=== PATIENT | female | born 1985 | race Caucasian/White ===

== ENCOUNTER 2020-09-14 13:41 | Outpatient (REF) | payer MEDICAID, SELFPAY ==
--- NOTE | ~2020-09-14 | MM_ITS ---
EXAMINATION: MM DIAGNOSTIC DIGITAL BREAST TOMOSYNTHESIS, BILATERAL US DIAGNOSTIC ULTRASOUND BREAST, BILATERAL CLINICAL INFORMATION: 35-year-old with chronic bilateral clear and milky nipple discharge with squeezing. Family history breast cancer in mother, age 50s. No prior breast imaging. The lifetime risk of breast cancer based on the Tyrer-Cuzick Model is 17%. COMPARISON: None (current study represents initial baseline exam). TECHNIQUE: Digital breast tomosynthesis is performed in both the craniocaudal and mediolateral oblique views along with computer-aided detection (CAD). Synthesized 2D images are generated from the tomosynthesis. Additional rolled right CC view obtained. Ultrasound of each breast is targeted to the retroareolar and periareolar regions using grayscale imaging and color Doppler without and with harmonics. FINDINGS: There are scattered areas of fibroglandular density (ACR BI-RADS breast composition Category b). There are no significant masses, abnormal calcifications, or other abnormalities. There is no architectural abnormality. No duct ectasia. The axilla and skin contours are unremarkable. The left breast has circumscribed 0.6 cm intramammary node mid 5:30 o'clock position with central fatty hilus on tomography. Targeted ultrasound left breast shows no cystic or solid mass, architectural abnormality, or focal duct ectasia. No skin thickening or edema tracking in soft tissue planes. Targeted ultrasound right breast demonstrates circumscribed nodule retroareolar 9:00 position 1 cm from nipple measuring 0.5 cm. This most likely represents fibroadenoma and may be reassessed again with ultrasound in 6 months. There is no architectural abnormality or duct ectasia. No edema tracking in soft tissue planes or skin thickening. Results are discussed with the patient at time of visit. MM/MM tomosynthesis diagnostic BI IMPRESSION: 1. No mammographic evidence of malignancy. 2. Unremarkable targeted left breast ultrasound. 3. Periareolar circumscribed nodule 9:00 right breast under 1 cm, likely fibroadenoma. ASSESSMENT: BI-RADS 3: Probably Benign RECOMMENDATION: 1. Patient's chronic bilateral nipple discharge should be managed based on the clinical impression. This may be correlated with laboratories for possible systemic endocrine etiology. 2. Targeted right breast ultrasound in 6 months for probable subcentimeter fibroadenoma. 3. Annual bilateral mammography, beginning age 40 or earlier as clinical risk factors warrant. This patient's information was entered into a reminder system with a target due date for their next mammogram.
== END 2020-09-14 13:42 | disposition home or self-care (01) ==
LOC: HO.MAMMO 13:41
PROVIDERS: PCP Internal Medicine; Visit Provider Internal Medicine
DX: N64.4 Mastodynia (principal); N64.52 Nipple discharge; Z80.3 Family history of malignant neoplasm of breast
CPT/HCPCS: 76642; 77062; 77066

== ENCOUNTER 2021-03-29 13:29 | Outpatient (REF) | payer MEDICAID, SELFPAY ==
--- NOTE | ~2021-03-29 | US_ITS ---
EXAMINATION: US DIAGNOSTIC ULTRASOUND BREAST, RIGHT CLINICAL INFORMATION: Short interval six-month follow-up probable fibroadenoma anterior 9:00 right breast under 1 cm. Age 36. COMPARISON: Mammography and targeted breast ultrasound 09/14/2020. TECHNIQUE: Ultrasound right breast is targeted to the outer quadrant. Grayscale imaging and color Doppler are performed without and with harmonics. FINDINGS: The suspected fibroadenoma anterior 9:00 position under 1 cm is similar in size, contour, and echogenicity. There is no interval solid mass or architectural abnormality. No focal duct ectasia. Results are discussed with the patient at time of visit. US/US breast RT limited IMPRESSION: Stable probable subcentimeter fibroadenoma anterior 9:00 position. ASSESSMENT: BI-RADS 3: Probably Benign RECOMMENDATION: Targeted ultrasound right breast in 6 months. This patient's information was entered into a reminder system with a target due date for their next mammogram.
== END 2021-03-29 13:30 | disposition home or self-care (01) ==
LOC: HO.MAMMO 13:29
PROVIDERS: PCP Internal Medicine; Visit Provider Internal Medicine
DX: R92.2 Inconclusive mammogram (principal)
CPT/HCPCS: 76642

== ENCOUNTER 2021-05-25 15:35 | Outpatient (REF) | payer MEDICAID, SELFPAY ==
--- NOTE | ~2021-05-25 | XR_ITS ---
EXAMINATION: XR SHOULDER, LEFT CLINICAL INFORMATION: Left shoulder pain. COMPARISON: None TECHNIQUE: Four views of the left shoulder. FINDINGS: The bones and soft tissues are normal. No fracture. Glenohumeral and acromioclavicular alignment is anatomic with normal joint space. No abnormal soft tissue calcifications. XR/XR shoulder LT min 2V IMPRESSION: Normal left shoulder.
== END 2021-05-25 15:36 | disposition home or self-care (01) ==
LOC: HO.XRAY 15:35
PROVIDERS: Absent Provider Internal Medicine; PCP Internal Medicine; Visit Provider Family Medicine
DX: M25.512 Pain in left shoulder (principal)
CPT/HCPCS: 73030

== ENCOUNTER 2021-09-13 15:54 | Outpatient (REF) | payer MEDICAID, SELFPAY ==
--- NOTE | ~2021-09-13 | XR_ITS ---
EXAMINATION: XR HAND, LEFT CLINICAL INFORMATION: Fall, trauma, pain COMPARISON: None TECHNIQUE: Left hand is imaged in 3 views. FINDINGS: There is no acute or healing fracture, dislocation, or destructive process. The ulnar variance is within neutral. The pronator quadratus fat pad appears normal. No arthropathy. XR/XR hand wrist LT IMPRESSION: No fracture or dislocation.
--- NOTE | ~2021-09-13 | XR_ITS ---
EXAMINATION: XR LUMBOSACRAL SPINE CLINICAL INFORMATION: Fall, trauma, pain COMPARISON: AP pelvis 10/15/2016, radiographs lumbar spine 11/18/2009 TECHNIQUE: Three views of the lumbosacral spine. FINDINGS: There is normal lumbar vertebral segmentation with 5 nonrib-bearing lumbar vertebrae of normal height and normal lumbar lordosis. There is no interval lumbar vertebral fracture or compression, spondylolisthesis, destructive process. Again, there are multilevel small vertebral endplate Schmorl's nodes. There is mild disc narrowing L2-L3 and L4-L5 and degenerative disc changes also at T12-L1. The SI joints are unremarkable. Again, there is no erosive involving the sacrum and ilium left SI joint. No joint narrowing or erosive change. IUD overlying central pelvis. Bowel gas unremarkable. XR/XR lumbar spine 2-3V IMPRESSION: 1. No acute bony abnormality. No vertebral compression or fracture. 2. Degenerative disc changes T12-L1, L2-L3, L4-L5. 3. Old multilevel vertebral endplate Schmorl's nodes. Old sclerosis left SI joint. No joint narrowing or erosive change.
--- NOTE | ~2021-09-13 | XR_ITS ---
EXAMINATION: XR HIP, RIGHT CLINICAL INFORMATION: Fall, trauma, right hip pain COMPARISON: Lumbar radiographs 09/13/2021, pelvis 10/15/2016 TECHNIQUE: Two views of the right hip. FINDINGS: There is no fracture or dislocation. Bony mineralization is normal. Fine linear lucency overlying the right greater trochanter extends beyond the bone and is related to superimposed soft tissue planes. There is no hip joint narrowing or erosive change. Pubic shows no diastases. There is an IUD overlying central pelvis. XR/XR hip RT min 2V IMPRESSION: No fracture or dislocation.
== END 2021-09-13 15:55 | disposition home or self-care (01) ==
LOC: HO.XRAY 15:54
PROVIDERS: Absent Provider Internal Medicine; PCP Internal Medicine; Visit Provider Family Medicine
DX: M25.532 Pain in left wrist (principal); M25.551 Pain in right hip
CPT/HCPCS: 72100; 73110; 73130; 73502

== ENCOUNTER 2021-10-18 14:17 | Outpatient (REF) | payer MEDICAID, SELFPAY ==
--- NOTE | ~2021-10-18 | US_ITS ---
EXAMINATION: US DIAGNOSTIC ULTRASOUND BREAST, RIGHT CLINICAL INFORMATION: Follow-up probable fibroadenoma anterior 9:00 right breast measuring under 1 cm. Age 36.. COMPARISON: Targeted ultrasound right breast 03/29/2021, 09/14/2020 (diagnostic baseline, BI-RADS 3). TECHNIQUE: Ultrasound of the right breast is performed with real-time infante scale imaging and color Doppler. Ultrasound is targeted to the lateral periareolar breast. FINDINGS: The solid nodule with macrolobulated margins under 1 cm 9:00 position periareolar appears stable from prior ultrasound exams. There is no increasing nodule or regular margins. No interval cystic or solid mass or focal duct ectasia. Lesion will be reassessed again in one year to conclude long-term surveillance. Results are discussed with the patient at time of visit. US/US breast RT limited IMPRESSION: Stable small solid nodule periareolar 9:00 position measuring under 1 cm, likely fibroadenoma. ASSESSMENT: BI-RADS 3: Probably Benign RECOMMENDATION: Targeted right breast ultrasound in 12 months. This patient's information was entered into a reminder system with a target due date for their next breast imaging.
== END 2021-10-18 14:18 | disposition home or self-care (01) ==
LOC: HO.MAMMO 14:17
PROVIDERS: PCP Internal Medicine; Visit Provider Internal Medicine
DX: D24.1 Benign neoplasm of right breast (principal)
CPT/HCPCS: 76642

== ENCOUNTER 2022-09-22 15:46 | Outpatient (REF) | payer MEDICAID, SELFPAY ==
--- NOTE | ~2022-09-22 | US_ITS ---
EXAMINATION: US PELVIC AND TRANSVAGINAL CLINICAL INFORMATION: Abnormal uterine bleeding. COMPARISON: CT pelvis 02/14/2017. TECHNIQUE: Ultrasound of the pelvis is performed using both transabdominal and transvaginal transducers along with Doppler. Transvaginal imaging is performed due to inadequate visualization transabdominally. FINDINGS: UTERUS: The uterus is anteverted and retroflexed measuring 10.5 x 5.3 x 6.3 cm. The double wall endometrial thickness is 10 mm. An IUD is present in the uterus in excellent position. The uterus is smooth in contour and has normal myometrial echogenicity. No visible fibroid. ADNEXA: Both ovaries are visualized. There is normal color flow to the adnexa. There is no ovarian torsion. There is no pelvic ascites or fluid collection. Right ovary measures 4.5 x 2.4 x 2.1 cm for a volume of 11.9 mL. Left ovary measures 3.0 x 1.9 x 2.5 cm for a volume of 7.5 mL. US/US pelvic and transvaginal IMPRESSION: An IUD is present in the uterus. The exam is otherwise unremarkable.
== END 2022-09-22 15:47 | disposition home or self-care (01) ==
LOC: HO.US 15:46
PROVIDERS: PCP Family Medicine; Visit Provider Family Medicine
DX: N93.9 Abnormal uterine and vaginal bleeding, unspecified (principal)
CPT/HCPCS: 76830; 76856

== ENCOUNTER 2022-10-18 14:14 | Outpatient (REF) | payer MEDICAID, SELFPAY ==
--- NOTE | ~2022-10-18 | US_ITS ---
EXAMINATION: US DIAGNOSTIC ULTRASOUND BREAST, RIGHT CLINICAL INFORMATION: Follow-up small circumscribed nodule anterior 9:00 right breast, suspected fibroadenoma. COMPARISON: Right breast ultrasound 10/18/2021, 03/29/2021, 09/14/2020 (diagnostic, BI-RADS 3). TECHNIQUE: Ultrasound of the breast is performed with real-time infante scale imaging and color Doppler. FINDINGS: The circumscribed solid nodule retroareolar 9:00 right breast is stable in size and contour, measuring approximately 0.5 cm. There is no interval growth and it is now considered to be benign. At time of imaging, patient notes recent inferior right breast tenderness. Additional ultrasound imaging of the inferior right breast shows no cystic or solid mass, architectural abnormality, or focal duct ectasia. There is no skin thickening or edema tracking in soft tissue planes. No hyperemia on color Doppler. Results are discussed with the patient at time of visit. US/US breast RT limited IMPRESSION: -Small circumscribed nodule 9:00 retroareolar right breast is stable and now considered to be benign. -Unremarkable additional targeted ultrasound inferior right breast. ASSESSMENT: BI-RADS 2: Benign RECOMMENDATION: 1. Patient's recent right mastodynia may be managed based on clinical impression as needed. 2. Routine annual bilateral mammography, beginning age 40, or earlier as clinical risk factors warrant. This patient's information was entered into a reminder system with a target due date for their next mammogram.
== END 2022-10-18 14:15 | disposition home or self-care (01) ==
LOC: HO.MAMMO 14:14
PROVIDERS: PCP Family Medicine; Visit Provider Internal Medicine
DX: N63.15 Unspecified lump in the right breast, overlapping quadrants (principal)
CPT/HCPCS: 76642

== ENCOUNTER 2023-01-04 15:53 | Outpatient (REF) | payer OTHER, SELFPAY ==
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
== END 2023-01-04 15:54 | disposition home or self-care (01) ==
LOC: HO.XRAY 15:53
PROVIDERS: Visit Provider Internal Medicine
DX: M54.2 Cervicalgia (principal)
CPT/HCPCS: 72050

== ENCOUNTER 2023-01-11 09:04 | Inpatient (IN) | payer MEDICAID, SELFPAY ==
[2023-01-11] VITALS (8 sets, daily range): BP systolic 115–156; BP diastolic 65–92; PULSE 70–87; RESP 16–18; TEMP 36.2–37.1; O2SAT 97–100; BMI 38.4
--- NOTE | ~2023-01-11 | FL_ITS ---
EXAMINATION: XR FLUOROSCOPY WITH IMAGES CLINICAL INFORMATION: Left kidney stone. COMPARISON: None available. TECHNIQUE: Fluoroscopy Supervised By: Dr. Randall Gonzalez. Fluoroscopy Time: 24 seconds. Cumulative Dose: 10.80 mGy. Images: 1. FINDINGS: A single image obtained in the OR by Dr. Gonzalez reveals a internal ureteral stent in kidney pelvis. The distal end is not in the [id number]. No radiopaque calculi seen. FL/FL guidance in OR IMPRESSION: Fluoroscopy guidance was provided for referring physician.
--- NOTE | ~2023-01-11 | CT_ITS ---
EXAMINATION: CT ABDOMEN AND PELVIS WITHOUT CONTRAST CLINICAL INFORMATION: Left flank pain. COMPARISON: 11/13/2013 TECHNIQUE: Multidetector volumetric imaging was performed from the superior aspect of the liver through the pubic symphysis. Sagittal and coronal reformatted images were obtained on the technologist's workstation. This CT examination was performed using dose optimization techniques as appropriate, variously including the following: *Automated exposure control *Adjustment of mA and/or kV according to patient size (this includes techniques or standardized protocols for targeted exams where dose is matched to indication/reason for exam; i.e. extremities or head) *Use of iterative reconstruction technique DLP: 916 mGy-cm FINDINGS: LUNG BASES: 3 mm nodule right lower lobe on image 3 of series 7. LIVER, GALLBLADDER, AND BILIARY TREE: The noncontrast liver is normal in size and contour. No biliary ductal dilatation is present. The gallbladder is surgically absent. PANCREAS: No ductal dilatation. SPLEEN: Not enlarged. ADRENAL GLANDS: No adrenal masses. KIDNEYS AND URETERS: 6 mm calculus impacted in the distal left ureter with moderate left hydroureteronephrosis. Left perinephric and periureteric stranding. There is edema of the left kidney. There are bilateral nonobstructing renal calculi. No right hydroureter nephrosis or hydroureter. No right perinephric stranding. Hyperdense medullary pyramids. BLADDER: Decompressed. No bladder calculus is seen. GASTROINTESTINAL TRACT: Small and large bowel loops are of normal caliber. No small bowel obstruction. ABDOMINAL WALL: No significant hernia is appreciated. LYMPH NODES: No bulky abdominal or pelvic lymphadenopathy. VASCULAR: Normal caliber abdominal aorta. PELVIC VISCERA: Intrauterine device is in place. Trace pelvic free fluid. OSSEOUS STRUCTURES: No destructive bone lesions. CT/CT abdomen pelvis wo IV con IMPRESSION: 6 mm calculus impacted in the distal left ureter with moderate left hydroureteronephrosis. Bilateral nephrolithiasis. 3 mm right lower lobe pulmonary nodule. This has been stable since 2013.
--- NOTE | 2023-01-11 09:32 | ED.GENADULT ---
HPI - General Adult General Chief complaint: Abdominal Pain Stated complaint: lower left pain back & abd Time Seen by Provider: 01/11/23 09:13 Source: patient and RN notes reviewed Mode of arrival: ambulatory Limitations: no limitations History of Present Illness HPI narrative: This is a 37-year-old female, with a past medical history of kidney stones, presenting to the emergency department with complaints of lower flank pain and abdominal pain x 3 days. Patient reports that the pain is waxing and waning, but is consistently present. She describes her pain as a stabbing and pressure-like sensation. She endorses nausea. Patient denies any fevers, chills, vomiting or diarrhea. Denies urinary urgency, frequency, dysuria, or hematuria. Patient reports that she has a history of kidney stones past. She has been taking ibuprofen for her symptoms which has provided her without any relief. No other complaints or concerns at this time. MD complaint: Left flank pain Onset (ago): day(s) Radiation: flank Severity: moderate Quality: stabbing and aching Pain Consistency: intermittent Relieving factors: medication Exacerbating factors: none Associated symptoms: nausea/vomiting Treatments prior to arrival: none Related Data Allergies Allergy/AdvReac Type Severity Reaction Status Date / Time vancomycin [VANCOMYCIN] Allergy Intermediate ITCHING/REDNESS Unverified 04/02/20 16:05 (RED KIRSTIN SYNDROME), itching Review of Systems Review of Systems: Constitutional: No Weight loss, No Fever, No Chills, No Night Sweats, No Fatigue, No Malaise ENT/Mouth: No Hearing loss, No Ear Pain, No Nasal Congestion, No Sinus Pain, No Hoarseness, No sore throat, No Rhinorrhea, No Swallowing Difficulty Eyes: No Eye Pain, No Swelling, No Redness, No Foreign Body, No Discharge, No Vision Changes Cardiovascular: No Chest Pain, No SOB, No Dyspnea on Exertion, No Orthopnea, No Edema, No Palpitations Respiratory: No Cough, No Sputum, No Wheezing, No Smoke Exposure, No Dyspnea Gastrointestinal: + Nausea, + Vomiting, No Diarrhea, No Constipation, + Abdominal pain, No Hematochezia, No Melena Genitourinary: No irregular bleeding, No Dysuria, No Urinary Frequency, No Hematuria, No Urinary Incontinence/retention, No Urgency, No Flank Pain, No Urinary Flow Changes, No Hesitancy Musculoskeletal: No joint pain, No Myalgias, No Joint Swelling Skin: No Skin Lesions, No rash Neuro: No Weakness, No Numbness, No Paresthesias, No Loss of Consciousness, No Dizziness, No Headache Psych: No Anxiety/Panic, No Depression, No SI/HI/AH/VH, No Social Issues, Heme/Lymph: No Bruising, No Bleeding,No Lymphadenopathy Endocrine: No Polyuria, No Polydipsia, No Temperature Intolerance Yes all other systems are reviewed and are negative Constitutional: Constitutional: Reports as per [facility] Social History Social History Advance Directives: No Advance Directives Information Provided: No Physical Exam ED Vital Signs: Vital Signs - 24 hr 01/11/23 09:15 01/11/23 09:41 01/11/23 12:44 Temperature 97.5 F 97.5 F Pulse Rate 73 73 70 Respiratory Rate 17 18 16 Blood Pressure 156/92 H 148/79 H 120/65 Pulse Oximetry 99 98 100 Oxygen Delivery Method Room Air Room Air Room Air BMI result Body Mass Index 38.4 Const General: cooperative, comfortable and no acute distress Orientation/consciousness: patient oriented x3 Limitations: no limitations HENMT Head: Yes normal to inspection, Yes normocephalic and Yes atraumatic Ears: hearing grossly normal bilaterally General nose exam: Normal external nose present Face and sinus: Yes normal facial exam Mouth: Normal oral and palatal mucosa present, oropharynx normal and moist mucous membranes Throat: Yes posterior oropharynx normal Eyes General: appearance normal, both eyes and all related structures Eyelids: Yes eyelids normal Conjunctivae: conjunctivae normal Sclerae: sclerae normal Pupils: Equal, round and reactive pupils present EOM: EOMs intact bilaterally Neck Neck: Yes normal visual inspection, Yes full ROM and Yes no lymphadenopathy Lymphatic: no lymphadenopathy noted Chest Chest palpation & inspection: normal inspection of the chest Resp Effort & Inspection: normal respiratory effort and able to speak in complete sentences Auscultation: clear to auscultation bilaterally, no crackles, no rales, no rhonchi and no wheezes Cardio Rate: regular rate Rhythm: regular rhythm Heart sounds: S1 normal heart sound present and S2 normal heart sound present GI Other: Abdomen is soft, tenderness to palpation in the left lower abdomen. No rebound or guarding. Inspection: Yes normal to inspection Other: CVA tenderness on the left Skin General skin exam: no rashes or lesions noted Trauma: no lacerations or abrasions Wounds: no wounds Neuro General: patient oriented x3 and moves all extremities Cranial nerves: Yes Equal, round and reactive pupils present Extrem General: Yes normal to inspection Right upper extremity: normal to inspection Left upper extremity: normal to inspection Right lower extremity: normal to inspection Left lower extremity: normal to inspection Course Reevaluation(s) Reevaluation #1: Patient re-evaluated, reporting she is feeling much better after receiving IV fluids, Toradol, and Zofran. Patient admits to still having pressure-like sensation in her left flank. CT abdomen returns revealing a 6 mm calculus impacted in the distal left ureter with moderate left hydro ureter nephrosis and bilateral nephrolithiasis. Case discussed with urologist, Dr. Jennings Time: 12:46 Reevaluation #2: Discussed case with Dr. Jennings who agrees to admit patient overnight. Discussed with patient who agrees to hospital admission. Transfer of care initiated. Time: 13:35 Medications Administered Discontinued Medications Generic Name Dose Route Start Last Admin Trade Name Freq PRN Reason Stop Dose Admin Sodium Chloride 1,000 mls @ 999 mls/hr 01/11/23 10:23 01/11/23 11:05 Ns IV 01/11/23 11:23 999 mls/hr .Q1H1M ONE Administration Ketorolac Tromethamine 30 mg 01/11/23 10:23 01/11/23 11:05 Ketorolac Tromethamine 30 Mg/Ml Vial IVPUSH 01/11/23 10:24 30 mg ONCE ONE Administration Ondansetron HCl 4 mg 01/11/23 10:23 01/11/23 11:05 Ondansetron Hcl 4 Mg/2 Ml Vial IVPUSH 01/11/23 10:24 4 mg ONCE ONE Administration Medical Decision Making Medical Decision Making MDM Narrative: 37-year-old female presenting to the emergency department for evaluation of left flank pain x3 days. Patient endorsing nausea, no fevers, vomiting, diarrhea, or urinary symptoms.. History of kidney stones which has required lithotripsy in the past many years ago. States that her symptoms feel similar to kidney stone she has had in the past. Patient's vital signs within normal limits, patient is afebrile. Plan: Labs, UA, CT abdomen pelvis. Differential Diagnosis Differential Diagnoses: The differential diagnosis associated with the presentation includes Nephrolithiasis, pyelonephritis, hydronephrosis, urinary tract infection, diverticulitis, diverticulosis, gastritis, gastroenteritis Admission/Observation Consideration of admission/observation: Escalation of care including admission/observation considered Escalation of care including an admission and observation considered given previous history of kidney stones and similar presentation. Consult Healthcare Provider Management of the patient was discussed with: [employer] Dr. Jennings, urologist Lab Data MDM Lab Attestation statement: I reviewed the patient's lab results. No leukocytosis, H and H within normal limits, urine with moderate blood, trace leuk esterases, RBCs 11 through 20. BUN and creatinine within normal limits. 01/11/23 10:40 01/11/23 10:40 Labs: Lab Results 01/11/23 01/11/23 01/11/23 Range/Units 10:40 10:40 11:03 WBC 7.3 (4.8-10.8) X10*3/uL RBC 4.56 (4.20-5.50) X10*6/uL Hgb 12.4 (12.0-16.0) g/dl Hct 38.2 (37.0-47.0) % MCV 83.8 (80.0-98.0) fL MCH 27.2 (27.0-33.0) pg MCHC 32.5 (31.0-35.0) g/dl RDW 13.9 (11.0-16.0) % Plt Count 376 (160-400) X10*3/uL MPV 8.5 L (9.4-12.3) fL Immature Gran % (Auto) 0.4 (0.0-0.4) % Neut % (Auto) 73.3 H (45-73) % Lymph % (Auto) 17.4 L (20-40) % [place] % (Auto) 6.6 (2-11) % Eos % (Auto) 1.9 (0-4) % Baso % (Auto) 0.4 (0-2) % Lymph # (Auto) 1.3 (1.2-4.9) X10*3/uL [place] # (Auto) 0.5 (0.1-1.2) X10*3/uL Eos # (Auto) 0.1 (0.0-0.4) X10*3/uL Baso # (Auto) 0.0 (0.0-0.2) X10*3/uL Abs Immat Gran (auto) 0.03 (0.00-0.03) X10*3/uL Absolute Neuts (auto) 5.3 (2.0-8.3) x10*3/uL Absolute Nucleated RBC 0.000 (0.0-0.012) X10*3/uL Nucleated RBC % (auto) 0.0 (0.0-0.2) /100WBC Sodium 135 (135-145) mmol/L Potassium 5.0 (3.3-5.1) mmol/L Chloride 103 (96-108) mmol/L Carbon Dioxide 26 (22-29) mmol/L Anion Gap 11 L (12-20) BUN 14 (9-16) mg/dL Creatinine 1.19 (0.5-1.4) mg/dL Estim Creat Clear Calc 70.3 Estimated GFR 51 Random Glucose 107 (60-115) mg/dL Calcium 9.5 (8.4-10.2) mg/dL Total Bilirubin 0.3 (0.0-1.0) mg/dL Direct Bilirubin 0.1 (0.0-0.5) mg/dL AST 12 (5-31) U/L ALT 13 (0-31) U/L Alkaline Phosphatase 48 (39-117) U/L Total Protein 7.8 (6.5-8.0) g/dL Albumin 4.2 (3.5-5.0) g/dL Lipase 30 (8-78) U/L Urine Color Yellow Urine Appearance Clear Urine pH 5.5 (5.0-9.0) Ur Specific [place] 1.010 (1.005-1.025) Urine Protein Negative (Neg-Trace) mg/dL Urine Glucose (UA) Negative (Negative) mg/dL Urine Ketones Negative (Negative) mg/dL Urine Blood Moderate (2+) H (Negative) Urine Nitrite Negative (Negative) Ur Leukocyte Esterase Trace H (Negative) Urine RBC 11-20 H (0-2) /HPF Urine WBC 0-5 (0-5) /HPF Ur Squamous Epith Cells 3-5 (0-2) /HPF Urine Bacteria None Seen (None Seen) Hyaline Casts 3-5 (0-2) /LPF Urine Test (NEGATIVE) 01/11/23 Range/Units 11:03 WBC (4.8-10.8) X10*3/uL RBC (4.20-5.50) X10*6/uL Hgb (12.0-16.0) g/dl Hct (37.0-47.0) % MCV (80.0-98.0) fL MCH (27.0-33.0) pg MCHC (31.0-35.0) g/dl RDW (11.0-16.0) % Plt Count (160-400) X10*3/uL MPV (9.4-12.3) fL Immature Gran % (Auto) (0.0-0.4) % Neut % (Auto) (45-73) % Lymph % (Auto) (20-40) % [place] % (Auto) (2-11) % Eos % (Auto) (0-4) % Baso % (Auto) (0-2) % Lymph # (Auto) (1.2-4.9) X10*3/uL [place] # (Auto) (0.1-1.2) X10*3/uL Eos # (Auto) (0.0-0.4) X10*3/uL Baso # (Auto) (0.0-0.2) X10*3/uL Abs Immat Gran (auto) (0.00-0.03) X10*3/uL Absolute Neuts (auto) (2.0-8.3) x10*3/uL Absolute Nucleated RBC (0.0-0.012) X10*3/uL Nucleated RBC % (auto) (0.0-0.2) /100WBC Sodium (135-145) mmol/L Potassium (3.3-5.1) mmol/L Chloride (96-108) mmol/L Carbon Dioxide (22-29) mmol/L Anion Gap (12-20) BUN (9-16) mg/dL Creatinine (0.5-1.4) mg/dL Estim Creat Clear Calc Estimated GFR Random Glucose (60-115) mg/dL Calcium (8.4-10.2) mg/dL Total Bilirubin (0.0-1.0) mg/dL Direct Bilirubin (0.0-0.5) mg/dL AST (5-31) U/L ALT (0-31) U/L Alkaline Phosphatase (39-117) U/L Total Protein (6.5-8.0) g/dL Albumin (3.5-5.0) g/dL Lipase (8-78) U/L Urine Color Urine Appearance Urine pH (5.0-9.0) Ur Specific [place] (1.005-1.025) Urine Protein (Neg-Trace) mg/dL Urine Glucose (UA) (Negative) mg/dL Urine Ketones (Negative) mg/dL Urine Blood (Negative) Urine Nitrite (Negative) Ur Leukocyte Esterase (Negative) Urine RBC (0-2) /HPF Urine WBC (0-5) /HPF Ur Squamous Epith Cells (0-2) /HPF Urine Bacteria (None Seen) Hyaline Casts (0-2) /LPF Urine Test NEGATIVE (NEGATIVE) Independent Interpretation I performed an independent interpretation of an: CT Scan Interpretation: I reviewed the CT scan and agree with the radiology report. Radiology Impression Discussion of test interpretation with radiology: I have reviewed the radiologist's reading. Radiologist Impression: CLINICAL INFORMATION: Left flank pain.? COMPARISON: 11/13/2013 TECHNIQUE: Multidetector volumetric imaging was performed from the superior aspect of the liver through the pubic symphysis. Sagittal and coronal reformatted images were obtained on the technologist's workstation.? This CT examination was performed using dose optimization techniques as appropriate, variously including the following: *Automated exposure control *Adjustment of mA and/or kV according to patient size (this includes techniques or standardized protocols for targeted exams where dose is matched to indication/reason for exam; i.e. extremities or head) *Use of iterative reconstruction technique DLP: 916 mGy-cm FINDINGS: LUNG BASES: 3 mm nodule right lower lobe on image 3 of series 7.? LIVER, GALLBLADDER, AND BILIARY TREE: The noncontrast liver is normal in size and contour. No biliary ductal dilatation is present. The gallbladder is surgically absent.? PANCREAS: No ductal dilatation. SPLEEN: Not enlarged. ADRENAL GLANDS: No adrenal masses. KIDNEYS AND URETERS: 6 mm calculus impacted in the distal left ureter with moderate left hydroureteronephrosis. Left perinephric and periureteric stranding. There is edema of the left kidney. There are bilateral nonobstructing renal calculi. No right hydroureter nephrosis or hydroureter. No right perinephric stranding. Hyperdense medullary pyramids. BLADDER: Decompressed. No bladder calculus is seen. GASTROINTESTINAL TRACT: Small and large bowel loops are of normal caliber. No small bowel obstruction. ABDOMINAL WALL: No significant hernia is appreciated.? LYMPH NODES: No bulky abdominal or pelvic lymphadenopathy. VASCULAR: Normal caliber abdominal aorta. PELVIC VISCERA: Intrauterine device is in place. Trace pelvic free fluid. OSSEOUS STRUCTURES: No destructive bone lesions. CT/CT abdomen pelvis wo IV con IMPRESSION: 6 mm calculus impacted in the distal left ureter with moderate left hydroureteronephrosis. ? Bilateral nephrolithiasis. ? 3 mm right lower lobe pulmonary nodule. This has been stable since 2014. Dictated By: Samir Watson MD Prescription Management I considered prescription management with: Pain Medication Discharge Plan Discharge Clinical Impression: Nephrolithiasis, Hydroureteronephrosis Patient Disposition: Admitted As Inpatient
[2023-01-11 10:45] LABS: MANUAL DIFF FLAG NO
[2023-01-11 10:48] LABS: Basophils Percent Auto 0.4 % (0-2); Eosinophils Absolute Auto 0.1 X10*3/uL (0.0-0.4); Eosinophils Percent Auto 1.9 % (0-4); Hematocrit 38.2 % (37.0-47.0); Hemoglobin 12.4 g/dl (12.0-16.0); Imm Gran Abs Auto 0.03 X10*3/uL (0.00-0.03); Imm Gran Pct Auto 0.4 % (0.0-0.4); Lymphocytes Absolute Auto 1.3 X10*3/uL (1.2-4.9); Lymphocytes Percent Auto 17.4 % (20-40); Mean Corpuscular HGB Conc 32.5 g/dl (31.0-35.0); Mean Corpuscular Hemoglobin 27.2 pg (27.0-33.0); Mean Corpuscular Volume 83.8 fL (80.0-98.0); Mean Platelet Volume 8.5 fL (9.4-12.3); Monocytes Absolute Auto 0.5 X10*3/uL (0.1-1.2); Monocytes Percent Auto 6.6 % (2-11); Neutrophils Absolute Auto 5.3 x10*3/uL (2.0-8.3); Neutrophils Percent Auto 73.3 % (45-73); Platelet Count 376 X10*3/uL (160-400); Red Blood Count 4.56 X10*6/uL (4.20-5.50); Red Cell Distribution Width 13.9 % (11.0-16.0); White Blood Count 7.3 X10*3/uL (4.8-10.8)
[2023-01-11] MEDS: 0.9 % Sodium Chloride 1,000 ML 999 ML IV (11:05)
[2023-01-11] MEDS: Ketorolac Tromethamine 30 MG/ML VIAL IVPUSH (11:05)
[2023-01-11] MEDS: ondansetron HCL 4 MG/2 ML VIAL IVPUSH (11:05)
[2023-01-11 11:10] LABS: Alanine Aminotransferase 13 U/L (0-31); Albumin Level 4.2 g/dL (3.5-5.0); Alkaline Phosphatase 48 U/L (39-117); Anion Gap 11 (12-20); Aspartate Amino Transferase 12 U/L (5-31); Bilirubin Direct 0.1 mg/dL (0.0-0.5); Bilirubin Total 0.3 mg/dL (0.0-1.0); Blood Urea Nitrogen 14 mg/dL (9-16); Calcium 9.5 mg/dL (8.4-10.2); Carbon Dioxide 26 mmol/L (22-29); Chloride 103 mmol/L (96-108); Creatinine Clr Calc Pharmacy 70.3; Estimated Glomerular Filt Rate 51; Glucose Random 107 mg/dL (60-115); Lipase 30 U/L (8-78); Sodium 135 mmol/L (135-145); Total Protein 7.8 g/dL (6.5-8.0)
[2023-01-11 11:15] LABS: Appearance Urine Clear; Color Urine Yellow; Glucose Urine UA Negative (Negative); Leukocyte Esterase Urine Trace (Negative); Nitrite Urine Negative (Negative); PH 5.5 (5.0-9.0); UMIC TRIGGER UACC YES; Urine Blood Moderate (2+) (Negative); Urine Ketones Negative (Negative); Urine Protein Negative (Neg-Trace)
[2023-01-11 11:16] LABS: UPreg QC Valid YES; Urine Pregnancy NEGATIVE (NEGATIVE)
[2023-01-11 11:22] LABS: Bacteria Urine None Seen (None Seen); WBC Urine 0-5 /HPF (0-5)
--- NOTE | 2023-01-11 13:55 | PHA.MEDREC ---
Pharmacy Consult ? Medication Reconciliation Pharmacy has completed the medication reconciliation.
--- NOTE | 2023-01-11 16:58 | P.HPGS_ITS ---
History of Present Illness History of Present Illness Date of Service: 01/11/23 Chief complaint: Nephrolithiasis Narrative: Nedra Martinez is a 37 year old female Presents to hospital 5 day history of left flank pain radiating to left lower quadrant Prior history nephrolithiasis Mother also has history of nephrolithiasis Has passed multiple stones in the past and had ESWL Dr. Dueñas however has not been seen by Urology for a number of years Imaging shows 7 mm distal left ureteric stone with hydroureteronephrosis WBC 7.3, creatinine 1.2 Minimal past medical history Regular medications Admit for trial of stone passage May require ureteroscopy with stone removal if fails stone Trial This was discussed with patient Review of Systems Constitutional: Constitutional: Reports as per HPI and Reports no additional constitutional complaints Cardiovascular: Cardiovascular: Reports as per HPI and Reports no additional cardiovascular complaints Respiratory: Respiratory: Reports as per HPI and Reports no additional respiratory complaints Gastrointestinal: Gastrointestinal: Reports as per HPI and Reports no additional gastrointestinal complaints Genitourinary: Genitourinary: Reports as per HPI Musculoskeletal: Musculoskeletal: Reports no additional musculoskeletal complaints and Reports as per HPI Neurologic: Reports system reviewed and no additional complaints, except as documented and Reports as per HPI PMFSH Social History Social History Advance Directives: No Advance Directives Information Provided: No Meds Allergies Allergy/AdvReac Type Severity Reaction Status Date / Time vancomycin [VANCOMYCIN] Allergy Intermediate ITCHING/REDNESS Unverified 04/02/20 16:05 (RED KIRSTIN SYNDROME), itching Active Medications: Current Medications Acetaminophen (Acetaminophen Supp 650 Mg Supp.Rect) 650 mg CO Q6H PRN PRN Reason: Pain, Mild (Pain Scale 1-3) Sodium Chloride (Ns) 1,000 mls @ 100 mls/hr IVCONT .Q10H AIDEN Ketorolac Tromethamine (Ketorolac Tromethamine 15 Mg/Ml Vial) 15 mg IVPUSH Q6H PRN PRN Reason: Pain, Moderate(Pain Scale 4-6) Ondansetron HCl (Ondansetron Hcl 4 Mg/2 Ml Vial) 4 mg IVPUSH Q8H PRN PRN Reason: Nausea Oxycodone HCl (Oxycodone Hcl Immed Release 5 Mg Tablet) 5 mg PO Q6H PRN PRN Reason: Pain, Severe (Pain Scale 7-10) Pharmacy Consult (Consult Rx Perform Med Rec) 1 each MISCELLANE ONCE PRN PRN Reason: Consult order Sodium Chloride (0.9 % Sodium Chloride Flush 3 Ml Syringe) 3 ml IVFLUSH QSHIFT [facility] Home Medications Medication Instructions Recorded Confirmed Last Taken Type methocarbamol 500 mg tablet 500 mg PO Q6H PRN Muscle Spasm 01/11/23 01/11/23 Unknown History naproxen 500 mg tablet 500 mg PO BID PRN Pain 01/11/23 01/11/23 Unknown History Physical Exam Vital Signs: Vital Signs: Last Vital Signs Temp 97.5 F 01/11/23 09:41 Pulse 73 01/11/23 16:57 Resp 17 01/11/23 16:57 BP 125/66 01/11/23 16:57 Pulse Ox 99 01/11/23 16:57 O2 Del Method Room Air 01/11/23 16:57 BMI result Body Mass Index 38.4 Const: General: cooperative, healthy appearing, comfortable and no acute distress Orientation/consciousness: patient oriented x3 HEENT: Face and sinus: Yes normal facial exam Mouth: moist mucous membranes Neck: Neck: Yes normal visual inspection, Yes full ROM and Yes trachea midline Chest: Chest palpation & inspection: normal inspection of the chest Resp: Effort & Inspection: normal respiratory effort, able to speak in complete sentences and no respiratory distress GI: Inspection: Yes normal to inspection Back/Spine/Pelvis: Cervical Spine: normal cervical lordosis Thoracic/Lumbar Spine: thoracic and lumbar spine normal to inspection Skin: General skin exam: no rashes or lesions noted Neuro: General: patient oriented x3, tone normal and moves all extremities Extrem: General: Yes normal to inspection and Yes capillary refill normal Results Results Labs: Short CBC 01/11/23 Range/Units 10:40 WBC 7.3 (4.8-10.8) X10*3/uL Hgb 12.4 (12.0-16.0) g/dl Hct 38.2 (37.0-47.0) % Plt Count 376 (160-400) X10*3/uL BMP 01/11/23 10:40 Sodium 135 Potassium 5.0 Chloride 103 Carbon Dioxide 26 BUN 14 Creatinine 1.19 Calcium 9.5 Liver Function 01/11/23 Range/Units 10:40 Total Bilirubin 0.3 (0.0-1.0) mg/dL Direct Bilirubin 0.1 (0.0-0.5) mg/dL AST 12 (5-31) U/L ALT 13 (0-31) U/L Alkaline Phosphatase 48 (39-117) U/L Albumin 4.2 (3.5-5.0) g/dL Urine 01/11/23 01/11/23 Range/Units 11:03 11:03 Urine Color Yellow Urine Appearance Clear Urine pH 5.5 (5.0-9.0) Ur Specific [place] 1.010 (1.005-1.025) Urine Protein Negative (Neg-Trace) mg/dL Urine Glucose (UA) Negative (Negative) mg/dL Urine Test NEGATIVE (NEGATIVE) Assessment and Plan (1) Nephrolithiasis: Status: Acute Plan Admission with observation Time Spent With Patient Time: Total time managing care of this patient today ____ minutes. Quality Stroke Does the patient have a stroke diagnosis?: No VTE Prior VTE?: No VTE Risk Level:: Medical - low VTE Device Contraindication: Treatment Not Indicated VTE Drug Contraindication: Treatment Not Indicated Procedures Date of Service Date of Service: 01/11/23
[2023-01-11] MEDS: 0.9 % Sodium Chloride 1,000 ML 100 ML IVCONT (17:33)
[2023-01-12] VITALS (9 sets, daily range): BP systolic 120–146; BP diastolic 62–90; PULSE 72–94; RESP 14–20; TEMP 36.2–37.2; O2SAT 95–99
[2023-01-12] MEDS: 0.9 % Sodium Chloride 1,000 ML 100 ML IVCONT (04:03)
[2023-01-12] MEDS: Ketorolac Tromethamine 15 MG/ML VIAL IVPUSH (14:26)
--- NOTE | 2023-01-12 16:46 | PM.UROPN ---
Subjective Subjective Date of Service: 01/12/23 Interval history: Failure of stone to pass Recommend intervention Cystoscopy, left retrograde, left ureteroscopy with laser lithotripsy stent placement Physical Exam Vital Signs: Vital Signs: Last Vital Signs Temp 97.1 F 01/12/23 16:05 Pulse 73 01/12/23 16:05 Resp 16 01/12/23 16:05 BP 129/82 01/12/23 16:05 Pulse Ox 99 01/12/23 16:05 O2 Del Method Room Air 01/12/23 16:05 BMI result Body Mass Index 38.4 Const: General: cooperative, healthy appearing, comfortable and no acute distress Orientation/consciousness: patient oriented x3 HEENT: Face and sinus: Yes normal facial exam Mouth: moist mucous membranes Neck: Neck: Yes normal visual inspection, Yes full ROM and Yes trachea midline Chest: Chest palpation & inspection: normal inspection of the chest Resp: Effort & Inspection: normal respiratory effort, able to speak in complete sentences and no respiratory distress GI: Inspection: Yes normal to inspection Back/Spine/Pelvis: Cervical Spine: normal cervical lordosis Thoracic/Lumbar Spine: thoracic and lumbar spine normal to inspection Skin: General skin exam: no rashes or lesions noted Neuro: General: patient oriented x3, tone normal and moves all extremities Extrem: General: Yes normal to inspection and Yes capillary refill normal Urology Results Labs 01/11/23 10:40 01/11/23 10:40 Progress Note: A&P Assessment and plan (1) Nephrolithiasis: Status: Acute (2) Hydroureteronephrosis: Status: Acute Plan Ureteroscopy We discussed the nature of the decision and reasonable alternatives for performing ureteroscopy. Options such as medical therapy were discussed. Interventions include chemical dissolution, ESWL, ureteroscopy with laser lithotripsy and stent placement, PCNL. The relative uncertainties and benefits related to each alternate procedure were adequately discussed. General surgical risks including, but not limited to - pain, bleeding, infection, myocardial infarction, pulmonary embolus, deep vein thrombosis and cerebrovascular accident which may result in further hospitalization were discussed. Full disclosure of the procedure as well as all major risks, benefits and complications were discussed including but not limited to damage to the urethra, bladder and kidney infection, damage to the ureter, stent migration or malposition, scarring to the renal pelvis, remnant stone fragments, subsequent stone passage with need for secondary procedures. The overall secondary procedure rate is approximately 10-15%. The overall clearance rate is approximately 90-95%. Success of the procedure in the short-term does not necessarily guarantee that long-term success will be maintained. Suitable follow up will need to be maintained. The patient showed understanding of discussion and wishes to proceed with - cystoscopy, retrograde, ureteroscopy, possible lithotripsy/stone basketing and stent on the left side Time Spent With Patient Time: Total time managing care of this patient today ____ minutes. Progress Note: Quality Stroke Does the patient have a stroke diagnosis?: No
--- NOTE | 2023-01-12 16:49 | HO.ANESPROP2 ---
HPI - Anesthesia Eval Consult details Narrative: 37 F for cysto GERD functional status greater than 4 mets . denies any CP or SOB jaw Surgery in the past for underbite PMFSH Active Problems Active Problems: All Active Problems (Updated 01/11/23 @ 13:37 by WANDA Almazan) Nephrolithiasis (Acute) Hydroureteronephrosis (Acute) Past Medical History Functional capacity: independent ambulation Family History Family history of problems with anesthesia: No Surgical History History of Problems with Anesthesia: No Social History Social History Household Members: Family Housing: House Do you presently have visiting nurse or other home services: No Alcohol intake: current Alcohol intake frequency: holidays/special occasions only Patient Tobacco Use Status: Never used Tobacco Meds Allergies Allergy/AdvReac Type Severity Reaction Status Date / Time vancomycin [VANCOMYCIN] Allergy Intermediate ITCHING/REDNESS Unverified 04/02/20 16:05 (RED KIRSTIN SYNDROME), itching Active Medications: Current Medications Acetaminophen (Acetaminophen Supp 650 Mg Supp.Rect) 650 mg UT Q6H PRN PRN Reason: Pain, Mild (Pain Scale 1-3) Sodium Chloride (Ns) 1,000 mls @ 100 mls/hr IVCONT .Q10H [facility] Last Infusion: 01/12/23 14:09 Dose: Infused Ketorolac Tromethamine (Ketorolac Tromethamine 15 Mg/Ml Vial) 15 mg IVPUSH Q6H PRN PRN Reason: Pain, Moderate(Pain Scale 4-6) Last Admin: 01/12/23 14:26 Dose: 15 mg Ondansetron HCl (Ondansetron Hcl 4 Mg/2 Ml Vial) 4 mg IVPUSH Q8H PRN PRN Reason: Nausea Oxycodone HCl (Oxycodone Hcl Immed Release 5 Mg Tablet) 5 mg PO Q6H PRN PRN Reason: Pain, Severe (Pain Scale 7-10) Pharmacy Consult (Consult Rx Perform Med Rec) 1 each MISCELLANE ONCE PRN PRN Reason: Consult order Sodium Chloride (0.9 % Sodium Chloride Flush 3 Ml Syringe) 3 ml IVFLUSH QSHIFT [facility] Last Admin: 01/12/23 14:09 Dose: Not Given Home Medications Medication Instructions Recorded Confirmed Last Taken Type methocarbamol 500 mg tablet 500 mg PO Q6H PRN Muscle Spasm 01/11/23 01/11/23 Unknown History naproxen 500 mg tablet 500 mg PO BID PRN Pain 01/11/23 01/11/23 Unknown History Exam Exam Date and Time: January 12, 2023 1649 Height,Weight and Vital Signs: Height 5 ft 2 in Weight 95.254 kg Last Vital Signs Temp 97.1 F 01/12/23 16:05 Pulse 73 01/12/23 16:05 Resp 16 01/12/23 16:05 BP 129/82 01/12/23 16:05 Pulse Ox 99 01/12/23 16:05 O2 Del Method Room Air 01/12/23 16:05 Pertinent Lab Results Pertinent Lab Results: Laboratory Tests 01/11/23 01/11/23 01/11/23 10:40 10:40 11:03 WBC 7.3 RBC 4.56 Hgb 12.4 Hct 38.2 MCV 83.8 MCH 27.2 MCHC 32.5 RDW 13.9 Plt Count 376 MPV 8.5 L Immature Gran % (Auto) 0.4 Neut % (Auto) 73.3 H Lymph % (Auto) 17.4 L [place] % (Auto) 6.6 Eos % (Auto) 1.9 Baso % (Auto) 0.4 Lymph # (Auto) 1.3 [place] # (Auto) 0.5 Eos # (Auto) 0.1 Baso # (Auto) 0.0 Abs Immat Gran (auto) 0.03 Absolute Neuts (auto) 5.3 Absolute Nucleated RBC 0.000 Nucleated RBC % (auto) 0.0 Sodium 135 Potassium 5.0 Chloride 103 Carbon Dioxide 26 Anion Gap 11 L BUN 14 Creatinine 1.19 Estim Creat Clear Calc 70.3 Estimated GFR 51 Random Glucose 107 Calcium 9.5 Total Bilirubin 0.3 Direct Bilirubin 0.1 AST 12 ALT 13 Alkaline Phosphatase 48 Total Protein 7.8 Albumin 4.2 Lipase 30 Urine Color Yellow Urine Appearance Clear Urine pH 5.5 Ur Specific [place] 1.010 Urine Protein Negative Urine Glucose (UA) Negative Urine Ketones Negative Urine Blood Moderate (2+) H Urine Nitrite Negative Ur Leukocyte Esterase Trace H Urine RBC 11-20 H Urine WBC 0-5 Ur Squamous Epith Cells 3-5 Urine Bacteria None Seen Hyaline Casts 3-5 Urine Test 01/11/23 11:03 WBC RBC Hgb Hct MCV MCH MCHC RDW Plt Count MPV Immature Gran % (Auto) Neut % (Auto) Lymph % (Auto) [place] % (Auto) Eos % (Auto) Baso % (Auto) Lymph # (Auto) [place] # (Auto) Eos # (Auto) Baso # (Auto) Abs Immat Gran (auto) Absolute Neuts (auto) Absolute Nucleated RBC Nucleated RBC % (auto) Sodium Potassium Chloride Carbon Dioxide Anion Gap BUN Creatinine Estim Creat Clear Calc Estimated GFR Random Glucose Calcium Total Bilirubin Direct Bilirubin AST ALT Alkaline Phosphatase Total Protein Albumin Lipase Urine Color Urine Appearance Urine pH Ur Specific [place] Urine Protein Urine Glucose (UA) Urine Ketones Urine Blood Urine Nitrite Ur Leukocyte Esterase Urine RBC Urine WBC Ur Squamous Epith Cells Urine Bacteria Hyaline Casts Urine Test NEGATIVE Airway Mallampati Class: IV Neck ROM: Full Adult Head Mouth w/Numbe Teeth: 1. Chipped Loose/Missing/Broken Teeth: Yes (upper left tooth chipped ) Assessment and Plan Assessment Anesthesia Assessment: Anesthesia Plan Discussed and Chart Reviewed Final Anesthetic Review Family History of Problems with Anesthesia: No History of Problems with Anesthesia: No NPO: Yes ASA Class: II and Emergency Final Preanesthetic Review: Meds/Allgs Chart Reviewed, Consent Obtained/Reviewed and Anes Risks/Benef Reviewed Patient Risk: Intermediate Procedure Risk: Intermediate Anesthetic Plan Anesthetic Plan: GA and Agree w/ Assess. and Plan Disposition: Standard PACU and Inp. Admit - Standard Bed
--- NOTE | 2023-01-12 17:16 | MHC.SHP ---
Pre-Procedural Eval Section A Date of Service: 01/12/23 The patient is an INPATIENT: No Changes since office visit: No Cold of Flu in the past 2 weeks, No New Medical Problems, No Changes in Medication and No Patient answered all questions The History & Physical has been completed within 30 days and I have reviewed it.: Yes Section B Chief Complaint: Nephrolithiasis Allergies: Allergies Allergy/AdvReac Type Severity Reaction Status Date / Time vancomycin [VANCOMYCIN] Allergy Intermediate ITCHING/REDNESS Unverified 04/02/20 16:05 (RED KIRSTIN SYNDROME), itching Plan Diagnosis/Plan: Unchanged (cystoscopy, left retrograde, ureteroscopy, laser and stent) I have reviewed the history and physical and performed a pertinent physical examination on my patient. No changes have occurred unless specified. Time Spent With Patient Time: Total time managing care of this patient today ____ minutes.
--- NOTE | 2023-01-12 17:56 | P.OP_ITS ---
Operative Note Operative Note Date of Service: 01/12/23 Narrative: PreOperative Diagnosis: left distal ureteric stone Post Operative Diagnosis: left distal ureteric stone Procedure: - cystoscopy, left retrograde - left dilatation of ureteric orifice under fluoroscopy - left ureteroscopy, laser lithotripsy, stone basketing - left stent placement Surgeon: Dr Carlos Pereira Anesthesia: General Indications for procedure: left distal ureteric stone with hydroureteronephrosis inability to pass Procedure: After informed consent was verified the patient was brought to the operating room and placed in a supine position. Anesthesia was administered per protocol. The patient was placed in a modified dorsal lithotomy position and prepped and draped in a sterile fashion. Safety pause time-out and side of surgery were confirmed. Images were available for review. Antibiotic administration confirmed. A 22 Macedonian cystoscope was inserted per urethra. The urethra was without abnormality. The bladder was normal in its entirety. Both ureteric orifices were seen in normal position slight irritation around left ureter. The left ureteric orifice was cannulated and a retrograde examination was performed. filling defect at distal left ureteric orifice . A Sensor guidewire was placed up to the level of the renal pelvis under fluoroscopy. The rigid cystoscope was removed. A [place] dilator was placed over the Sensor guidewire and used to dilate the ureteric orifice under fluoroscopy. The dilator was removed. The semi rigid ureteral scope was placed alongside the Sensor guidewire. stone encountered. Using a 365 micro holmium laser fiber the stone was broken into small pieces using a combination of hammer and dusting techiques. Stone fragments were removed from the ureter using a sure catch basket. Once the fragments were removed a decision was made to place a ureteric stent. Based on the height of the patient a 6 Fr x 24 stent was used. The string was removed from the stent prior to placement A 6 Macedonian by 24 cm double-J stent was placed into the renal pelvis and bladder under a combination of fluoroscopy and direct visualization. The symphisis pubis was used as a radiographic marker to release the stent and good coil was seen within the bladder confirming position The bladder was emptied. The patient tolerated the procedure well and was extubated in the operating room. They were transferred in stable condition to the recovery area. Pathology: stones Drains: Double J stent as described above
[2023-01-12] MEDS: Phenazopyridine HCL 100 MG TABLET PO (18:22)
[2023-01-12] MEDS: Acetaminophen 1,000 MG/100 ML PIGGYBACK 400 MG IV (18:23)
[2023-01-20 22:19] LABS: Stone Source KIDNEY STONE
--- NOTE | 2023-04-20 15:56 | PM.DS ---
DS: Providers Provider Date of Service: 01/12/23 Date of admission: 01/11/23 16:50 Primary care physician: Chavez Estrella MD DS: Diagnosis Discharge Diagnosis (1) Nephrolithiasis: Status: Acute (2) Hydroureteronephrosis: Status: Resolved DS: Summary Hospital Course Hospital Course: Failed trial of stone passage in hospital Underwent left-sided ureteroscopy with laser lithotripsy and stent placement Time spent discussing smoking cessation with patient: 3 to 10 minutes Status at Discharge Functional status at discharge: independent ambulation Overall status at discharge: patient is back to baseline Time Spent with Patient Time attestation: Total time managing care of this patient today ____ minutes. Discharge coordination time: Less than 30 minutes Quality: Safe Use of Opioids Does Pt have an Active Cancer Diagnosis on the Problem List?: No Quality: Stroke Does the patient have a stroke diagnosis?: No Physical Exam Vital Signs: Vital Signs: Last Vital Signs Temp 98.1 F 01/12/23 18:36 Pulse 72 01/12/23 18:36 Resp 16 01/12/23 18:36 BP 132/84 01/12/23 18:36 Pulse Ox 99 01/12/23 18:36 O2 Del Method Room Air 01/12/23 18:36 O2 Flow Rate 3 01/12/23 18:11 BMI result Body Mass Index 38.4 DS: Data Data Completed and Pending Completed studies during hospitalization [Text1]: Pending at discharge 01/12/23 17:53 Surgical [PTH] Routine Procedures Dilation of Left Ureter with Intraluminal Device, Via Natural or Artificial Opening Endoscopic (01/11/23) Extirpation of Matter from Left Ureter, Via Natural or Artificial Opening Endoscopic (01/11/23) Fluoroscopy of Left Kidney, Ureter and Bladder using Low Osmolar Contrast (01/11/23) Imaging CT scan - pelvis: Radiologist's impression: ITS Impressions Abdomen/Pelvis CT 01/11/23 11:36 IMPRESSION: 6 mm calculus impacted in the distal left ureter with moderate left hydroureteronephrosis. Bilateral nephrolithiasis. 3 mm right lower lobe pulmonary nodule. This has been stable since 2013. Discharge Plan Discharge Anticipated Discharge Date/Time: 01/12/23 18:59 Patient Disposition: Home, Self-Care Discharge Diagnosis: distal ureteric stone Referrals: Carlos Pereira MD [Physician] - 1 Week Chavze Tinajero MD [Primary Care Provider] - None Discharge Medications: New tamsulosin 0.4 mg capsule 0.4 mg PO BEDTIME 14 Days Qty: 14 0RF phenazopyridine [Pyridium] 100 mg tablet 100 mg PO TID PRN (Reason: Spasm) 4 Days Qty: 12 0RF Continued methocarbamol 500 mg tablet 500 mg PO Q6H PRN (Reason: Muscle Spasm) Discharge Orders: Discharge Order (Routine); Ordered 01/12/23 Ordered By: Carlos Pereira Diet: Advance to usual diet Activity on Discharge: As tolerated Stand Alone Forms: Patient Portal Discharge page Print Language: Nepali Care Plan Goals: [facility] Concerns: jose francisco Plan of Treatment: stones Assessment: stones Patient Instructions: Ureteroscopy (DC) Discharge Date/Time: 01/12/23 19:52
== END 2023-01-12 19:52 | disposition home or self-care (01) | DRG 446 ==
LOC: HO.ED 13:37 → HO.EDOVER 16:59 → HO.S3 17:22
PROVIDERS: Physician Assistant Medical; Admitting Provider Urology; Emergency Provider Emergency Medicine; PCP Internal Medicine; Visit Provider Urology
PROC: 0TC78ZZ Extirpation of Matter from Left Ureter, Via Natural or Artificial Opening Endoscopic (ICD-10-PCS; principal; 2023-01-12 16:30)
DX: N13.2 Hydronephrosis with renal and ureteral calculous obstruction (principal); Z87.442 Personal history of urinary calculi; Z79.899 Other long term (current) drug therapy
CPT/HCPCS: 36415; 74176; 80048; 80076; 81001; 81025; 82365; 83690; 85025; 88300; 99285; C1758; C1769; C2617; J0131; J1885; J1956; J2405; J3010; Q9967

== ENCOUNTER 2023-01-27 09:52 | Outpatient (AMB) | payer OTHER, MEDICAID, SELFPAY ==
--- NOTE | 2023-01-27 10:00 | A.OFFVIS_ITS ---
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 She is a patient of Dr. Estrella. She seen for urologic conditions - nephrolithiasis Here for stent removal Low vitamin-D - supplementation recommended Nephrolithiasis Recurrent stone former Presentation 01/06 via emergency department Distal left ureteric stone Underwent ureteroscopy Stone intervention - 01/06 left [facility] Imaging - 01/06 CT distal left ureteric stone bilateral punctate stones Stone composition - 01/06 calcium oxalate monohydrate 80% Investigations - 01/06 calcium 9.5, prior low vitamin-D Therapeutic plan - [facility] Social History Household Members: Family Housing: House Do you presently have visiting nurse or other home services: No Alcohol intake: current Alcohol intake frequency: holidays/special occasions only Patient Tobacco Use Status: Never used Tobacco Office Procedures Cystoscopy Consent Discussed risk and benefit or proposed procedure with the patient. Information consent for procedure given to the patient. Discussed technical aspects, risks, benefits and alternatives in full. Addressed all of the patient's questions and concerns regarding the procedure. The patient demonstrated knowledge and understanding. They wish to proceed with this procedure. Preparation The patient was prepped in the usual manner. A conservation planner was present and in the room. Genitalia was prepped with betadine solution in a sterile manner. Lidocaine Jelly 2% was placed into the urethra and 16Fr flexible Olympus cystoscope was inserted into the meatus after adequate lubrication. Procedure A well lubricated 16 Slovak cystoscope was placed No abnormality noted of urethra during placement Indwelling stent seen within bladder emerging from left ureteric orifices The stent was grasped with a 3 prong grasper and removed without difficulty The patient tolerated the procedure well [id number] with stent removal Procedure code (CPT) selection complete Office Meds lidocaine HCl Performing Provider: Carlos Pereira MD Administered by: Rachana Agudelo RN on 01/27/23 10:22 Dose Route Admin Location Lot Number Expiration Date NDC Outsole Scheduler 10 mL intra-urethral nitrofurantoin monohyd/m-cryst 100 mg Performing Provider: Carlos Pereira MD Administered by: Rachana Agudelo RN on 01/27/23 10:22 Dose Route Admin Location Lot Number Expiration Date ND Outsole Scheduler 100 mg PO naproxen Performing Provider: Carlos Pereira MD Administered by: Rachana Agudelo RN on 01/27/23 10:22 Dose Route Admin Location Lot Number Expiration Date NDC Outsole Scheduler 500 mg PO Results AMB Urinalysis, Automated UA Leukoctes 125 Tim/uL Last Edit by Shraddha Amaya [facility] on 01/27/23 10:19 UA Nitrite Negative Last Edit by Shraddha Amaya [facility] on 01/27/23 10:19 UA Urobilinogen 0.2 mg/dL Last Edit by Shraddha Amaya A on 01/27/23 10:1 9 UA Protein 15 mg/dL Last Edit by Shraddha Amaya A on 01/27/23 10:19 UA pH 6.0 Last Edit by Shraddha Amaya [facility] on 01/27/23 10:19 UA Blood 200 [place]/uL Last Edit by Shraddha Amaya [facility] on 01/27/23 10:19 UA Specific [place] 1.015 Last Edit by hSraddha Amaya A on 01/27/23 10: 19 UA Ketone Negative Last Edit by Shraddha Amaya [facility] on 01/27/23 10:19 UA Bilirubin 0 mg/dL Last Edit by Shraddha Amaya [facility] on 01/27/23 10:19 UA Glucose 0 mg/dL Last Edit by Shraddha Amaya A on 01/27/23 10:19 Results Reviewed Results Reviewed: Laboratory Last Values Urine pH (Auto) 6.0 01/27/23 10:03 Specific [place] (Auto) 1.015 01/27/23 10:03 Urine Protein (Auto) 15 mg/dL 01/27/23 10:03 Glucose (UA)(Auto) 0 mg/dL 01/27/23 10:03 Urine Ketones (Auto) Negative 01/27/23 10:03 Urine Blood (Auto) 200 [place]/uL 01/27/23 10:03 Urine Nitrite (Auto) Negative 01/27/23 10:03 Urine Bilirubin (Auto) 0 mg/dL 01/27/23 10:03 Urine Urobilinogen (Auto) 0.2 mg/dL 01/27/23 10:03 Leukocyte Esterase (Auto) 125 Tim/uL 01/27/23 10:03 Assessment & Plan Assessment & Plan (1) Nephrolithiasis: Code(s): N20.0 - Calculus of kidney Plan Lab work [facility] Ultrasound Orders: Orders Calcium Today N20.0 - Calculus of kidney Magnesium Today N20.0 - Calculus of kidney Phosphorus Today N20.0 - Calculus of kidney PTHI Today N20.0 - Calculus of kidney Uric Acid Today N20.0 - Calculus of kidney Vitamin D 25-OH Total Today N20.0 - Calculus of kidney US renal BI 2 Months N20.0 - Calculus of kidney AMB Cystoscopy Today N20.0 - Calculus of kidney AMB Urinalysis Automated Today Z13.9 - Encounter for screening, unspecified Patient Instructions: Imaging studies, laboratory and physical exam results were discussed and reviewed in detail. No major barriers to patient understanding were identified. An opportunity to ask questions regarding the treatment plan was provided. All questions were answered. The patient expressed understanding and agreement with the above treatment plan. The patient is aware they should contact our office by phone for worsening of their current condition or the appearance of new urologic symptoms. Compliance is encouraged with any medications and followup testing that is ordered. It is a privilege to participate in the urologic care of your patient. If you have any questions or concerns regarding treatment for the above conditions, or other urologic issues, please do not hesitate to contact me. The office telephone contact is [phone]. This note is constructed using voice recognition software. While every effort has been made to ensure accuracy speeder tender errors may have been included. Yours sincerely, Dr Carlos Pereira MD, LILL[facility] - Urology Providers of Expert, Compassionate Care for the Genitourinary System Coding Level of Care Code Est Pt Level 3 (75242) Diagnoses Nephrolithiasis N20.0 CPT Codes Cystoscopy - CPT: 85632-[id number] with stent removal ([id number])
== END 2023-01-27 10:52 | disposition home or self-care (01) ==
PROVIDERS: PCP Internal Medicine; Visit Provider Urology
DX: N20.0 Calculus of kidney (principal)
CPT/HCPCS: 52310

== ENCOUNTER → 2023-01-27 09:52 | Outpatient (BNVA) | payer OTHER, MEDICAID, SELFPAY | PROVIDERS: PCP Internal Medicine; Visit Provider Urology | DX: N20.0 Calculus of kidney (principal) | CPT/HCPCS: 52310; 81003 ==

== ENCOUNTER 2023-03-22 15:17 | Outpatient (REF) | payer OTHER, SELFPAY ==
--- NOTE | ~2023-03-22 | US_ITS ---
EXAMINATION: US RETROPERITONEAL LIMITED (RENAL ONLY) CLINICAL INFORMATION: Calculus of kidney. COMPARISON: CT abdomen and pelvis 01/11/2023. Renal ultrasound 07/14/2014 and 12/24/2013. X-ray KUB 12/18/2013. TECHNIQUE: Real-time imaging of the kidneys. FINDINGS: RIGHT KIDNEY: 11.0 x 5.5 x 5.0 cm (SAG x AP x TRV). The kidney is normal in size, contour, and echogenicity. Renal cortical thickness is normal. No calculi or focal parenchymal lesions. No hydronephrosis. There are hyperechoic calyces. LEFT KIDNEY: 10.6 x 5.9 x 5.1 cm (SAG x AP x TRV). The kidney is normal in size, contour, and echogenicity. Renal cortical thickness is normal. No calculi or focal parenchymal lesions. No hydronephrosis. There are hyperechoic calyces. US/US renal BI IMPRESSION: Bilateral hyperechoic calyces, likely early changes of medullary sponge kidney. On recent CT, the patient had bilateral nephrolithiasis.
[2023-03-22 18:59] LABS: Calcium 9.9 mg/dL (8.4-10.2); Magnesium 1.8 mg/dL (1.6-2.6); Phosphorus 2.6 mg/dL (2.7-4.5); Uric Acid 6.7 mg/dL (2.4-5.7)
[2023-03-22 19:07] LABS: Vitamin D 25-OH Total 44.5 ng/mL (>30)
[2023-03-24 15:55] LABS: Calcium (PTHI) 9.3 mg/dL (8.6-10.2); PTHI 61 pg/mL (16-77)
== END 2023-03-22 15:18 | disposition home or self-care (01) ==
LOC: HO.US 15:17
PROVIDERS: PCP Internal Medicine; Visit Provider Urology
DX: N20.0 Calculus of kidney (principal)
CPT/HCPCS: 36415; 76775; 82306; 82310; 83735; 83970; 84100; 84550

== ENCOUNTER 2023-05-18 14:49 | Outpatient (REF) | payer OTHER, MEDICAID, SELFPAY ==
--- NOTE | 2023-05-18 | EMG_ITS ---
Chief complaint: Chronic bilateral hand numbness Reason for referral: Evaluate for Carpal Tunnel Syndrome Referred by: Dr. Chavez Estrella Procedure done: Bilateral upper extremities NCS/EMG Precautions and/or limitations: None The limb temperature was monitored continuously and remained between 32-36 degrees C during the performance of the NCS. Nerve Conduction Studies Anti Sensory Summary Table ?Stim Site NR Onset (ms) Norm Onset (ms) Peak (ms) Norm Peak (ms) O-P Amp (?V) Norm O-P Amp Site1 Site2 Delta-0 (ms) Dist (cm) Dwight (m/s) Norm Dwight (m/s) Left Median Anti Sensory (2nd Digit) Wrist ? 3.3 3.9 <3.6 44.9 >10 Wrist 2nd Digit 3.3 14.0 42 Right Median Anti Sensory (2nd Digit) Wrist ? 2.9 3.8 <3.6 40.8 >10 Wrist 2nd Digit 2.9 14.0 48 Right Radial Anti Sensory (Thumb) Forearm ? 1.5 1.8 <3.1 29.0 Forearm Thumb 1.5 0.0 Left Ulnar Anti Sensory (5th Digit) Wrist ? 2.3 2.9 <3.7 58.2 >15.0 Wrist 5th Digit 2.3 14.0 61 Right Ulnar Anti Sensory (5th Digit) Wrist ? 2.0 2.8 <3.7 46.3 >15.0 Wrist 5th Digit 2.0 14.0 70 Motor Summary Table ?Stim Site NR Onset (ms) Norm Onset (ms) O-P Amp (mV) Norm O-P Amp iAmp (mV) Amp (1st) (%) Site1 Site2 Delta-0 (ms) Dist (cm) Dwight (m/s) Norm Dwight (m/s) Left Median Motor (Abd Poll Brev) Wrist ? 4.6 <3.9 8.8 >4.5 10.1 100.0 Elbow Wrist 3.8 19.0 50 >45 Elbow ? 8.4 8.1 9.3 92.0 Right Median Motor (Abd Poll Brev) Wrist ? 4.5 <3.9 4.5 >4.5 5.4 100.0 Elbow Wrist 3.2 20.5 64 >45 Elbow ? 7.7 4.1 5.1 91.1 Left Ulnar Motor (Abd Dig Minimi) Wrist ? 2.5 <3.0 8.5 >5 10.4 100.0 B Elbow Wrist 2.8 17.0 61 >45 B Elbow ? 5.3 9.4 11.5 110.6 A Elbow B Elbow 1.3 10.0 77 >45 A Elbow ? 6.6 8.7 10.7 102.4 Right Ulnar Motor (Abd Dig Minimi) Wrist ? 2.4 <3.0 8.6 >5 13.0 100.0 B Elbow Wrist 2.9 17.0 59 >45 B Elbow ? 5.3 11.3 16.7 131.4 A Elbow B Elbow 1.2 10.0 83 >45 A Elbow ? 6.5 9.8 14.4 114.0 EMG ?Side Muscle Nerve Root Ins Act Fibs Psw Amp Dur Poly Recrt Int Pat Comment Right 1stDorInt Ulnar C8-T1 Nml Nml Nml Nml Nml 0 Nml Complete Right FlexCarRad Median C6-7 Nml Nml Nml Nml Nml 0 Nml Complete Right Biceps Musculocut C5-6 Nml Nml Nml Nml Nml 0 Nml Complete Right Triceps Radial C6-7-8 Nml Nml Nml Nml Nml 0 Nml Complete Right Deltoid Axillary C5-6 Nml Nml Nml Nml Nml 0 Nml Complete Left 1stDorInt Ulnar C8-T1 Nml Nml Nml Nml Nml 0 Nml Complete Left FlexCarRad Median C6-7 Nml Nml Nml Nml Nml 0 Nml Complete Left Biceps Musculocut C5-6 Nml Nml Nml Nml Nml 0 Nml Complete Left Triceps Radial C6-7-8 Nml Nml Nml Nml Nml 0 Nml Complete Left Deltoid Axillary C5-6 Nml Nml Nml Nml Nml 0 Nml Complete FINDINGS: Bilateral median motor nerves showed prolonged distal latency, normal amplitude and normal conduction velocity. Bilateral median sensory nerves showed prolonged peak latency. All other nerves tested were within normal. Concentric needle EMG was performed in selected muscles of the bilateral upper extremities. Study did not reveal signs of electric abnormalities as shown in the table below. IMPRESSION: 1. This is an abnormal study. 2. There is electrodiagnostic evidence for bilateral moderate-severe median neuropathy at the wrist, consistent with carpal tunnel syndrome. 3. There is no electrodiagnostic evidence for ulnar neuropathy, brachial plexopathy, or cervical radiculopathy. Thank you for your kind referral. Elida Inman MD, LILLIAN Board Certified, [place] Board of [employer] Medicine and Rehabilitation (ABPMR) Board Certified, [place] Board of Electrodiagnostic Medicine (ABEM) CODIN 27828 x 2 MTDD
== END 2023-05-18 14:50 | disposition home or self-care (01) ==
LOC: HO.NEURO 14:49
PROVIDERS: PCP Internal Medicine; Visit Provider Internal Medicine
DX: G56.03 Carpal tunnel syndrome, bilateral upper limbs (principal)
CPT/HCPCS: 95886; 95911

== ENCOUNTER → 2023-05-18 15:01 | Outpatient (BNV) | payer OTHER, MEDICAID, SELFPAY | PROVIDERS: PCP Internal Medicine; Visit Provider Physical Medicine & Rehabilitation | DX: G56.13 Other lesions of median nerve, bilateral upper limbs (principal); G56.03 Carpal tunnel syndrome, bilateral upper limbs | CPT/HCPCS: 95886; 95911 ==

== ENCOUNTER 2023-11-21 14:00 | Outpatient (AMB) | payer OTHER, MEDICAID, SELFPAY ==
--- NOTE | 2023-11-21 14:02 | MHC.OFFVIS ---
Vital Signs 11/21/23 14:05 Height 5 ft 2 in Weight 206 lb BMI 37.7 Intake Visit Reasons: N/P B/L hand CTS EMG done Intake Note: Nedra 38 yr old female presents today for a new patient visit for bilateral hand CTS. States her right is worse and started about 7 years ago. Symptoms are on and off through out the day. No injury, denies use of braces. EMG done. Patient states she is not interested in surgery at the moment but would like to discuss her options. Allergies vancomycin [VANCOMYCIN] Allergy (Intermediate, Verified 01/27/23 10:03) ITCHING/REDNESS (RED KIRSTIN SYNDROME), itching HPI HPI N/P B/L hand CTS EMG done : Details: Nedra is a 38 year old right hand dominant woman who presents for a NCS review of her bilateral hand numbness, R>L. She complains of numbness in the median nerve distribution bilaterally, R>L. She denies any small finger numbness. She says this has been present for ~7 years now, and worsened recently. Symptoms intermittent, but daily. She says even gripping a pencil with her right hand causes her numbness. She says she works for the [employer], and is primarily on a computer or hand writing all day. She says she is not interested in surgery, but would like to discuss her options. 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 Review of Systems Const All systems reviewed & are unremarkable except as noted in HPI and below Physical Exam Vital Signs: BMI result Body Mass Index 37.7 Const General: cooperative, healthy appearing and no acute distress Orientation/consciousness: patient oriented x3 HEENT Head: Yes normocephalic and Yes atraumatic Eyes EOM: EOMs intact bilaterally Resp Effort & Inspection: normal respiratory effort and able to speak in complete sentences Cardio Jugular venous distension: no JVD Skin General skin exam: turgor normal Rashes: no rashes Neuro General: patient oriented x3 Extrem Other: Evaluation of Bilateral Upper Extremity: The patient is alert, oriented, and in no acute distress Neuro: Dense numbness in the median nerve distribution on the right. Normal sensation in the median nerve distribution on the left. Normal sensation in the ulnar nerve distribution bilaterally. No thenar or intrinsic wasting Good APB muscle belly firing and good finger cross Vascular: Cap refill brisk ROM: She can make a fist and extend all her digits No locking or catching Skin: No lacerations or abrasions. General: No Ecchymosis. No Erythema or evidence of infection. Radiographs: IMPRESSION: 1. This is an abnormal study. 2. There is electrodiagnostic evidence for bilateral moderate-severe median neuropathy at the wrist, consistent with carpal tunnel syndrome. 3. There is no electrodiagnostic evidence for ulnar neuropathy, brachial plexopathy, or cervical radiculopathy. Elida Inman MD, LILLIAN 05/18/23 Psych Appearance: grossly normal Affect: normal affect Attitude: cooperative Assessment & Plan Assessment & Plan (1) Carpal tunnel syndrome of right wrist: Code(s): G56.01 - Carpal tunnel syndrome, right upper limb Category: Medical (2) Carpal tunnel syndrome of left wrist: Code(s): G56.02 - Carpal tunnel syndrome, left upper limb Category: Medical Plan Assessment & Plan: 1. Right carpal tunnel syndrome, moderate-severe With dense numbness today in clinic, worse with activity This is her primary complaint today 2. Left carpal tunnel syndrome, moderate-severe Symptoms intermittent, but daily, worse with activity I educated her about this condition I discussed operative and non-operative treatment options The patient would like to proceed with surgery, beginning with the right side The risks and benefits of operative treatment were discussed with the patient and the patient wishes to proceed with surgery. These risks include, but are not limited to risk of damage to blood vessels, nerves, tendons, infection, recurrence, incomplete relief of preoperative symptoms, persistent pain, possible need for further surgery and the risks associated with regional blocks and anesthesia. The plan is to take the patient to the operating room sometime in the next few months for the following procedures: 1. Right carpal tunnel release, under local All of the preoperative paperwork including the consent was reviewed today. All the patient's questions were answered. The patient understands that they will be contacted by our wheel buffer soon to schedule this procedure. She says she is travelling for vacation this summer and will be out of town for most of December & January. She denies Diabetes, blood thinners, asthma, heart, lung, kidney issues Scribed for Kaila Subramanian MD by Giuliano Davis, medical records coder, on 11/21/23 at 2:15 PM, EST. Coding Level of Care Code New Pt Level 4 (05779) Diagnoses Carpal tunnel syndrome of right wrist G56.01 Carpal tunnel syndrome of left wrist G56.02
[2023-11-21 14:05] VITALS: BMI 37.7
== END 2023-11-21 14:29 | disposition home or self-care (01) ==
PROVIDERS: PCP Internal Medicine; Visit Provider Orthopaedic Surgery
DX: G56.03 Carpal tunnel syndrome, bilateral upper limbs (principal)
CPT/HCPCS: 99204

== ENCOUNTER → 2023-11-21 14:00 | Outpatient (BNVA) | payer OTHER, MEDICAID, SELFPAY | PROVIDERS: PCP Internal Medicine; Visit Provider Orthopaedic Surgery ==

== ENCOUNTER 2024-03-14 09:28 | Day surgery (SDC) | payer OTHER, SELFPAY ==
[2024-03-14 10:03] VITALS: BMI 36.6
[2024-03-14 10:08] VITALS: BP 138/64; PULSE 111; RESP 16; TEMP 36.5; O2SAT 99
--- NOTE | 2024-03-14 10:33 | MHC.SHP ---
Pre-Procedural Eval Section A - 24 Hr Update-Section A only Date of Service: 03/14/24 The patient is an INPATIENT: No Changes since office visit: No Cold of Flu in the past 2 weeks, No New Medical Problems, No Changes in Medication and No Patient answered all questions The patient has been examined within 24 hours of the surgical procedure. The History & Physical has been completed within 30 days and I have reviewed it.: Yes Section B - Complete if H&P > 30 days Chief Complaint: Carpal tunnel syndrome, right upper limb Allergies: Allergies Allergy/AdvReac Type Severity Reaction Status Date / Time vancomycin [VANCOMYCIN] Allergy Intermediate ITCHING/REDNESS Verified 01/27/23 10:03 (RED KIRSTIN SYNDROME), itching Exam Exam Comment: Right carpal tunnel syndrome Plan Diagnosis/Plan: Unchanged I have reviewed the history and physical and performed a pertinent physical examination on my patient. No changes have occurred unless specified. Time Spent With Patient Time: Total time managing care of this patient today ____ minutes.
--- NOTE | 2024-03-14 10:35 | W.PM.OPN ---
Operative Note Operative Note Date of Service: 03/14/24 Narrative: Preop diagnosis: 1. Right Carpal tunnel syndrome Postop diagnosis: same Procedure: 1. Right Carpal tunnel release Surgeon: Kaila Subramanian MD Evaporator Helper: Chris MUÑOZ Anesthesia: local block using 1% lidocaine with epinephrine Findings: Thickened transverse carpal ligament. EBL: Less than 5 mL Specimens: None Complications: None Disposition: Brought to recovery room in stable condition Plan: Follow-up for 10-14 days for wound check and suture removal Indications: The patient is 39 years old, with right carpal tunnel syndrome that has been unresponsive to nonoperative management. The risks and benefits of operative treatment including but not limited to risk of damage to blood vessels, nerves, tendons, infection, persistent pain, persistent symptoms, or possible need for additional surgery were discussed with the patient and the patient wishes to proceed with surgery. Procedure: Once consent was obtained a local block was performed using a combination of 1% lidocaine with epinephrine. The patient was then brought back to the operating suite and placed on the operative table in supine position. The right upper extremity was prepped and draped in a standard surgical fashion. Once assured that we had a good block, a 2.0 cm longitudinal incision was made centered over the carpal tunnel. The incision was made through the skin to the subcutaneous tissues using a #15 blade. Dissection was made down to the level of the transverse carpal ligament with care being taken to protect the palmar cutaneous nerve. Once the transverse carpal ligament was clearly visualized, a longitudinal incision was made in the transverse carpal ligament 1st using a #15 blade, then using tenotomy scissors under direct visualization. Care was taken to look for and protect the motor branch of the median nerve when seen in this area. Once satisfied with our carpal tunnel release the wound was copiously irrigated with normal saline and hemostasis was obtained with a brief period of local pressure. The skin edges were reapproximated with some 5.0 nylon suture material and a sterile dressing was applied. The patient appears to have tolerated the procedure well and with no complications. All digits were well vascularized at the conclusion of the case.
[2024-03-14 14:01] VITALS: BP 141/92; PULSE 81; RESP 18; O2SAT 100
== END 2024-03-14 14:02 | disposition home or self-care (01) ==
PROVIDERS: PCP Internal Medicine; Visit Provider Orthopaedic Surgery
PROC: (CPT 64721; principal; 2024-03-14 11:50)
DX: G56.01 Carpal tunnel syndrome, right upper limb (principal); R20.0 Anesthesia of skin; Z88.1 Allergy status to other antibiotic agents
CPT/HCPCS: 64721; J0171

== ENCOUNTER → 2024-03-14 09:28 | Outpatient (BNV) | payer OTHER, SELFPAY | PROVIDERS: PCP Internal Medicine; Visit Provider Orthopaedic Surgery | DX: G56.01 Carpal tunnel syndrome, right upper limb (principal) | CPT/HCPCS: 64721 ==

== ENCOUNTER 2024-03-27 12:13 | Outpatient (AMB) | payer OTHER, SELFPAY ==
[2024-03-27 12:55] VITALS: BMI 36.6
--- NOTE | 2024-03-27 12:55 | MHC.OFFVIS ---
Vital Signs 03/27/24 12:55 Height 5 ft 2 in Weight 200 lb BMI 36.6 Intake Visit Reasons: PO RT CTR 03/14/24 AR Intake Note: Nedra is a 39 year old right hand dominant female who presents today post operatively s/p right carpal tunnel release done 03/14/[address] Subramanian. Patient reports pain she is doing well, she has redness at incision area and numbness in her palm. Sutures removed in office today and steri strips applied. Allergies vancomycin [VANCOMYCIN] Allergy (Intermediate, Verified 03/27/24 12:56) ITCHING/REDNESS (RED KIRSTIN SYNDROME), itching HPI HPI PO RT CTR 03/14/24 AR: Details: The patient is a 39-year-old woman who is status post a right carpal tunnel release with sc on 03/14/2024. She says that she is doing well and has had good resolution of her symptoms. She says she no longer has numbness and tingling and no longer has nighttime symptoms. She would like to wait for a while before considering a left carpal tunnel release [facility], [facility] Medical History (Updated 03/14/24 @ 10:04 by Eloisa Benjamin RN) Arrhythmia Kidney stones Surgical History (Updated 03/14/24 @ 10:03 by Eloisa Benjamin RN) History of tonsillectomy H/O lithotripsy History of surgery Hx of cholecystectomy Social History (Updated 11/21/23 @ 14:07 by SHELLEY Ramirez) Household Members: Family Housing: House Do you presently have visiting nurse or other home services: No Alcohol intake: current Alcohol intake frequency: holidays/special occasions only Patient Tobacco Use Status: Never used Tobacco Current occupational status: employed 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 Her surgical incision is healing well with no erythema drainage or evidence of infection. She has normal sensation to all digits today in clinic. She can make a fist and extend all of her digits. Good APB muscle belly firing Assessment & Plan Assessment & Plan (1) Carpal tunnel syndrome of right wrist: Code(s): G56.01 - Carpal tunnel syndrome, right upper limb Category: Medical (2) Carpal tunnel syndrome of left wrist: Code(s): G56.02 - Carpal tunnel syndrome, left upper limb Category: Medical Plan Assessment & Plan: 1. Right carpal tunnel syndrome status post carpal tunnel release Date of surgery 02/23/2024 Pre clinic With dense numbness Now with normal sensation and good resolution of symptoms I educated the patient about the postoperative course She appears to be doing very well postoperatively. Sutures were removed and Steri-Strips applied. We talked about her left carpal tunnel syndrome, she would like to wait a few months before considering further surgery. She will follow up p.r.n. 2. Left carpal tunnel syndrome, moderate-severe Symptoms intermittent, but daily, worse with activity Coding Level of Care Code Global (49983) Diagnoses Carpal tunnel syndrome of right wrist G56.01 Carpal tunnel syndrome of left wrist G56.02
== END 2024-03-27 13:03 | disposition home or self-care (01) ==
PROVIDERS: PCP Internal Medicine; Visit Provider Orthopaedic Surgery
DX: G56.03 Carpal tunnel syndrome, bilateral upper limbs (principal)
CPT/HCPCS: 99024

== ENCOUNTER → 2024-03-27 12:13 | Outpatient (BNVA) | payer OTHER, MEDICAID, SELFPAY | PROVIDERS: PCP Internal Medicine; Visit Provider Orthopaedic Surgery ==

== ENCOUNTER 2024-06-12 14:09 | Outpatient (REF) | payer OTHER, SELFPAY ==
--- NOTE | ~2024-06-12 | US_ITS ---
EXAMINATION: US RETROPERITONEAL LIMITED (RENAL ONLY) CLINICAL INFORMATION: Renal calculus. COMPARISON: Renal ultrasound on 03/22/2023 TECHNIQUE: Real-time imaging of the kidneys. FINDINGS: RIGHT KIDNEY: 11.6 x 5.2 x 4.5 cm (SAG x AP x TRV). The kidney is normal in size, contour, and echogenicity. Renal cortical thickness is normal. No hydronephrosis. There is increased echogenicity of the renal medulla. There are 2 nonobstructing 0.3 cm calculi. LEFT KIDNEY: 11.1 x 5.5 x 4.4 cm (SAG x AP x TRV). The kidney is normal in size, contour, and echogenicity. Renal cortical thickness is normal. No hydronephrosis. There is increased echogenicity of the renal medulla. There are multiple nonobstructing calculi measuring 0.2-0.4 cm. US/US renal BI IMPRESSION: 1. Bilateral medullary nephrocalcinosis. 2. Bilateral nonobstructing renal calculi. Electronically signed by: Mily Jimenez MD 06/13/2024 10:52 AM MAI
== END 2024-06-12 14:10 | disposition home or self-care (01) ==
LOC: HO.US 14:09
PROVIDERS: PCP Internal Medicine; Visit Provider Nurse Practitioner Family
DX: N20.0 Calculus of kidney (principal)
CPT/HCPCS: 76775

== ENCOUNTER 2024-08-08 14:41 | Outpatient (REF) | payer OTHER, SELFPAY | END 2024-08-08 14:42 | disposition home or self-care (01) | LOC: HO.CHCLNP 14:41 | PROVIDERS: Visit Provider Internal Medicine | DX: M54.50 Low back pain, unspecified (principal) | CPT/HCPCS: 87086 ==

== ENCOUNTER 2024-08-10 09:38 | Outpatient (REF) | payer OTHER, SELFPAY ==
--- NOTE | ~2024-08-10 | XR_ITS ---
EXAMINATION: XR LUMBAR SPINE 2-3 VIEWS HISTORY: Low back pain COMPARISON: Comparison is made with the prior examination dated 09/13/2021. FINDINGS: AP, lateral, and coned down views of the lumbar spine are submitted. Osseous mineralization is normal. Five nonrib-bearing lumbar vertebral bodies are identified, maintaining normal height and alignment without evidence of fracture or spondylolisthesis. There is mild degenerative change at T12-L1 with disc space narrowing and anterior osteophyte formation. The lumbar intervertebral disc spaces are preserved. Again seen are tiny Schmorl's nodes at multiple levels. The posterior elements are intact. There is sclerosis of the left SI joint. There is an IUD in the midline of the pelvis. XR/XR lumbar spine 2-3V IMPRESSION: No interval degenerative changes. Electronically signed by: Faustino Price MD 08/12/2024 08:58 AM EST
--- OUTSIDE RECORDS SUMMARY | 2024-08-10 09:40 | XMS_ITS | Encounter Summary ---
Author Organization [employer] Address [address] [place] [address] Care Team Providers Care Physician Underwriter Name Role Phone Chavez Tinajero MD Primary Care Prov ider Reason for Visit * Reason Onset Date Comments Nurse Triage 08/06/2024 Encounter Details Date Type Department Care Team ([facility] st Contact Info) Description 08/06/2024 Telephone [facility] MEDICINE [address] [place] [phone] Chavez Tinajero MD [address] [place] [address] Nurse Triage Social History Tobacco Use Types Packs/Day Years Used Date Smoking Tobacco: Never Passive Smoke Exposure: Never Smokeless Tobacco: Never Alcohol Use Standard Drinks/Week Comments Never 0 (1 standard drink = 0.6 oz pur e alcohol) Depression Answer Date Recorded Patient Health Questionnaire-9 Score 0 10/03/2022 Housing Stability Answer Date Recorded What is your housing situation today? I have katheryn fisher 05/02/[address] you li ve. Do you have problems with any of the following? None of the above 05/02/2023 Food Insecurity Answer Date Recorded Within the past 12 months, y ou worried that your food would run out before you got money to buy more: Never True 05/02/2023 Within the past 12 months,th e food you bought just didn't last and you didn't have enough money to get more: Never True Transportation Answer Date Recorded In the past 12 months, has l ack of transportation kept you from medical appts, meetings, work or from getting things needed for daily living? No 05/02/2023 Utilities Answer Date Recorded In the past 12 months, has t he electric, gas, oil or water company threatened to shut off services in your home? No 05/02/2023 Depression Answer Date Recorded Patient Health Questionnaire-2 Score 0 10/03/2022 Comments Unknown Sex and Gender Information Value Date Recorded Sex Assigned at Female 05/16/2022 10:19 AM EDT Legal Sex Female 10:19 AM EDT Gender Identity Female 05/16/2022 10:19 AM EDT Sexual Orientation Straight 05/16/2022 10 :19 AM EDT documented as of this encounter Miscellaneous Notes * Telephone Encounter - Dilma Wade RN - 08/06/2024 4:04 PM EST called pt to triage, spoke to pt. pt states 1-2 months duration of left low back and hip pain. pt denies known injury, inability to stand or walk, fevers, or other associated symptoms. given appt with [facility] provider at 11:15 for exam. advised home care: rest, ice, heat, elevate, OTC pain reliever as needed, and call back if worsening or new concerns. pt understands and agrees with plan. insurance verified. Protocol Used: Back Pain (Adult) Protocol-Based Disposition: See in Office or Video Visit within 3 Days Video visit offer not recorded Positive Triage Questions: * Moderate back pain (e.g., interferes with normal activities) and present > 3 days * Pain radiates into the thigh or further down the leg * Patient wants to be seen * All higher-acuity triage questions were negative Care Advice Discussed: * Reassurance and Education - Back Pain * Cold or Heat * Sleep * Continue Activity * Pain Medicines * Reasons To Call Back - Fever occurs - Numbness or weakness occurs - Loss of control of your bladder or bowel - Severe pain not better after taking pain medicines - Pain begins to shoot into the leg - Pain lasts over 2 weeks - Pain becomes worse - You become worse * Telephone Encounter - Glenny Lewis - 08/06/2024 1:25 PM EST Symptoms: Back Pain - Not From Injury, Hip Pain - Not From Injury, Abdominal Pain - Female - Not Outcome: Schedule an urgent appointment (within 1 hour) or talk to a nurse or provider soon Reason: Weakness of the leg The caller accepted this outcome. documented in this encounter Plan of Treatment Not on file documented as of this encounter Visit Diagnoses Not on filedocumented in this encounter Additional Health Concerns Assessment Noted Time PHQ-9 Depression Total Score: 0 10/04/19 23 3:51 PM EDT documented as of this encounter Care Teams Physician Underwriter Relationship Specialty Start Date End Date Chavez Tinajero MD [address] [place] [id number] PCP - General Internal Medicine 12/15/19 documented as of this encounter
--- OUTSIDE RECORDS SUMMARY | 2024-08-10 09:40 | XMS_ITS | Encounter Summary ---
Author Organization [employer] Address [address] [facility] [address], [place] [address] Care Team Providers Care Patient Care Coordinator Name Role Phone Chavez Tinajero MD Primary Care Prov ider Encounter Details Date Type Department Care Team ([facility] st Contact Info) Description 09/09/2022 Telephone [facility] MED & PEDS [address] [place], [place] [phone] Dilma Wade, CRISTOFER [address] [place] [address] Social History Tobacco Use Types Packs/Day Years Used Date Smoking Tobacco: Never Passive Smoke Exposure: Never Smokeless Tobacco: Never Alcohol Use Standard Drinks/Week Comments Never 0 (1 standard drink = 0.6 oz pur e alcohol) Comments Unknown Sex and Gender Information Value Date Recorded Sex Assigned at Female 05/16/2022 10:19 AM EDT Legal Sex Female 10:19 AM EDT Gender Identity Female 05/16/2022 10:19 AM EDT Sexual Orientation Straight 05/16/2022 10 :19 AM EDT COVID-19 Exposure Response Date Recorded In the last 10 days, have yo u been in contact with someone who was confirmed or suspected to have Coronavirus/COVID-19? No / Unsure 09/07/2022 3:44 PM EST documented as of this encounter Plan of Treatment Not on file documented as of this encounter Visit Diagnoses Not on filedocumented in this encounter Care Teams Patient Care Coordinator Relationship Specialty Start Date End Date Chavez Tinajero MD [address] [place], [place] [phone] PCP - General Internal Medicine 12/15/19 documented as of this encounter
--- OUTSIDE RECORDS SUMMARY | 2024-08-10 09:40 | XMS_ITS | Encounter Summary ---
Author Organization [employer] Address [address] [place] [address] [address] [address] Care Team Providers Care Manager Rental Name Role Phone Chavez Tinajero MD Primary Care Prov ider Reason for Referral * Consultation (Routine) - Closed Specialty Diagnoses / Procedures Referred By Contac t Referred To Contact Physical Therapy Diagnoses Acute left-sided low back pain without sciatica Graciela German MD [address] [place] [address] Phone: tel: fax: Physical Therapy, [facility] [address] [place] [address] Phone: tel: fax: Referral ID Status Reason Start Date Expiration Date V isits Requested Visits Authorized [id number] Closed Specialty Services Required 08/08/2024 08/08/2025 1 1 Reason for Visit * Reason Comments Back Pain Encounter Details Date Type Department Care Team ([facility] st Contact Info) Description 08/08/2024 11:15 AM EST Office Visit [facility] [address] [place] [address] Graciela German MD [address] [place] [address] Acute left-sided low back pain without sciatica (Primary Dx); Foul smelling urine Social History Tobacco Use Types Packs/Day Years Used Date Smoking Tobacco: Never Passive Smoke Exposure: Never Smokeless Tobacco: Never Alcohol Use Standard Drinks/Week Comments Never 0 (1 standard drink = 0.6 oz pur e alcohol) Depression Answer Date Recorded Patient Health Questionnaire-9 Score 3 08/08/2024 Patient Health Questionnaire-9 Score 3 08/08/2024 Last PHQ-9: Questionnaire Data Not on file 0 08/08/2024 Housing Stability Answer Date Recorded What is [...] Answer Date Recorded Patient Health Questionnaire-2 Score 2 08/08/2024 Comments Unknown Sex and Gender Information Value Date Recorded Sex Assigned at Female 05/16/2022 10:19 AM EDT Legal Sex Female 10:19 AM EDT Gender Identity Female 05/16/2022 10:19 AM EDT Sexual Orientation Straight 05/16/2022 10 :19 AM EDT documented as of this encounter Last Filed Vital Signs Vital Sign Reading Time Taken Comments Blood Pressure 115/70 08/08/2024 11:18 AM EST Pulse 82 08/08/2024 11:18 AM EST Temperature 36.3 ??C (97.4 ??F) 08/08/2024 11:[address] Respiratory Rate 20 08/08/2024 11:18 AM EST Oxygen Saturation 98% 08/08/2024 11:18 AM EST Inhaled Oxygen Concentration - - Weight 95.4 kg (210 lb 6.4 oz) 08/08/2024 11:18 AM EST Height 160 cm (5' 3 ) 08/08/2024 11:18 AM EST Body Mass Index 37.27 08/08/2024 11:18 AM EST documented in this encounter Progress Notes * Graciela German MD - 08/08/2024 11:15 AM EST Subjective Patient ID: Nedra Flores is a 39 y.o. female who presents for Back Pain. Back Pain Here for the complaint of back pain. It started about 3 weeks ago constant exacerbated by standing or walking and changing position in general. No fever/saddle anesthesia/urinary retention. Also complaining of foul-smelling urine that started 3 weeks ago at about the same time as the low back pain. Patient Active Problem List Diagnosis Abnormal uterine bleeding (AUB) History of kidney stones Bilateral carpal tunnel syndrome Sore throat and laryngitis COVID-19 Neck pain Current Outpatient Medications on File Prior to Visit Medication Sig Dispense Refill acetaminophen (Tylenol) 500 MG tablet Take 2 tablets by mouth in the morning and 2 tablets at noon and 2 tablets in the evening and 2 tablets before bedtime. copper (Paragard) IUD cyclobenzaprine (Flexeril) 10 MG tablet Take 1 tablet (10 mg) by mouth 3 times daily for 10 days. 30 tablet 2 omeprazole (PriLOSEC) [address] capsule take 1 capsule (20MG) by oral route every day before a meal No current facility-administered medications on file prior to visit. No Known Allergies Review of Systems Constitutional: Negative for appetite change, chills and diaphoresis. Eyes: Negative for pain, redness and itching. Respiratory: Negative for cough, choking and shortness of breath. Genitourinary: Foul-smelling urine Musculoskeletal: Positive for back pain. Objective Physical Exam Constitutional: General: She is not in acute distress. Appearance: Normal appearance. She is obese. She is not ill-appearing, toxic- appearing or diaphoretic. Cardiovascular: Rate and Rhythm: Normal rate. Pulmonary: Effort: Pulmonary effort is normal. Abdominal: Palpations: Abdomen is soft. Musculoskeletal: Lumbar back: Tenderness present. Negative right straight leg raise test and negative left straight leg raise test. Neurological: Mental Status: She is alert. Assessment/Plan Diagnoses and all orders for this visit: Acute left-sided low back pain without sciatica Comments: Patient declines an injection of Toradol Most likely had nonspecific low back pain Continue with the stretching exercises and heat therapy pending the physical therapy sessions. Orders: - ketorolac (Toradol) injection 30 mg - XR Lumbar Spine 2-3 Views; Future - Referral to Physical Therapy; Future - celecoxib (CeleBREX) 200 MG capsule; Take 1 capsule (200 mg) by mouth 2 times daily. - Culture, Urine, Routine; Future Foul smelling urine - POCT Urinalysis Urine culture ordered Has high specific gravity on urinalysis Advised to increase fluid intake for now She will be called with the results of the urine culture. documented in this encounter Plan of Treatment Scheduled Orders Name Type Priority Associated Diagnoses Orde r Schedule XR Lumbar Spine 2-3 Views Imaging Routine Acute left-sided low back pain without sciatica Expected: 08/08/2024, Expires: 08/08/2025 Scheduled Referrals Name Type Priority Associated Diagnoses Orde r Schedule Referral to Physical Therapy Outpatient Referral Routine Acute left-sided low back pain without sciatica Expected: 08/08/2024 (Approximate), Expires: 08/08/2025 documented as of this encounter Procedures Procedure Name Priority Date/Time Associated Diagnosis Comments POCT URINALYSIS DIPSTICK Routine 08/08/2024 11:48 AM EST Foul smelling urine CULTURE, URINE, ROUTINE Routine 08/08/2024 12:00 AM EST Acute left-sided low back pain without sciatica documented in this encounter Results * (ABNORMAL) POCT Urinalysis (08/08/2024 11:48 AM EST) Color, UA Yellow Clarity, UA Clear Glucose, UA Negative Bilirubin, UA Negative Ketones, UA Positive Comment:trace Spec Grav, UA 1.030 Blood, UA Positive(A) Negative, None Detected Comment:trace-intact pH, UA 5.5 Protein, UA Negative Urobilinogen, UA 0.2 Leukocytes, UA Negative Negative, Rare, Trace Nitrite, UA Negative Negative, None Detected Appearance, UA clear QC Media Lot # [id number] Lot# Expiration Date [id number] Urine 08/08/2024 11:4 8 AM EST Graciela German MD POINT OF CARE TEST ENTER/ED IT ORDERABLES Final Result * Culture, Urine, Routine (08/08/2024 12:00 AM EST) Urine Urine specimen obtained by clean catch procedure / Unknown 08/08/2024 08/08/2024 Comment:[facility]ACC Narrative [facility] - 08/10/2024 8:58 AM EST Urine Culture No growth. Specimen Source: Urine clean catch Graciela German MD LAB MICROBIOLOGY - GENERAL ORDERABLES Final Result Performing Organization Address City/State/[facility] Co de Phone Number [facility] [address] [place] [address] [phone] documented in this encounter Visit Diagnoses Diagnosis Acute left-sided low back pain without sciatica- Primary Foul smelling urine documented in this encounter Additional Health Concerns Assessment Noted Time PHQ-9 Depression Total Score: 3 08/08/19 25 12:51 PM EST documented as of this encounter Care Teams Manager Rental Relationship Specialty Start Date End Date Chavez Tinajero MD [address] [place] [phone] PCP - General Internal Medicine 12/15/19 documented as of this encounter
--- OUTSIDE RECORDS SUMMARY | 2024-08-10 09:40 | XMS_ITS | Clinical Summary ---
Author Organization [facility] Address [address] [place] [address] Care Team Providers Care Citrus Peeler Name Role Phone Unavailable Primary Care Provider Unavailabl e Allergies No known active allergies Medications No known medications Active Problems No known active problems Social History Tobacco Use Types Packs/Day Years Used Date Smoking Tobacco: Never Smokeless Tobacco: Never Sex and Gender Information Value Date Recorded Sex Assigned at Not on file Gender Identity Not on file Sexual Orientation Not on file Job Start Date Occupation Industry Not on file Not on file Not on file Plan of Treatment Health Maintenance Due Date Last Done Comments Hepatitis B Vaccines (1 of 3 - 3-dose series) 1986 Hepatitis C Screening 1986 COVID-19 Vaccine (#1) 1986 Depression Screening 1998 Preventative Health Evaluation 01/17/2004 DTap / Tdap / Td (1 - Tdap) 2005 Cervical Cancer Screening (P ap Smear) 2007 Influenza Vaccine (#1) 2024 Pneumococcal Vaccine Aged Out No long er eligible based on patient's age to complete this topic RSV Ped < 20 months Aged Out No longe r eligible based on patient's age to complete this topic
--- OUTSIDE RECORDS SUMMARY | 2024-08-10 09:40 | XMS_ITS | Clinical Summary ---
Author Organization [employer] Address [address] [place] [address] 7 [place] [address] Care Team Providers Care Winding Operator Name Role Phone Chavez Tinajero MD Primary Care Prov ider Allergies No known active allergies Medications omeprazole (PriLOSEC) [address] capsule take 1 capsule (20MG) by oral route every day before a meal 08/17/2018 Active copper (Paragard) IUD Activ e acetaminophen (Tylenol) 500 MG tablet Take 2 tablets by mouth in the morning and 2 tablets at noon and 2 tablets in the evening and 2 tablets before bedtime. 10/03/2019 Active cyclobenzaprine (Flexeril) 10 MG tablet Take 1 tablet (10 mg) by mouth 3 times daily for 10 days. 30 tablet 2 11/24/2023 Active celecoxib (CeleBREX) 200 MG capsuleIndicati ons:Acute left-sided low back pain without sciatica Take 1 capsule (200 mg) by mouth 2 times daily. 60 capsule 08/08/2024 Active Hospital, Clinic, or Other Facility Administered Medication Ordered Dose Route Frequency Start Date End Date Status ketorolac (Toradol) injection 30 mgIndications:Acute left-sided low back pain without sciatica 30 mg IM Once 08/08/2024 08/08/2024 Dis continued Active Problems Problem Noted Date Diagnosed Date Neck pain 10/18/2023 Assessment & Plan (11/24/2023 12:57 PM EDT): Continue NSAID and muscle relaxant as needed, avoid heavy lifting, may apply ice/heat as needed, call back if worsening Assessment & Plan (10/18/2023 5:02 PM EDT): Chronic, no neuropathy reported, will renew muscle relaxant she tried PT with moderate improvement, will refer to chiropractor, continue stretching exercises Sore throat and laryngitis 06/12/2023 Assessment & Plan (06/12/2023 10:56 AM EST): Advised to keep taking OTC medications and drink lots of fluids. COVID-19 06/12/2023 Assessment & Plan (06/12/2023 11:17 AM EST): Passed time from where Paxlovid is indicated. Discussed COVID self care and reasons to RTC. Bilateral carpal tunnel syndrome 04/17/2023 Assessment & Plan (10/18/2023 5:00 PM EDT): Moderate-severe, will place hand surgery consult Assessment & Plan (04/17/2023 4:31 PM EDT): Will order EMG to evaluate severity History of kidney stones 01/10/2023 Assessment & Plan (04/17/2023 4:32 PM EDT): Followd by urology, no hematuria, no dysuria Assessment & Plan (01/10/2023 3:50 PM EDT): Patient refers having back pressure, denied fever/chills, symptoms are similar to previous passage of kidney stones, will order a u/a and kub, told to keep well hydrated, and will place urology referral, reviewed red flags to visit ER Abnormal uterine bleeding (AUB) 09/07/2022 Assessment & Plan (09/07/2022 4:57 PM EST): Hemodynamically stable. Tender abdomen, ? Cervical motion tenderness but no erythema, will prescribe doxycyline. Will send labs, consider IUD removal if symptoms persist. At this moment she started her period. Hold of progesterone for now. Given age she may need an endometrial biopsy. Encounters Date Type Department Care Team Description 08/08/2024 11:15 AM EST Office Visit [facility] CHC MED & PEDS [address] [place] [address] Graciela German MD Acute left-sided low back pain without sciatica (Primary Dx); Foul smelling urine 08/08/2024 Travel 08/06/2024 Telephone [facility] MEDICINE [address] [place], [place] [phone] Chavez Tinajero MD Nurse Triage 06/12/2024 Orders Only [facility] External Provider, [facility] from Last 3 Months Immunizations Name Administration Dates Next Due Hep B, adult 05/08/2018,03/25/2016,02/18/2016 Influenza injectable quadriv alent IIV4 with preservative 05/08/2018 Influenza, IIV3, injectable 05/08/2014 Tdap 06/20/2014 Social History Tobacco Use Types Packs/Day Years Used Date Smoking Tobacco: Never Passive Smoke Exposure: Never Smokeless Tobacco: Never Tobacco Cessation:Counseling Given: Not Answered Alcohol Use Standard Drinks/Week Comments Never 0 (1 standard drink = 0.6 oz pur e alcohol) Depression Answer Date Recorded Patient Health Questionnaire-9 Score 3 08/08/2024 Patient Health Questionnaire-9 Score 3 08/08/2024 Last PHQ-9: Questionnaire Data Not on file 0 08/08/2024 Housing Stability Answer Date Recorded What is your housing situation today? I have katheryncallie fisher 05/02/[address] you [...] the past 12 months, has t he [employer], gas, oil or water [employer] threatened to shut off services in your home? No 05/02/2023 Depression Answer Date Recorded Patient Health Questionnaire-2 Score 2 08/08/2024 Comments Unknown Sex and Gender Information Value Date Recorded Sex Assigned at Female 05/16/2022 10:19 AM EDT Legal Sex Female 10:19 AM EDT Gender Identity Female 05/16/2022 10:19 AM EDT Sexual Orientation Straight 05/16/2022 10 :19 AM EDT Last Filed Vital Signs Vital Sign Reading [...] Mass Index 37.27 08/08/2024 11:18 AM EST Plan of Treatment Health Maintenance Due Date Last Done Comments Alcohol/Substance Use Screening 1998 Family Planning (PISQ) 2001 SDOH Screening 10/04/2023 10/03/2022 Mammogram 10/19/2023 10/18/2022, 10/18/2022, 09/14/2020 COVID-19 Vaccine (1 - 2023-2 5 season) 2024 Influenza Vaccine (#1) 2024 8, 05/08/2014 DTaP/Tdap/Td Vaccines (2 - T d or Tdap) 06/20/2024 06/20/2014 Pap Smear 11/09/2024 11/09/2021 Tobacco Screening 11/23/2024 11/24/2023 Depression Screening 08/08/2025 08/08/2024, 08/08/2024 Cervical Cancer Screening 11/09/2026 HPV/Cotest 11/09/2026 11/09/2021 Zoster Vaccines (1 of 2) 01/17/2036 RSV Patients and Patients Aged 60 years or older (1 - 1-dose 75+ series) 2061 Hepatitis B Vaccines Completed 05/08/2018, 03/25/2016, 02/18/2016 HIV Screening Completed 08/09/2019 Hepatitis C Screening Completed 08/09/2019 HIB Vaccines Aged Out No longer eligi ble based on patient's age to complete this topic HPV Vaccines Aged Out No longer eligi ble based on patient's age to complete this topic Hepatitis A Vaccines Aged Out No long er eligible based on patient's age to complete this topic IPV Vaccines Aged Out No longer eligi ble based on patient's age to complete this topic Meningococcal Vaccine Aged Out No daisy lasha eligible based on patient's age to complete this topic Pneumococcal Vaccine: Pediatrics (0 to 5 Years) and At-Risk Patients (6 to 64 Years) Aged Out No longer eligible b ased on patient's age to complete this topic RSV under 20 months Aged Out No longe r eligible based on patient's age to complete this topic Rotavirus Vaccines Aged Out No longer eligible based on patient's age to complete this topic Procedures Procedure Name Priority Date/Time Associated Diagnosis Comments POCT URINALYSIS DIPSTICK Routine 08/08/2024 11:48 AM EST Foul smelling urine CULTURE, URINE, ROUTINE Routine 08/08/2024 12:00 AM EST Acute left-sided low back pain without sciatica US RENAL BI Routine 06/12/2024 2:30 PM EST MAMMOGRAPHY Routine 10/18/2022 10:46 AM EDT THINPREP IMAGING PAP AND HPV MRNA E6/E7 WITH REFLEX TO HPV 16,18/45 Routine 11/09/2021 12:48 PM EDT ZZZ HISTORICAL HEPATITIS C ANTIBODY RFLX Routine 08/09/2019 11:23 AM EST [facility] HISTORICAL HIV AB/AG Routine 08/09/2019 11:23 AM EST from Last 3 Months or Most Recently Relevant to Health Maintenance Results * (ABNORMAL) POCT Urinalysis (08/08/2024 11:48 [...] Media Lot # [id number] Lot# Expiration Date [id number] Urine 08/08/2024 11:4 8 AM EST us Graciela German MD POINT OF CARE TEST ENTER/ED IT ORDERABLES Final Result * Culture, Urine, Routine (08/08/2024 12:00 AM EST) Urine Urine specimen obtained by clean catch procedure / Unknown 08/08/2024 08/08/2024 Comment:UACC Narrative [facility] - 08/10/2024 8:58 AM EST Urine Culture No growth. Specimen Source: Urine clean catch us Graciela German MD LAB MICROBIOLOGY - GENERAL ORDERABLES Final Result Performing Organization Address [facility]/State/ZIP Co de Phone Number [facility] [address] [place] [address] [phone] * US RENAL BI (06/12/2024 2:30 PM EST) Anatomical Region Laterality Modality Abdomen Ultrasound 06/12/2024 2:30 PM EST Narrative 06/13/2024 10:55 AM EST ? [facility] ?[address] ?[place] [address] ? Ultrasound Report ? Signed ? Patient: Rodriguez Juan,Nedra ?MR# ?? : [id number] ? : 1985 ?Acct:[id number] ? Age/Sex: 39 / F ?ADM Date: 11/27/24 ? Loc: HO.US ? Attending Dr: Juanita ALVARENGA ? Ordering Physician: Juanita Flores ?? Date of Service: 06/12/24 ?? Procedure(s): US renal BI ?? Accession Number(s): [id number] ? cc: Chavez Tinajero MD; Juanita Flores ? EXAMINATION: ?? US RETROPERITONEAL LIMITED (RENAL ONLY) ? CLINICAL INFORMATION: ?? Renal calculus. ? COMPARISON: ?? Renal ultrasound on 03/22/2023 ? TECHNIQUE: ?? Real-time imaging of the kidneys. ? FINDINGS: ? RIGHT KIDNEY: 11.6 x 5.2 x 4.5 cm (SAG x AP x TRV). The kidney is ?? normal in size, contour, and echogenicity. Renal cortical thickness is ?? normal. No hydronephrosis. There is increased echogenicity of the renal ?? medulla. There are 2 nonobstructing 0.3 cm calculi. ? LEFT KIDNEY: 11.1 x 5.5 x 4.4 cm (SAG x AP x TRV). The kidney is normal ?? in size, contour, and echogenicity. Renal cortical thickness is normal. ?? No hydronephrosis. There is increased echogenicity of the renal ?? medulla. There are multiple nonobstructing calculi measuring 0.2-0.4 cm. ? US/US renal BI ?? IMPRESSION: ?? 1. ??Bilateral medullary nephrocalcinosis. ?? 2. ??Bilateral nonobstructing renal calculi. ? Electronically signed by: ??Mily Jimenez MD ??06/13/2024 10:52 AM EST ?? RP ? Dictated By: ?Mily Jimenez MD ? Signed By: ?<Electronically signed by Mily Jimenez MD in OV> ? 06/13/24 1052 ? DD/ 1430 ? TD/TT: 06/12/24 1447 ? Arborer: PN ? Procedure Note Khushboo Taylor - 06/13/[address] [address] Ultrasound Report Signed Patient: Bernie Hill# : [id number] : 1985Acct:[id number] Age/Sex: 39 / FADM Date: 06/12/24 Loc: HO.US Attending Dr: Juanita ALVARENGA Ordering Physician: Juanita Flores Date of Service: 06/12/24 Procedure(s): US renal BI Accession Number(s): [id number] cc: Chavez Tinajero MD; Juanita Flores EXAMINATION: US RETROPERITONEAL LIMITED (RENAL ONLY) CLINICAL INFORMATION: Renal calculus. COMPARISON: Renal ultrasound on 03/22/2023 TECHNIQUE: Real-time imaging of the kidneys. FINDINGS: RIGHT KIDNEY: 11.6 x 5.2 x 4.5 cm (SAG x AP x TRV). The kidney is normal in size, contour, and echogenicity. Renal cortical thickness is normal. No hydronephrosis. There is increased echogenicity of the renal medulla. There are 2 nonobstructing 0.3 cm calculi. LEFT KIDNEY: 11.1 x 5.5 x 4.4 cm (SAG x AP x TRV). The kidney is normal in size, contour, and echogenicity. Renal cortical thickness is normal. No hydronephrosis. There is increased echogenicity of the renal medulla. There are multiple nonobstructing calculi measuring 0.2-0.4 cm. US/US renal BI IMPRESSION: 1. Bilateral medullary nephrocalcinosis. 2. Bilateral nonobstructing renal calculi. Electronically signed by: Mily Jimenez MD 06/13/2024 10:52 AM [facility] Dictated By: Mily Jimenez MD Signed By: <Electronically signed by Mily Jimenez MD in OV> 06/13/24 1052 DD/ 1430 TD/TT: 06/12/24 1447 Arborer: SUNNI [facility] External Provider IMG US PROCEDURES Final Result * Mammography (10/18/2022 10:46 AM EDT) Mammogram Bi-rads 2 Anatomical Region Laterality Modality Other Narrative 10/18/2022 10:46 AM EDT Routine annual bilateral mammography, beginning age 40, or earlier as clinical risk factors warrant. us Historical Provider HEALTH MAINTENANCE Final Result * THINPREP TIS PAP AND HPV mRNA E6/E7 WITH REFLEX TO HPV 16,18/45 (11/09/2021 12:48 PM EDT) Clinical Information: None given [facility] COMMENT SEE COMMENT [facility] Comment: EXPLANATORY NOTE: ? The Pap is a screening test for cervical cancer. It is ?? not a diagnostic test and is subject to false negative ?? and false positive results. It is most reliable when a ?? satisfactory sample, regularly obtained, is submitted ?? with relevant clinical findings and history, and when ?? the Pap result is evaluated along with historic and ?? current clinical information. ?? COMMENT: This Pap test has been evaluated with computer assisted technology. [facility] Websphere Developer: SEE COMMENT [facility] Comment: YP, CT(ASCP) CT screening location: [address] ??[address] HPV nRNA E6/E7 Not Detected Not Detected [facility] Comment: Methodology: Investment Officer-Mediated Amplification This assay detects E6/E7 viral messenger RNA (mRNA) from 14 high-risk HPV types (16,18,31,33,35,39,45,51,52,56,58,59,66,68). ? The analytical performance characteristics of this assay have been determined by [employer]. The modifications have not been cleared or approved by the FDA. This assay has been validated pursuant to the CLIA regulations and is used for clinical purposes. ?? For additional information, please refer to http://education.[employer]/faq/SNR330a5 (This link if provided for information/ educational purposes only.) Interpretation/Re sult: Negative for intraepithelial lesion or malignancy. [facility] LMP: 10/03/21 [facility] Prev. BX: NONE GIVEN [facility] Prev. PAP: 04/2018 [facility] SOURCE: None given [facility] Statement Of Adequacy: SEE COMMENT [facility] Comment: Satisfactory for evaluation. Endocervical/transformation zone component absent. 11/09/2021 12:4 8 PM EDT Sri Ndiaye CN LAB PATHOLOGY ORDERABLES Final Result Performing Organization Address [place] Phone Number [facility] [address] * HEPATITIS C ANTIBODY RFLX (08/09/2019 11:23 AM EST) HEPATITIS C ANTIBODY NONREACTIVE NONREACTIVE [facility] Comment: Antibodies to HCV not detected; does not exclude early acute HCV infection. 08/09/2019 11:2 3 AM EST Historical Provider HISTORICAL/NON ORDERABLE LABS Final Result Performing Organization Address [facility] [address] * HIV AB/AG (08/09/2019 11:23 AM EST) HIV AG/AB NONREACTIVE NR [facility] Comment: HIV-1 p24 Ag and/or HIV-1/HIV-2 Ab not detected. ?? A test result that is nonreactive does not exclude the possibility of exposure to or infection with HIV-1 and/or HIV-2. Nonreactive results in this assay for individuals with prior exposure to HIV-1 and/or HIV-2 may be due to antigen and antibody levels that are below the limit of detection of this assay. ?? The [employer] Administrator HIV Ag/Ab Combo assay result and supplemental assay results should be interpreted in conjunction with the patient's clinical presentation, history and other laboratory results. ??If the results are inconsistent with clinical evidence, additional testing is suggested to confirm the result. 08/09/2019 11:2 3 AM EST Historical Provider HISTORICAL/NON ORDERABLE LABS Final Result Performing Organization Address [facility] Number [facility] [address] from Last 3 Months or Most Recently Relevant to Health Maintenance Insurance [facility] , [address] [place] [address] [facility] Care Teams Winding Operator Relationship Specialty Start Date End Date Chavez Tinajero MD [address] [place] [phone] PCP - General Internal Medicine 12/15/19
--- OUTSIDE RECORDS SUMMARY | 2024-08-10 09:40 | XMS_ITS | Encounter Summary ---
Author Organization [employer] Address [address] [facility] 7t [place] [address] Care Team Providers Care Exhibit Electrician Name Role Phone Chavez Tinajero MD Primary Care Prov ider Encounter Details Date Type Department Care Team (Latest Contact Info) Description 08/08/2024 Travel Social History Tobacco Use Types Packs/Day Years [...] AM EDT documented as of this encounter Plan of Treatment Not on file documented as of this encounter Visit Diagnoses Not on filedocumented in this encounter Additional Health Concerns Assessment Noted Time PHQ-9 Depression Total Score: 3 08/08/19 25 12:51 PM EST documented as of this encounter Care Teams Exhibit Electrician Relationship Specialty Start Date End Date Chavez Tinajero MD [address] [place] [phone] PCP - General Internal Medicine 12/15/19 documented as of this encounter
== END 2024-08-10 09:39 | disposition home or self-care (01) ==
LOC: HO.XRAY 09:38
PROVIDERS: PCP Internal Medicine; Visit Provider Internal Medicine
DX: M54.50 Low back pain, unspecified (principal)
CPT/HCPCS: 72100

== ENCOUNTER → 2024-08-10 09:49 | Outpatient (BNV) | payer OTHER, SELFPAY | PROVIDERS: PCP Internal Medicine; Visit Provider Radiology Diagnostic Radiology | DX: M54.50 Low back pain, unspecified (principal) | CPT/HCPCS: 72100 ==

== ENCOUNTER 2024-08-26 13:53 | Outpatient (REF) | payer OTHER, SELFPAY ==
[2024-08-26 14:14] LABS: Appearance Urine Clear; Color Urine Yellow; Glucose Urine UA Negative (Negative); Leukocyte Esterase Urine Small (1+) (Negative); Nitrite Urine Negative (Negative); PH 6.5 (5.0-9.0); UMIC TRIGGER UA YES; Urine Blood Trace (Negative); Urine Ketones Negative (Negative); Urine Protein Negative (Neg-Trace)
[2024-08-26 14:16] LABS: Bacteria Urine 2+ (None Seen); Hyaline Casts Urine 0-2 /LPF (0-2)
--- OUTSIDE RECORDS SUMMARY | 2024-08-26 15:03 | XMS_ITS | Encounter Summary ---
Author Organization [employer] Address [address] [facility] [address] [address] Care Team Providers Care Tube Cleaning Operator Name Role Phone Chavez Tinajero MD Primary Care Prov ider Encounter Details Date Type Department Care Team ([facility] st Contact Info) Description 09/09/2022 Telephone [facility]C MED & PEDS [address] [place], [place] [phone] Dilma Wade, CRISTOFER [address] [place] [address] Social History Tobacco Use Types Packs/Day Years [...] on filedocumented in this encounter Care Teams Tube Cleaning Operator Relationship Specialty Start Date End Date Chavez Tinajero MD [address] [place], [place] [phone] PCP - General Internal Medicine 12/15/19 documented as of this encounter
--- OUTSIDE RECORDS SUMMARY | 2024-08-26 15:03 | XMS_ITS | Encounter Summary ---
Author Organization [employer] Address [address] [facility] 7t [place] [address] Care Team Providers Care Rig Operator Name Role Phone Chavez Tinajero MD Primary Care Prov ider Encounter Details Date Type Department Care Team ([facility] st Contact Info) Description 08/15/[address] [facility] CHC MED & PEDS [address] [place], [place] [phone] Chavez Tinajero MD [address] [place] [address] Social History Tobacco Use Types Packs/Day Years [...] encounter Miscellaneous Notes * Telephone Encounter - Gale Hernandez - 08/15/2024 11:40 AM EST [facility] received a call from pcp office and is returning the call. documented in this encounter Plan of Treatment Not on file documented as of this encounter Visit Diagnoses Not on filedocumented in this encounter Additional Health Concerns Assessment Noted Time PHQ-9 Depression Total Score: 3 08/08/19 25 12:51 PM EST documented as of this encounter Care Teams Rig Operator Relationship Specialty Start Date End Date Chavez Tinajero MD [address] [place] [phone] PCP - General Internal Medicine 12/15/19 documented as of this encounter
--- OUTSIDE RECORDS SUMMARY | 2024-08-26 15:03 | XMS_ITS | Clinical Summary ---
Author Organization [facility] Address [address] [place] [address] Care Team Providers Care Summer Child Caregiver Name Role Phone Unavailable Primary Care Provider [...]
--- OUTSIDE RECORDS SUMMARY | 2024-08-26 15:03 | XMS_ITS | Encounter Summary ---
Author Organization [employer] Address [address] [place] [address] 7 [place] [address] Care Team Providers Care Bolt Loader Name Role Phone Chavez Tinajero MD Primary Care Prov ider Encounter Details Date Type Department Care Team ([facility] st Contact Info) Description 01/09/2023 Abstract [facility] MED & PEDS [address] [place], [place] [phone] Chavez Tinajero MD [address] [place] [address] Social History Tobacco Use Types Packs/Day Years Used Date Smoking Tobacco: Never Passive Smoke Exposure: Never Smokeless Tobacco: Never Alcohol Use Standard Drinks/Week Comments Never 0 (1 standard drink = 0.6 oz pur e alcohol) Depression Answer Date Recorded Patient Health Questionnaire-9 Score 0 10/03/2022 Depression Answer Date Recorded Patient Health Questionnaire-2 [...] suspected to have Coronavirus/COVID-19? No / Unsure 01/03/2023 12:03 PM EDT documented as of this encounter Plan of Treatment Not on file documented as of this encounter Procedures Procedure Name Priority Date/Time Associated Diagnosis Comments MAMMOGRAPHY Routine 10/18/2022 10:46 AM EDT documented in this encounter Results * Mammography (10/18/2022 10:46 AM EDT) Mammogram Bi-rads 2 Anatomical Region Laterality Modality Other Narrative 10/18/2022 10:46 AM EDT Routine annual bilateral mammography, beginning age 40, or earlier as clinical risk factors warrant. Historical Provider HEALTH MAINTENANCE Final Result documented in this encounter Visit Diagnoses Not on filedocumented in this encounter Additional Health Concerns Assessment Noted Time PHQ-9 Depression Total Score: 0 10/04/19 23 3:51 PM EDT documented as of this encounter Care Teams Bolt Loader Relationship Specialty Start Date End Date Chavez Tinajero MD [address] [place] [address] PCP - General Internal Medicine 12/15/19 documented as of this encounter
--- OUTSIDE RECORDS SUMMARY | 2024-08-26 15:03 | XMS_ITS | Encounter Summary ---
Author Organization [employer] Address [address] [place] [address] Care Team Providers Care Shearing Shed Worker Name Role Phone Chavez Tinajero MD Primary Care Prov ider Reason for Visit * Reason Onset Date Comments No Show 08/20/2024 Encounter Details Date Type Department Care Team ([facility] Contact Info) Description 08/20/2024 Telephone [facility] CHC MED & PEDS [address] [place], [place] [phone] Chavez Tinajero MD [address] [place] [address] No Show Social History Tobacco Use Types Packs/Day Years [...] encounter Miscellaneous Notes * Telephone Encounter - Janell Flores - 08/20/2024 4:16 PM EST No Show 08/20/24 documented in this encounter Plan of Treatment Not on file documented as of this encounter Visit Diagnoses Not on filedocumented in this encounter Additional Health Concerns Assessment Noted Time PHQ-9 Depression Total Score: 3 08/08/19 25 12:51 PM EST documented as of this encounter Care Teams Shearing Shed Worker Relationship Specialty Start Date End Date Chavez Tinajeor MD [address] [place] [phone] PCP - General Internal Medicine 12/15/19 documented as of this encounter
--- OUTSIDE RECORDS SUMMARY | 2024-08-26 15:03 | XMS_ITS | Encounter Summary ---
Author Organization [employer] Address [address] [facility] 7t [place] [address] Care Team Providers Care Sales And Marketing Intern Name Role Phone Chavez Tinajero MD Primary Care Prov ider Encounter Details Date Type Department Care Team ([facility] st Contact Info) Description 08/14/2024 Orders Only [facility] MED & PEDS [address] [place], [place] [phone] Graciela German MD 505 [place] [address] Microscopic hematuria (Primary Dx) Social History Tobacco Use Types Packs/Day Years [...] Procedure Name Priority Date/Time Associated Diagnosis Comments URINALYSIS, COMPLETE Routine 08/26/2024 2:00 PM EST Microscopic hematuria documented in this encounter Results * (ABNORMAL) Urinalysis Complete (08/26/2024 2:00 PM EST) Color Urine Yellow [facility] Appearance Urine Clear [facility] PH 6.5 5.0 - 9.0 [facility] Glucose Urine UA Negative Negative mg/dL [facility] Urine Blood Trace(A) Negative [facility] Specific [place] - Urine 1.020 1.005 - 1.025 [facility] Urine Protein Negative Neg-Trace mg/dL [facility] Urine Ketones Negative Negative mg/dL [facility] Nitrite Urine Negative Negative [facility] Leukocyte Esterase Urine Small (1+)(A) Negative [facility] RBC Urine 3-5(A) 0 - 2 /HPF [facility] Urine WBC 6-10(A) 0 - 5 /HPF [facility] Urine Squamous Epithelial Cell 6-10 0 - 2 /HPF [facility] Urine Bacteria 2+ None Seen [facility] Hyaline Casts, Urine 0-2 0 - 2 /LPF [facility] Urine (Urine, Random) 08/26/2024 2:00 PM EST 08/26/2024 2:08 PM EST us Graciela German MD LAB URINE ORDERABLES Final Result [facility] [address] [place] [address] [phone] documented in this encounter Visit Diagnoses Diagnosis Microscopic hematuria- Primary documented in this encounter Additional Health Concerns Assessment Noted Time PHQ-9 Depression Total Score: 3 08/08/19 25 12:51 PM EST documented as of this encounter Care Teams Sales And Marketing Intern Relationship Specialty Start Date End Date Chavez Tinajero MD [address] [place] [phone] PCP - General Internal Medicine 12/15/19 documented as of this encounter
--- OUTSIDE RECORDS SUMMARY | 2024-08-26 15:04 | XMS_ITS | Encounter Summary ---
Author Organization [employer] Address [address] [place] [address] Care Team Providers Care Composition Siding Worker Name Role Phone Chavez Tinajero MD Primary Care Prov ider Reason for Visit * Reason Onset Date Comments Nurse Triage 08/06/2024 Encounter Details Date Type Department Care Team ([facility] st Contact Info) Description 08/06/2024 Telephone [facility] MEDICINE [address] [place] [address] Chavez Tinajero MD [address] [place] [address] Nurse Triage Social History Tobacco Use Types [...] or other associated symptoms. given appt with [facility] provider at 11:15 for exam. advised [...] documented as of this encounter Care Teams Composition Siding Worker Relationship Specialty Start Date End Date Chavez Tinajero MD [address] [place] [phone] PCP - General Internal Medicine 12/15/19 documented as of this encounter
--- OUTSIDE RECORDS SUMMARY | 2024-08-26 15:04 | XMS_ITS | Encounter Summary ---
Author Organization [employer] Address 75 [facility] 7t [place] [address] Care Team Providers Care Line O Scribe Operator Name Role Phone Chavez Tinajero MD [...] documented as of this encounter Care Teams Line O Scribe Operator Relationship Specialty Start Date End Date Chavez Tinajero MD [address] [place] [phone] PCP - General Internal Medicine 12/15/19 documented as of this encounter
--- OUTSIDE RECORDS SUMMARY | 2024-08-26 15:04 | XMS_ITS | Clinical Summary ---
Author Organization [employer] Address [address] [place] [address] 7 [place] [address] Care Team Providers Care Hose Maker Name Role Phone Chavez Tinajero MD Primary [...] Encounters Date Type Department Care Team Description 08/20/2024 Telephone [facility] MED & PEDS [address] [place] [address] Chavez Tinajero MD No Show 08/15/2024 Telephone [facility] MED & PEDS [address] [place] [address] Chavez Tinajero MD 08/14/2024 Orders Only [facility] MED & PEDS [address] [place] [address] Graciela German MD Microscopic hematuria (Primary Dx) 08/08/2024 11:15 AM EST Office Visit [facility] MED & PEDS [address] [place] [address] Graciela German MD Acute left-sided low back pain without sciatica (Primary Dx); Foul smelling urine 08/08/2024 Travel 08/06/2024 Telephone [facility] MEDICINE [address] [place] [address] Chavez Tinajero MD Nurse Triage 06/12/2024 Orders Only [facility] External Provider, [facility] from Last 3 Months Immunizations Name [...] Mammogram 10/19/2023 10/18/2022, 10/18/2022, 09/14/2020 COVID-19 Vaccine ( - 2023-2 5 season) 2024 Influenza Vaccine [...] 5 Years) and At-Risk Patients (6 to 49) Years) Aged Out No longer eligible b [...] Routine 08/26/2024 2:00 PM EST Microscopic hematuria XR LUMBAR SPINE 2-3 VIEWS Routine 08/10/2024 9:49 AM EST Acute left-sided low back pain without sciatica POCT URINALYSIS DIPSTICK Routine 08/08/2024 11:48 AM EST Foul smelling urine CULTURE, URINE, ROUTINE Routine 08/08/2024 12:00 AM EST Acute left-sided low back pain without sciatica US RENAL BI Routine 06/12/2024 2:30 PM EST MAMMOGRAPHY Routine 10/18/2022 10:46 AM EDT THINPREP IMAGING PAP AND HPV MRNA E6/E7 WITH REFLEX TO HPV 16,18/45 Routine 11/09/2021 12:48 PM EDT [facility] HISTORICAL HEPATITIS C ANTIBODY RFLX Routine 08/09/2019 11:23 AM EST [place] HISTORICAL HIV AB/AG Routine 08/09/2019 11:23 AM EST from Last 3 Months or Most Recently Relevant to Health Maintenance Results * (ABNORMAL) Urinalysis Complete (08/26/2024 2:00 PM EST) Color Urine Yellow [facility] Appearance Urine Clear [facility] PH 6.5 5.0 - 9.0 [facility] Glucose Urine UA Negative Negative mg/dL [facility] Urine Blood Trace(A) Negative [facility] Specific [place] - Urine 1.020 1.005 - 1.025 [facility] Urine Protein Negative Neg-Trace mg/dL [facility] Urine Ketones Negative Negative mg/dL [facility] Nitrite Urine Negative Negative [facility] Leukocyte Esterase Urine Small (1+)(A) Negative [facility] RBC Urine 3-5(A) 0 - 2 /HPF [facility] Urine WBC 6-10(A) 0 - 5 /HPF [facility] Urine Squamous Epithelial Cell 6-10 0 - 2 /HPF [facility] Urine Bacteria 2+ None Seen [facility] Hyaline Casts, Urine 0-2 0 - 2 /LPF [facility] Urine (Urine, Random) 08/26/2024 2:00 PM EST 08/26/2024 2:08 PM EST us Graciela German MD LAB URINE ORDERABLES Final Result [facility] [address] [place] [address] [phone] * XR Lumbar Spine 2-3 Views (08/10/2024 9:49 AM EST) Anatomical Region Laterality Modality Spine, L-spine Radiographic Zoya ging 08/10/2024 9:49 AM EST Narrative 08/12/2024 9:01 AM EST ? [facility] ?[address] ?[place] [address] ?XRay Report ? Signed ? Patient: Nedra Hill ?MR# ?? : [id number] ? : 1985 ?Acct:[id number] ? Age/Sex: 39 / F ?ADM Date: 08/10/24 ? Loc: HO.XRAY ? Attending Dr: Graciela German MD ? Ordering Physician: Graciela German MD ?? Date of Service: 08/10/24 ?? Procedure(s): XR lumbar spine 2-3V ?? Accession Number(s): [id number] ? cc: Graciela German MD; Chavez Tinajero MD ? EXAMINATION: ??XR LUMBAR SPINE 2-3 VIEWS ? HISTORY: Low back pain ? COMPARISON: Comparison is made with the prior examination dated ?? 09/13/2021. ? FINDINGS: ??AP, lateral, and coned down views of the lumbar spine are ?? submitted. ??Osseous mineralization is normal. ??Five nonrib-bearing ?? lumbar vertebral bodies are identified, maintaining normal height and ?? alignment without evidence of fracture or spondylolisthesis. ??There is ?? mild degenerative change at T12-L1 with disc space narrowing and ?? anterior osteophyte formation. The lumbar intervertebral disc spaces ?? are preserved. Again seen are tiny Schmorl's nodes at multiple levels. ? The posterior elements are intact. ??There is sclerosis of the left SI ?? joint. There is an IUD in the midline of the pelvis. ? XR/XR lumbar spine 2-3V ?? IMPRESSION: ?? No interval degenerative changes. ? Electronically signed by: ??Faustino Price MD ??08/12/2024 08:58 AM EST ?? RP ? Dictated By: ?Faustino Price MD ? Signed By: ?<Electronically signed by Faustino Price MD in OV> ?08/12/24857 ? DD/ ? TD/TT: 08/10/24 0955 ? Sponge Diver: ? Procedure Note Donjayyinterpreter, Image - 08/12/[address] [address] XRay Report Signed Patient: Nedra HillMR# : [id number] : 1985Acct:[id number] Age/Sex: 39 / FADM Date: 08/10/24 Loc: HO.MARIANNE Attending Dr: Graciela German MD Ordering Physician: Grcaiela German MD Date of Service: 08/10/24 Procedure(s): XR lumbar spine 2-3V Accession Number(s): [id number] cc: Graciela German MD; Chavez Tinajero MD EXAMINATION: XR LUMBAR SPINE 2-3 VIEWS HISTORY: Low back pain COMPARISON: Comparison is made with the prior examination dated 09/13/2021. FINDINGS: AP, lateral, and coned down views of the lumbar spine are submitted. Osseous mineralization is normal. Five nonrib-bearing lumbar vertebral bodies are identified, maintaining normal height and alignment without evidence of fracture or spondylolisthesis. There is mild degenerative change at T12-L1 with disc space narrowing and anterior osteophyte formation. The lumbar intervertebral disc spaces are preserved. Again seen are tiny Schmorl's nodes at multiple levels. The posterior elements are intact. There is sclerosis of the left SI joint. There is an IUD in the midline of the pelvis. XR/XR lumbar spine 2-3V IMPRESSION: No interval degenerative changes. Electronically signed by: Faustino Price MD 08/12/2024 08:58 AM EST Dictated By: Faustino Price MD Signed By: <Electronically signed by Faustino Price MD in OV> 08/12/24 0858 DD/ 0949 TD/TT: 08/10/24 0955 Sponge Diver: Graciela German MD IMG XR PROCEDURES Edited Re sult - Final * (ABNORMAL) POCT Urinalysis (08/08/2024 11:48 AM [...] Media Lot # [id number] Lot# Expiration Date Urine 08/08/2024 11:4 8 AM EST Graciela German MD POINT OF CARE TEST ENTER/ED IT ORDERABLES Final Result * Culture, Urine, Routine (08/08/2024 12:00 AM EST) Urine Urine specimen obtained by clean catch procedure / Unknown 08/08/2024 08/08/2024 Comment:UACC Narrative [facility] - 08/10/2024 8:58 AM EST Urine Culture No growth. Specimen Source: Urine clean catch Graciela German MD LAB MICROBIOLOGY - GENERAL ORDERABLES Final Result [facility] [address] [place] [address] [phone] * US RENAL BI (06/12/2024 2:30 PM EST) Anatomical Region Laterality Modality Abdomen Ultrasound 06/12/2024 2:30 PM EST Narrative 06/13/2024 10:55 AM EST ? [facility] ?[address] ?[place] [address] ? Ultrasound Report ? Signed ? Patient: Rodriguez Juan,Nedra ?MR# ?? : [id number] ? : 1985 ?Acct:[id number] ? Age/Sex: 39 / F ?ADM Date: 06/12/24 ? Loc: HO.US ? Attending Dr: Juanita ALVARENGA ? Ordering Physician: Juanita Flores ?? Date of Service: 06/12/24 ?? Procedure(s): US renal BI ?? Accession Number(s): [id number] ? cc: Chavez Tinajero MD; Juanita Flores [...] by Mily Jimenez MD in OV> ? 06/13/ 1052 ? DD/ 1430 ? TD/TT: 06/12/24 1447 ? Sponge Diver: PN ? Procedure Note Donotuseinterpreter, Image - 06/13/[address] [address] Ultrasound Report Signed Patient: Nedra HillMR# : [id number] : 1985Acct:[id number] Age/Sex: 39 / FADM Date: 06/12/24 Loc: HO.US Attending Dr: Juanita ALVARENGA Ordering Physician: Juanita Flores Date of Service: 06/12/24 Procedure(s): US renal BI Accession Number(s): [id number] cc: Chavez Tinajero MD; Juanita Flores EXAMINATION: [...] by: Mily Jimenez MD 06/13/2024 10:52 AM EST Dictated By: Mily Jimenez MD Signed By: <Electronically signed by Mily Jimenez MD in OV> 06/13/24 1052 DD/ 1430 TD/TT: 06/12/24 1447 Sponge Diver: SUNNI [facility] External Provider IMG US PROCEDURES Final Result * Hm Mammography (10/18/2022 10:46 AM EDT) Mammogram Bi-rads 2 Anatomical Region Laterality Modality Other Narrative 10/18/2022 10:46 AM EDT Routine annual bilateral mammography, beginning age 40, or earlier as clinical risk factors warrant. Historical Provider HEALTH MAINTENANCE Final Result * THINPREP TIS PAP AND HPV mRNA E6/E7 WITH REFLEX TO HPV 16,18/45 (11/09/2021 12:48 PM EDT) Clinical Information: None given [facility] COMMENT SEE COMMENT [facility] [...] has been evaluated with computer assisted technology. [employer] Patent Attorney: SEE COMMENT [facility] Comment: YP, CT(ASCP) CT screening location: [address] ??[address] HPV nRNA E6/E7 Not Detected Not Detected [facility] [facility] Comment: Methodology: Minibus Driver-Mediated Amplification This assay detects E6/E7 viral messenger RNA (mRNA) from 14 high-risk HPV types (16,18,31,33,35,39,45,51,52,56,58,59,66,68). ? The analytical performance characteristics of this assay have been determined by [employer]. The modifications have not been cleared or approved by the FDA. This assay has been validated pursuant to the CLIA regulations and is used for clinical purposes. ?? For additional information, please refer to http://education.InnoCyte/faq/SOA293f3 (This link if provided for information/ educational purposes only.) Interpretation/Re sult: Negative for intraepithelial lesion or malignancy. [facility] LMP: 10/03/21 [facility] Prev. BX: NONE GIVEN [facility] Prev. PAP: 04/2018 [facility] SOURCE: None given [facility] Statement Of Adequacy: SEE COMMENT [facility] Comment: Satisfactory for evaluation. Endocervical/transformation zone component absent. 11/09/2021 12:4 8 PM EDT Sri [facility] LAB PATHOLOGY ORDERABLES Final Result Performing Organization Address [facility] de Phone Number [facility] [address] * HEPATITIS C ANTIBODY RFLX (08/09/2019 11:23 AM EST) Pathologist [facility] HEPATITIS C ANTIBODY NONREACTIVE NONREACTIVE [facility] Comment: Antibodies to HCV not detected; does not exclude early acute HCV infection. 08/09/2019 11:2 3 AM EST Historical Provider MD HISTORICAL/NON ORDERABLE LABS Final Result Performing Organization Address [facility] Phone Number [facility] [address] [place] [address], * HIV AB/AG (08/09/2019 11:23 AM EST) Pathologist [facility] HIV AG/AB NONREACTIVE NR [facility] LAB [...] detection of this assay. ?? The [employer] Cut And Print Machine Operator HIV Ag/Ab Combo assay result and supplemental assay results should be interpreted in conjunction with the patient's clinical presentation, history and other laboratory results. ??If the results are inconsistent with clinical evidence, additional testing is suggested to confirm the result. 08/09/2019 11:2 3 AM EST us Historical Provider HISTORICAL/NON ORDERABLE LABS Final Result [facility] [address] from Last 3 Months or Most Recently Relevant to Health Maintenance Insurance , [address] [place] [address] [facility] Care Teams Hose Maker Relationship Specialty Start Date End Date Chavez Tinajero MD [address] [place] [phone] PCP - General Internal Medicine 12/15/19
--- OUTSIDE RECORDS SUMMARY | 2024-08-26 15:04 | XMS_ITS | Encounter Summary ---
Author Organization [employer] Address [address] [place] [address] [place], [place] [address] Care Team Providers Care Compensator Name Role Phone Chavez Tinajero MD Primary Care Prov ider Reason for Referral * Consultation (Routine) - Closed Specialty Diagnoses / Procedures Referred By Contac t Referred To Contact Physical Therapy Diagnoses Acute left-sided low back pain without sciatica Graciela German MD [address] [place] [address] Phone: tel: fax: Physical Therapy, [facility] [address] [facility] [address] [place] [address] Phone: tel: fax: Referral ID Status Reason Start Date Expiration Date V isits Requested Visits Authorized [id number] Closed Specialty Services Required 08/08/2024 08/08/2025 1 1 Reason for Visit * Reason Comments Back Pain Encounter Details Date Type Department Care Team ([facility] st Contact Info) Description 08/08/2024 11:15 AM EST Office Visit [facility] MED & PEDS [address] [place] [address] Graciela German MD [address] [place] [address] Acute left-sided low back pain without sciatica [...] 11:15 AM EST Subjective Patient ID: Nedra Florse is a 39 y.o. female who presents [...] with the results of the urine culture. * Angelic Ca RN - 08/08/2024 11:15 AM EST TC to patient to review labs and recommendations. No answer, message for left for patient to returncall. documented in this encounter Miscellaneous Notes * Result Encounter Note - Graciela German MD - 08/08/2024 11:15 AM EST Please call. The blood culture is negative. Patient had microscopic hematuria at the last visit. I recommend repeating the urinalysis. If the hematuria is confirmed I will order an ultrasound of the kidneys. documented in this encounter Plan of Treatment Scheduled Referrals Name Type Priority Associated Diagnoses Orde r Schedule Referral to Physical Therapy Outpatient Referral Routine Acute left-sided low back pain without sciatica Expected: 08/08/2024 (Approximate), Expires: 08/08/2025 documented as of this encounter Procedures Procedure Name Priority Date/Time Associated Diagnosis Comments XR LUMBAR SPINE 2-3 VIEWS Routine 08/10/2024 9:49 AM EST Acute left-sided low back pain without sciatica POCT URINALYSIS DIPSTICK Routine 08/08/2024 11:48 AM EST Foul smelling urine CULTURE, URINE, ROUTINE Routine 08/08/2024 12:00 AM EST Acute left-sided low back pain without sciatica documented in this encounter Results * XR Lumbar Spine 2-3 Views (08/10/2024 9:49 AM EST) Anatomical Region Laterality Modality Spine, L-spine Radiographic Zoya ging 08/10/2024 9:49 AM EST Narrative 08/12/2024 9:01 AM EST ? [facility] ?[address] ?[place] [address] ?XRay Report ? Signed ? Patient: Nedra Hill ?MR# ?? : [id number] ? : 1985 ?Acct:[id number] ? Age/Sex: 39 / F ?ADM Date: 08/10/24 ? Loc: HO.XRAY ? Attending Dr: Graciela German MD ? Ordering Physician: Graciela German MD ?? Date of Service: 08/10/24 ?? Procedure(s): XR lumbar spine 2-3V ?? Accession Number(s): [id number] ? cc: Graciela German MD; Chavez Tinajero [...] ??Faustino Price MD ??08/12/2024 08:58 AM EST ? Dictated By: ?Faustino Price MD ? Signed By: ?<Electronically signed by Faustino Price MD in OV> ?08/12/24 0858 ? DD/ 0949 ? TD/TT: 08/10/24 0955 ? Internet Salesperson: ? Procedure Note [place], Image - 08/12/[address] [address] XRay Report Signed Patient: Nedra HillMR# : [id number] : 1985Acct:[id number] Age/Sex: 39 / FADM Date: 08/10/24 Loc: OTTO Attending Dr: Graciela German MD Ordering Physician: Graciela German MD Date of Service: 08/10/24 Procedure(s): XR lumbar spine 2-3V Accession Number(s): [id number] cc: Graciela German MD; Chavez Tinajero MD [...] Price MD in OV> 08/12/24 0858 DD/ TD/TT: 08/10/24 0955 Internet Salesperson: us Graciela German MD IMG XR PROCEDURES Edited [...] Date Urine 08/08/2024 11:4 8 AM EST us Graciela German MD POINT OF CARE TEST ENTER/ED IT ORDERABLES Final Result * Culture, Urine, Routine (08/08/2024 12:00 AM EST) Urine Urine specimen obtained by clean catch procedure / Unknown 08/08/2024 08/08/2024 Comment:UACC Narrative [facility] - 08/10/2024 8:58 AM EST Urine Culture No growth. Specimen Source: Urine clean catch us Graciela German MD LAB MICROBIOLOGY - GENERAL ORDERABLES Final Result [facility] [address] [place] [phone] documented in this encounter Visit Diagnoses Diagnosis Acute left-sided low back pain without sciatica- Primary Foul smelling urine documented in this encounter Additional Health Concerns Assessment Noted Time PHQ-9 Depression Total Score: 3 08/08/19 12:51 PM EST documented as of this encounter Care Teams Compensator Relationship Specialty Start Date End Date Chavez Tinajero MD [address] [place] [address] PCP - General Internal Medicine 12/15/19 documented as of this encounter
== END 2024-08-26 13:54 | disposition home or self-care (01) ==
LOC: HO.LAB 13:53
PROVIDERS: PCP Internal Medicine; Visit Provider Internal Medicine
DX: R31.29 Other microscopic hematuria (principal)
CPT/HCPCS: 81001

== ENCOUNTER 2024-09-13 14:21 | Outpatient (REF) | payer OTHER, SELFPAY ==
--- NOTE | ~2024-09-13 | US_ITS ---
EXAMINATION: US KIDNEY BILATERAL HISTORY: back pain, microscopic hematuria, hx of kidney stones TECHNIQUE: Real-time grayscale ultrasound imaging of the kidneys was performed and images were reviewed. COMPARISON: Comparison is made with the prior examination dated 06/12/2024. FINDINGS: Right kidney: The right kidney measures 9.9 x 4.1 x 5.2 cm. Renal cortical thickness is normal. Again seen is increased echogenicity of the calyces suggestive of medullary nephrocalcinosis. There are no masses. Multiple nonobstructing calculi are noted measuring up to 6 mm in size. There is no hydronephrosis. Left Kidney: The left kidney measures 10.2 x 5.7 x 5.2 cm. Renal cortical thickness is normal. Again seen is increased echogenicity of the calyces, suggestive of medullary nephrocalcinosis. There are no masses. Multiple nonobstructing calculi are noted measuring up to 5 mm in size. There is no hydronephrosis. US/US renal BI IMPRESSION: Findings consistent with medullary nephrocalcinosis. Bilateral nephrolithiasis without hydronephrosis. Electronically signed by: Faustino Price MD 09/16/2024 07:28 AM EST
--- OUTSIDE RECORDS SUMMARY | 2024-09-13 16:31 | XMS_ITS | Encounter Summary ---
Author Organization [employer] Address [address] [place] [address] Care Team Providers Care Sales Solutions Representative Name Role Phone Chavez Tinajero MD Primary Care Prov ider Reason for Referral * Consultation (Routine) - Authorized Specialty Diagnoses / Procedures Referred By Theresa zhao Referred To Contact Urology Diagnoses History of kidney stones Graciela German MD [address] [place] [address] Phone: tel: fax: [facility] [address] [place] [address] Phone: tel: fax: Referral ID Status Reason Start Date Expiration Date Visits Requested Visits Authorized [id number] Authorized Specialty Services Required 08/29/2024 08/29/2025 1 1 Encounter Details Date Type Department Care Team (Late st Contact Info) Description 08/29/2024 Orders Only [facility] MED & PEDS [address] [place] [address] Graciela German MD [address] [place] [phone] History of kidney stones (Primary Dx) Social History Tobacco Use Types [...] as of this encounter Plan of Treatment Scheduled Referrals Name Type Priority Associated Diagnoses Orde r Schedule Referral to Urology Outpatient Referral Routine History of kidney stones Expected: 08/29/2024 (Approximate), Expires: 08/29/2025 documented as of this encounter Visit Diagnoses Diagnosis History of kidney stones- Primary documented in this encounter Additional Health Concerns Assessment Noted Time PHQ-9 Depression Total Score: 3 08/08/19 25 12:51 PM EST documented as of this encounter Care Teams Sales Solutions Representative Relationship Specialty Start Date End Date Chavez Tinajero MD [address] [place] [address] PCP - General Internal Medicine 12/15/19 documented as of this encounter
--- OUTSIDE RECORDS SUMMARY | 2024-09-13 16:31 | XMS_ITS | Encounter Summary ---
Author Organization [email or web address] Address [address] [place] [address] Care Team Providers Care Collector Name Role Phone Chavez Tinajero MD Primary Care Prov ider Reason for Referral * Imaging (Routine) - Authorized Specialty Diagnoses / Procedures Referred By Contac t Referred To Contact Radiology Diagnoses History of kidney stones Procedures US RENAL BI Chavez Tinajero MD [address] [place] [address] Phone: tel: fax: [address] Phone: tel: fax: Referral ID Status Reason Start Date Expiration Date V isits Requested Visits Authorized [id number] Authorized 08/30/2024 08/30/2025 1 1 Encounter Details Date Type Department Care Team (Late st Contact Info) Description 08/30/2024 Orders Only [facility] CHC MED & PEDS [address] [place] [address] Chavez Tinajero MD [address] [place], [place] [phone] History of kidney stones (Primary Dx) Social [...] of this encounter Plan of Treatment Scheduled Orders Name Type Priority Associated Diagnoses Orde r Schedule US RENAL BI Imaging Routine History of kidney stones Expected: 08/30/2024, Expires: 08/30/2025 documented as of this encounter Visit Diagnoses Diagnosis History of kidney stones- Primary documented in this encounter Additional Health Concerns Assessment Noted Time PHQ-9 Depression Total Score: 3 08/08/19 25 12:51 PM EST documented as of this encounter Care Teams Collector Relationship Specialty Start Date End Date Chavez Tinajero MD [address] [place] [address] PCP - General Internal Medicine 12/15/19 documented as of this encounter
--- OUTSIDE RECORDS SUMMARY | 2024-09-13 16:31 | XMS_ITS | Clinical Summary ---
Author Organization [facility] Address [address] [place] [address] Care Team Providers Care Host/Hostess Name Role Phone Unavailable Primary Care Provider [...]
--- OUTSIDE RECORDS SUMMARY | 2024-09-13 16:31 | XMS_ITS | Encounter Summary ---
Author Organization [employer] Address [address] [place] [address] Care Team Providers Care Agricultural Economics Teacher Name Role Phone Chavez Tinajero MD Primary Care Prov ider Reason for Visit * Reason Onset Date Comments Results 08/30/2024 Encounter Details Date Type Department Care Team ([facility] Contact Info) Description 08/30/2024 Telephone [facility] CHC MED & PEDS 505 [place], [place] [phone] Graciela German MD 505 [place] [address] Results Social History Tobacco Use Types Packs/Day Years [...] encounter Miscellaneous Notes * Telephone Encounter - Wing Maranda RN - 08/30/2024 10:07 AM EST Tc to pt regarding lab results, pt requesting US. Spoke to PCP who agreed as pt also already has referral to urology. PCP also considered medication for kidney stones if needed. Relay info to pt who verbalized understanding and agreement with plan * Telephone Encounter - Markos Singh - 08/30/2024 9:13 AM EST Tc from pt returning call. * Telephone Encounter - Wing Maranda RN - 08/30/2024 8:58 AM EST Tc to pot regarding lab results and referral. Unable to reach, left message to call back. ----- Message from Graciela German MD sent at 08/29/2024 4:54 PM EST ----- Please call. Persistent hematuria. Patient will be referred to urology given her history of kidney stone. documented in this encounter Plan of Treatment Not on file documented as of this encounter Visit Diagnoses Not on filedocumented in this encounter Additional Health Concerns Assessment Noted Time PHQ-9 Depression Total Score: 3 08/08/19 25 12:51 PM EST documented as of this encounter Care Teams Agricultural Economics Teacher Relationship Specialty Start Date End Date Chavez Tinajero MD [address] [place] [address] PCP - General Internal Medicine 12/15/19 documented as of this encounter
--- OUTSIDE RECORDS SUMMARY | 2024-09-13 16:31 | XMS_ITS | Encounter Summary ---
Author Organization [employer] Address [address] [place] [address] 7 [place] [address] Care Team Providers Care Concrete Pump Operator Name Role Phone Chavez Tinajero MD Primary Care Prov ider Reason for Visit * Reason Comments Med Refill Encounter Details Date Type Department Care Team ([facility] Contact Info) Description 09/06/2024 Refill [facility] CHC MED & PEDS [address] [place], [place] [phone] Graciela German MD 505 [place] [address] Acute left-sided low back pain without sciatica Social History Tobacco Use Types Packs/Day Years [...] your housing situation today? I have katheryn natalia 05/02/[address] you li [...] as of this encounter Visit Diagnoses Diagnosis Acute left-sided low back pain without sciatica documented in this encounter Additional Health Concerns Assessment Noted Time PHQ-9 Depression Total Score: 3 08/08/19 25 12:51 PM EST documented as of this encounter Care Teams Concrete Pump Operator Relationship Specialty Start Date End Date Chavez Tinajero MD [address] [place] [address] PCP - General Internal Medicine 12/15/19 documented as of this encounter
--- OUTSIDE RECORDS SUMMARY | 2024-09-13 16:31 | XMS_ITS | Encounter Summary ---
Author Organization [employer] Address [address] [place] [address] 7 [place] [address] Care Team Providers Care Investment Banking Associate Name Role Phone Chavez Tinajero MD Primary Care Prov ider Encounter Details Date Type Department Care Team ([facility] st Contact Info) Description 01/09/2023 Abstract [facility] MED & PEDS [address] [place], [place] [phone] Chavez Tinajero MD 505 [place] [address] Social History Tobacco Use Types Packs/Day Years [...] documented as of this encounter Care Teams Investment Banking Associate Relationship Specialty Start Date End Date Chavez Tinajero MD [address] [place] [address] PCP - General Internal Medicine 12/15/19 documented as of this encounter
--- OUTSIDE RECORDS SUMMARY | 2024-09-13 16:31 | XMS_ITS | Encounter Summary ---
Author Organization [employer] Address 75 [facility] [place] [address] Care Team Providers Care Lean Specialist Name Role Phone Chavez Tinajero MD Primary Care Prov ider Encounter Details Date Type Department Care Team ([facility] st Contact Info) Description 09/09/2022 Telephone [facility] CHC MED & PEDS [address] [place], [place] [phone] Dilma Wade, CRISTOFER [address] [place] [address] Social History Tobacco Use Types Packs/Day Years [...] on filedocumented in this encounter Care Teams Lean Specialist Relationship Specialty Start Date End Date Chavez Tinajero MD [address] [place], [place] [phone] PCP - General Internal Medicine 12/15/19 documented as of this encounter
--- OUTSIDE RECORDS SUMMARY | 2024-09-13 16:32 | XMS_ITS | Encounter Summary ---
Author Organization [employer] Address [address] [place] [address] Care Team Providers Care Mushroom Farmer Name Role Phone Chavez Tinajero MD Primary Care Prov ider Reason for Visit * Reason Onset Date Comments No Show 08/20/2024 Encounter Details Date Type Department Care Team ([facility] Contact Info) Description 08/20/2024 Telephone [facility] CHC MED & PEDS [address] [place], [place] [phone] Chavez Tinajero MD [address] [place] [address] No Show Social History Tobacco Use Types [...] documented as of this encounter Care Teams Mushroom Farmer Relationship Specialty Start Date End Date Chavez Tinajero MD [address] [place] [address] PCP - General Internal Medicine 12/15/19 documented as of this encounter
--- OUTSIDE RECORDS SUMMARY | 2024-09-13 16:32 | XMS_ITS | Clinical Summary ---
Author Organization [employer] Address [address] [place] [address] 7 [place] [address] Care Team Providers Care Hospice Music Therapist Name Role Phone Chavez Tinajero MD Primary Care Prov ider Allergies No known active allergies Medications omeprazole (PriLOSEC) [address] capsule take 1 capsule (20MG) by oral route every day before a meal 9 Active copper (Paragard) IUD Activ e acetaminophen (Tylenol) 500 MG tablet Take 2 tablets by mouth in the morning and 2 tablets at noon and 2 tablets in the evening and 2 tablets before bedtime. 0 Active cyclobenzaprin e (Flexeril) 10 MG tablet Take 1 tablet (10 mg) by mouth 3 times daily for 10 days. 30 tablet 2 4 Active celecoxib (CeleBREX) 200 MG capsuleIndicat ions:Acute left-sided low back pain without sciatica TAKE 1 CAPSULE BY MOUTH 2 TIMES DAILY. 60 capsule 5 Active celecoxib (CeleBREX) 200 MG capsuleIndicat ions:Acute left-sided low back pain without sciatica Take 1 capsule (200 mg) by mouth 2 times daily. 60 capsule 5 09/06/19 25 Discontinued Active Problems Problem Noted Date Diagnosed Date [...] Encounters Date Type Department Care Team Description 09/06/2024 Refill [facility] CHC MED & PEDS [address] [place] [address] Graciela German MD Acute left-sided low back pain without sciatica 08/30/2024 Orders Only [facility] MED & PEDS [address] [place] [address] Chavez Tinajero MD History of kidney stones (Primary Dx) 08/30/2024 Telephone [facility] MED & PEDS [address] [place] [address] Graciela German MD Results 08/29/2024 Orders Only [facility] MED & PEDS [address] [place] [address] Graciela German MD History of kidney stones (Primary Dx) 08/20/2024 Telephone [facility] MED & PEDS [address] [place] [address] Chavez Tianjero MD No Show 08/15/2024 Telephone [facility] MED & PEDS [address] [place] [address] Chavez Tinajero MD 08/14/2024 Orders Only [facility] MED & PEDS [address] [place] [address] Graciela German MD Microscopic hematuria (Primary Dx) 08/08/2024 11:15 AM EST Office Visit [facility] MED & PEDS [address] [place] [address] Graciela German MD Acute left-sided low back pain without sciatica (Primary Dx); Foul smelling urine 08/08/2024 Travel 08/06/2024 Telephone [facility] [address] [place], [place] [phone] Chavez Tinajero MD Nurse Triage from Last 3 Months Immunizations Name Administration [...] Acute left-sided low back pain without sciatica HM MAMMOGRAPHY Routine 10/18/2022 10:46 AM EDT THINPREP IMAGING PAP AND HPV MRNA E6/E7 WITH REFLEX TO HPV 16,18/45 Routine 11/09/2021 12:48 PM EDT [facility] HISTORICAL HEPATITIS C ANTIBODY RFLX Routine 08/09/2019 11:23 AM EST [facility] HISTORICAL HIV AB/AG Routine 08/09/2019 11:23 AM EST from Last 3 Months or Most Recently Relevant to Health Maintenance Results * (ABNORMAL) Urinalysis Complete (08/26/2024 2:00 PM EST) Color Urine Yellow [facility] Appearance Urine Clear [facility] PH 6.5 5.0 - 9.0 [facility] Glucose Urine UA Negative Negative mg/dL [facility] Urine Blood Trace(A) Negative [facility] Specific [place] - Urine 1.020 1.005 - 1.025 [facility] Urine Protein Negative Neg-Trace mg/dL [facility] Urine Ketones Negative Negative mg/dL [facility] Nitrite Urine Negative Negative [facility] Leukocyte Esterase Urine Small (1+)(A) Negative [facility] RBC Urine 3-5(A) 0 - 2 /HPF [facility] Urine WBC 6-10(A) 0 - 5 /HPF [facility] Urine Squamous Epithelial Cell 6-10 0 - 2 /HPF [facility] Urine Bacteria 2+ None Seen [facility] Hyaline Casts, Urine 0-2 0 - 2 /LPF [facility] Urine (Urine, Random) 08/26/2024 2:00 PM EST 08/26/2024 2:08 PM EST us Graciela German MD LAB URINE ORDERABLES Final Result [facility] [address] [place], [place] [phone] * XR Lumbar Spine 2-3 Views (08/10/2024 9:49 AM EST) Anatomical Region Laterality Modality Spine, L-spine Radiographic Zoya ging 08/10/2024 9:49 AM EST Narrative 08/12/2024 9:01 AM EST ? [facility] ?[address] ?[place] [address] ?XRay Report ? Signed ? Patient: Mark MartinezNedra ?MR# ?? : [id number] ? : 1985 ?Acct:[id number] ? Age/Sex: 39 / F ?ADM Date: 08/10/24 ? Loc: HO.XRAY ? Attending Dr: Graciela German MD ? Ordering Physician: Graciela German MD ?? Date of Service: 08/10/24 ?? Procedure(s): XR lumbar spine 2-3V ?? Accession Number(s): [id number] ? cc: Graciela German MD; Chavez Tinajero [...] ?08/12/24 0858 ? DD/ 0949 ? TD/TT: 08/10/2455 ? Admitting Interviewer: ? Procedure Note Claudia, Image - 08/12/2024 [place] [address] XRay Report Signed Patient: Nedra HillMR# : [id number] : 1985Acct:[id number] Age/Sex: 39 / FADM Date: 08/10/24 Loc: OTTO Attending Dr: Graciela German MD Ordering Physician: Graciela German MD Date of Service: 08/10/24 Procedure(s): XR lumbar spine 2-3V Accession Number(s): [id number] cc: Graciela German MD; Chavez Tinajero MD [...] Faustino Price MD 08/12/2024 08:58 AM EST RP Dictated By: Faustino Price MD Signed By: <Electronically signed by Faustino Price MD in OV> 08/12/24 0858 DD/ 0949 TD/TT: 08/10/24 0955 Admitting Interviewer: Graciela German MD IMG XR PROCEDURES Edited [...] clean catch procedure / Unknown 08/08/2024 08/08/2024 Comment:[facility] Narrative [facility] - 08/10/2024 8:58 AM EST Urine Culture No growth. Specimen Source: Urine clean catch us Graciela German MD LAB MICROBIOLOGY - GENERAL ORDERABLES Final Result [facility] [address] [place] [address] [phone] * Hm Mammography (10/18/2022 10:46 AM EDT) Mammogram Bi-rads 2 Anatomical Region Laterality Modality Other Narrative 10/18/2022 10:46 AM EDT Routine annual bilateral mammography, beginning age 40, or earlier as clinical risk factors warrant. Historical Provider HEALTH MAINTENANCE Final Result * THINPREP TIS PAP AND HPV mRNA E6/E7 WITH REFLEX TO HPV 16,18/45 (11/09/2021 12:48 PM EDT) Clinical Information: None given [facility] COMMENT SEE COMMENT [facility] [...] has been evaluated with computer assisted technology. [facility] Shoulder Boner: SEE COMMENT [facility] Comment: YP, CT(ASCP) CT screening location: [address] ??[address] HPV nRNA E6/E7 Not Detected Not Detected [facility] Comment: Methodology: Investigator Cash Shortage-Mediated Amplification This assay detects E6/E7 viral messenger RNA (mRNA) from 14 high-risk HPV types (16,18,31,33,35,39,45,51,52,56,58,59,66,68). ? The analytical performance characteristics of this assay have been determined by [facility]. The modifications have not been cleared or approved by the FDA. This assay has been validated pursuant to the CLIA regulations and is used for clinical purposes. ?? For additional information, please refer to http://education.Retention Science.[employer]/faq/UKP292c0 (This link if provided for information/ educational purposes only.) Interpretation/Re sult: Negative for intraepithelial lesion or malignancy. [facility] LMP: 10/03/21 [facility] Prev. BX: NONE GIVEN [facility] Prev. PAP: 04/2018 [facility] SOURCE: None given [facility] Statement Of Adequacy: SEE COMMENT [facility] Comment: Satisfactory for evaluation. Endocervical/transformation zone component absent. 11/09/2021 12:4 8 PM EDT Sri [facility] LAB PATHOLOGY ORDERABLES Final Result Performing Organization Address [facility] Co de Phone Number [facility] [address] * HEPATITIS C ANTIBODY RFLX (08/09/2019 11:23 AM EST) HEPATITIS C ANTIBODY NONREACTIVE NONREACTIVE [facility] Comment: Antibodies to HCV not detected; does not exclude early acute HCV infection. 08/09/2019 11:2 3 AM EST Historical Provider MD HISTORICAL/NON ORDERABLE LABS Final Result Performing Organization Address [facility] Phone Number [facility] Any[address] * HIV AB/AG (08/09/2019 11:23 AM [...] detection of this assay. ?? [facility] Inspector HIV Ag/Ab Combo assay result and supplemental assay results should be interpreted in conjunction with the patient's clinical presentation, history and other laboratory results. ??If the results are inconsistent with clinical evidence, additional testing is suggested to confirm the result. 08/09/2019 11:2 3 AM EST us Historical Provider HISTORICAL/NON ORDERABLE LABS Final Result [facility] [address] from Last 3 Months or Most Recently Relevant to Health Maintenance Insurance [place] [address] [address] , [address] [place] [address] [facility] Care Teams Hospice Music Therapist Relationship Specialty Start Date End Date Chavez Tinajero MD [address] [place] [address] PCP - General Internal Medicine 12/15/19
--- OUTSIDE RECORDS SUMMARY | 2024-09-13 16:32 | XMS_ITS | Encounter Summary ---
Author Organization [employer] Address [address] [place] [address] [place] [address] Care Team Providers Care Plant Anatomy Teacher Name Role Phone Chavez Tinajero MD Primary Care Prov ider Reason for Referral * Consultation (Routine) - Closed Specialty Diagnoses / Procedures Referred By Contac t Referred To Contact Physical Therapy Diagnoses Acute left-sided low back pain without sciatica Graciela German MD [address] [place] [address] Phone: tel: fax: Physical Therapy, ATI [address] [facility] [address] [place] [address] Phone: tel: fax: Referral ID Status Reason Start Date Expiration Date V isits Requested Visits Authorized [id number] Closed Specialty Services Required 08/08/2024 08/08/2025 1 1 Reason for Visit * Reason Comments Back Pain Encounter Details Date Type Department Care Team ([facility] st Contact Info) Description 08/08/2024 11:15 AM EST Office Visit [facility] CHC MED & PEDS [address] [place] [address] Graciela German MD [address] [place] [address] Acute left-sided low back pain without sciatica [...] EST Narrative 08/12/2024 9:01 AM EST ? [facility] ?[address] ?[place] [address] ?XRay Report ? Signed ? Patient: Nedra Hill ?MR# ?? : [id number] ? : 1985 ?Acct:[id number] ? Age/Sex: 39 / F ?ADM Date: 08/10/24 ? Loc: HO.XRAY ? Attending Dr: Graciela German MD ? Ordering Physician: Graciela German MD ?? Date of Service: 08/10/24 ?? Procedure(s): XR lumbar spine 2-3V ?? Accession Number(s): [id number] ? cc: Graciela German MD; Chavez Tinajero [...] DD/ 0949 ? TD/TT: 08/10/24 0955 ? Finance Effectiveness Manager: ? Procedure Note [place], Image - 08/12/[address] [address] XRay Report Signed Patient: Nedra HillMR# : [id number] : 1985Acct:[id number] Age/Sex: 39 / FADM Date: 08/10/24 Loc: OTTO Attending Dr: Graciela German MD Ordering Physician: Graciela German MD Date of Service: 08/10/24 Procedure(s): XR lumbar spine 2-3V Accession Number(s): [id number] cc: Graciela German MD; Chavez Tinajero MD [...] OV> 08/12/24 0858 DD/ TD/TT: 08/10/24 0955 Finance Effectiveness Manager: us Graciela German MD IMG XR PROCEDURES [...] / Unknown 08/08/2024 08/08/2024 Comment:[facility] Narrative [facility] - 08/10/2024 8:58 AM EST Urine Culture No growth. Specimen Source: Urine clean catch us Graciela German MD LAB MICROBIOLOGY - GENERAL ORDERABLES Final Result [facility] [address] [place] [phone] documented in this encounter Visit Diagnoses Diagnosis Acute left-sided low back pain without sciatica- Primary Foul smelling urine documented in this encounter Additional Health Concerns Assessment Noted Time PHQ-9 Depression Total Score: 3 08/08/19 12:51 PM EST documented as of this encounter Care Teams Plant Anatomy Teacher Relationship Specialty Start Date End Date Chavez Tinajero MD [address] [place] [address] PCP - General Internal Medicine 12/15/19 documented as of this encounter
--- OUTSIDE RECORDS SUMMARY | 2024-09-13 16:32 | XMS_ITS | Encounter Summary ---
Author Organization [employer] Address 75 [facility] 7t [place] [address] Care Team Providers Care Logistics Coordinator Name Role Phone Chavze Tinajero MD Primary Care Prov ider Encounter Details Date Type Department Care Team ([facility] st Contact Info) Description 08/15/2024 Telephone [facility] CHC MED & PEDS [address] [place], [place] [phone] Chavez Tinajero MD [address] [place] [address] Social History Tobacco Use Types Packs/Day Years [...] - 08/15/2024 11:40 AM EST Tc from [facility] received a call from pcp office and is returning the call. documented in this encounter Plan of Treatment Not on file documented as of this encounter Visit Diagnoses Not on filedocumented in this encounter Additional Health Concerns Assessment Noted Time PHQ-9 Depression Total Score: 3 08/08/19 25 12:51 PM EST documented as of this encounter Care Teams Logistics Coordinator Relationship Specialty Start Date End Date Chavez Tinajero MD [address] [place] [address] PCP - General Internal Medicine 12/15/19 documented as of this encounter
--- OUTSIDE RECORDS SUMMARY | 2024-09-13 16:32 | XMS_ITS | Encounter Summary ---
Author Organization [employer] Address 75 [facility] 7t [place] [address] Care Team Providers Care Gasoline Plant Operator Name Role Phone Chavez Tinajero MD Primary Care Prov ider Encounter Details Date Type Department Care Team ([facility] st Contact Info) Description 08/14/2024 Orders Only [facility] CHC MED & PEDS [address] [place], [place] [phone] Graciela German MD [address] [place] [address] Microscopic hematuria (Primary Dx) Social History Tobacco [...] as of this encounter Miscellaneous Notes * Result Encounter Note - Graciela German MD - 08/14/2024 8:56 PM EST Please call. Persistent hematuria. Patient will be [...] (08/26/2024 2:00 PM EST) Color Urine Yellow [facility] Appearance Urine Clear [facility] PH 6.5 5.0 - 9.0 [facility] Glucose Urine UA Negative Negative mg/dL [facility] Urine Blood Trace(A) Negative [facility] Specific [place] - Urine 1.020 1.005 - 1.025 [facility] Urine Protein Negative Neg-Trace mg/dL [facility] Urine Ketones Negative Negative mg/dL [facility] Nitrite Urine Negative Negative [facility] Leukocyte Esterase Urine Small (1+)(A) Negative [facility] RBC Urine 3-5(A) 0 - 2 /HPF [facility] Urine WBC 6-10(A) 0 - 5 /HPF [facility] Urine Squamous Epithelial Cell 6-10 0 - 2 /HPF [facility] Urine Bacteria 2+ None Seen [facility] Hyaline Casts, Urine 0-2 0 - 2 /LPF [facility] Urine (Urine, Random) 08/26/2024 2:00 PM EST 08/26/2024 2:08 PM EST us Graciela German MD LAB URINE ORDERABLES Final Result [facility] [address] [place] [address] [phone] documented in this encounter Visit Diagnoses Diagnosis Microscopic hematuria- Primary documented in this encounter Additional Health Concerns Assessment Noted Time PHQ-9 Depression Total Score: 3 08/08/19 25 12:51 PM EST documented as of this encounter Care Teams Gasoline Plant Operator Relationship Specialty Start Date End Date Chavez Tinajero MD [address] [place] [phone] PCP - General Internal Medicine 12/15/19 documented as of this encounter
== END 2024-09-13 14:22 | disposition home or self-care (01) ==
LOC: HO.US 14:21
PROVIDERS: PCP Internal Medicine; Visit Provider Internal Medicine
DX: Z87.442 Personal history of urinary calculi (principal)
CPT/HCPCS: 76775

== ENCOUNTER → 2024-09-13 14:22 | Outpatient (BNV) | payer OTHER, SELFPAY | PROVIDERS: PCP Internal Medicine; Visit Provider Radiology Diagnostic Radiology | DX: N20.0 Calculus of kidney (principal) | CPT/HCPCS: 76775 ==

== ENCOUNTER 2024-11-08 16:26 | Outpatient (REF) | payer OTHER, SELFPAY ==
--- OUTSIDE RECORDS SUMMARY | 2024-11-08 16:28 | XMS_ITS | Clinical Summary ---
Author Organization [employer] Address [address] [place] [address] 7 [place] [address] Care Team Providers Care Padder Cushion Name Role Phone Chavez Tinajero MD Primary [...] ons:Acute left-sided low back pain without sciatica TAKE 1 CAPSULE BY MOUTH 2 TIMES DAILY. 60 capsule 09/06/2024 Active Active Problems Problem Noted Date Diagnosed Date [...] Encounters Date Type Department Care Team Description 11/06/2024 Telephone [facility] MEDICINE [address] [place] [address] Chavez Tinajero MD Lab Orders 09/06/2024 Refill [facility] CHC MED & PEDS [address] [place] [address] Graciela German MD Acute left-sided low back pain without sciatica 08/30/2024 Orders Only [facility] MED & PEDS [address] [place] [address] Chavez Tinajero MD History of kidney stones (Primary Dx) 08/30/2024 Telephone [facility] MED & PEDS [address] [place] [address] Graciela German MD Results 08/29/2024 Orders Only [facility] MED & PEDS [address] [place] [address] Graciela German MD History of kidney stones (Primary Dx) 08/20/2024 Telephone [facility] MED & PEDS [address] [place] [address] Chavez Tinajero MD No Show 08/15/2024 Telephone [facility] MED & PEDS [address] [place] [address] Chavez Tinajero MD 08/14/2024 Orders Only [facility] MED & PEDS [address] [place] [address] Graciela German MD Microscopic hematuria (Primary Dx) from Last 3 Months Immunizations Name Administration [...] 08/08/2024 11:18 AM EST Plan of Treatment Upcoming Encounters Date Type Department Care Team (Late st Contact Info) Description 01/27/2025 1:45 PM EDT Office Visit [facility] MED & PEDS [address], [place] [phone] Chavez Tinajero MD [address] [place] [address] Health Maintenance Due Date Last Done Comments [...] Procedure Name Priority Date/Time Associated Diagnosis Comments US RENAL BI Routine 09/13/2024 2:29 PM EST History of kidney stones URINALYSIS, COMPLETE Routine 08/26/2024 2:00 PM EST Microscopic hematuria XR LUMBAR SPINE 2-3 VIEWS Routine 08/10/2024 9:49 AM EST Acute left-sided low back pain without sciatica HM MAMMOGRAPHY Routine 10/18/2022 10:46 AM EDT THINPREP IMAGING PAP AND HPV MRNA E6/E7 WITH REFLEX TO HPV 16,18/45 Routine 11/09/2021 12:48 PM EDT ZZZ HISTORICAL HEPATITIS C ANTIBODY RFLX Routine 08/09/2019 11:23 AM EST ZAKIN HISTORICAL HIV AB/AG Routine 08/09/2019 11:23 AM EST from Last 3 Months or Most Recently Relevant to Health Maintenance Results * US RENAL BI (09/13/2024 2:29 PM EST) Anatomical Region Laterality Modality Abdomen Ultrasound 09/13/2024 2:29 PM EST Narrative 09/16/2024 7:31 AM EST ? [facility] ?[address] ?[place] [address] ? Ultrasound Report ? Signed ? Patient: Nedra Hill ?MR# ?? : [id number] ? : 1985 ?Acct:[id number] ? Age/Sex: 39 / F ?ADM Date: 09/13/ ? Loc: HO.US ? Attending Dr: Chavez Estrella MD ? Ordering Physician: Chavez Tinajero MD ?? Date of Service: 09/13/24 ?? Procedure(s): US renal BI ?? Accession Number(s): [id number] ? cc: Chavez Tinajero MD ? EXAMINATION: ??US KIDNEY BILATERAL ? HISTORY: back pain, microscopic hematuria, hx of kidney stones ? TECHNIQUE: Real-time grayscale ultrasound imaging of the kidneys was ?? performed and images were reviewed. ? COMPARISON: Comparison is made with the prior examination dated ?? 06/12/2024. ? FINDINGS: ? Right kidney: ??The right kidney measures 9.9 x 4.1 x 5.2 cm. ??Renal ?? cortical thickness is normal. Again seen is increased echogenicity of ?? the calyces suggestive of medullary nephrocalcinosis. ??There are no ?? masses. ??Multiple nonobstructing calculi are noted measuring up to 6 mm ?? in size. There is no hydronephrosis. ? Left Kidney: ??The left kidney measures 10.2 x 5.7 x 5.2 cm. ??Renal ?? cortical thickness is normal. Again seen is increased echogenicity of ?? the calyces, suggestive of medullary nephrocalcinosis. ??There are no ?? masses. ??Multiple nonobstructing calculi are noted measuring up to 5 mm ?? in size. There is no hydronephrosis. ? US/US renal BI ?? IMPRESSION: ? Findings consistent with medullary nephrocalcinosis. Bilateral ?? nephrolithiasis without hydronephrosis. ? Electronically signed by: ??Faustino Price MD ??09/16/2024 07:28 AM EST ? Dictated By: ?Faustino Price MD ? Signed By: ?<Electronically signed by Faustino Price MD in OV> ?09/16/2428 ? DD/ 1429 ? TD/TT: 09/13/24 1438 ? Injection Molding Supervisor: ? Procedure Note Khushboo Taylor - 09/16/[address] [address] Ultrasound Report Signed Patient: Nedra Hill# : [id number] : 1985Acct:[id number] Age/Sex: 39 / FADM Date: 09/13/24 Loc: HO.US Attending Dr: Chavez Estrella MD Ordering Physician: Chavez Tinajero MD Date of Service: 09/13/24 Procedure(s): US renal BI Accession Number(s): [id number] cc: Chavez Tinajero MD EXAMINATION: US KIDNEY BILATERAL HISTORY: back pain, microscopic hematuria, hx of kidney stones TECHNIQUE: Real-time grayscale ultrasound imaging of the kidneys was performed and images were reviewed. COMPARISON: Comparison is made with the prior examination dated 06/12/2024. FINDINGS: Right kidney: The right kidney measures 9.9 x 4.1 x 5.2 cm. Renal cortical thickness is normal. Again seen is increased echogenicity of the calyces suggestive of medullary nephrocalcinosis. There are no masses. Multiple nonobstructing calculi are noted measuring up to 6 mm in size. There is no hydronephrosis. Left Kidney: The left kidney measures 10.2 x 5.7 x 5.2 cm. Renal cortical thickness is normal. Again seen is increased echogenicity of the calyces, suggestive of medullary nephrocalcinosis. There are no masses. Multiple nonobstructing calculi are noted measuring up to 5 mm in size. There is no hydronephrosis. US/US renal BI IMPRESSION: Findings consistent with medullary nephrocalcinosis. Bilateral nephrolithiasis without hydronephrosis. Electronically signed by: Faustino Price MD 09/16/2024 07:28 AM EST Dictated By: Faustino Price MD Signed By: <Electronically signed by Faustino Price MD in OV> 09/16/24 0728 DD/ 1429 TD/TT: 09/13/24 1438 Injection Molding Supervisor: Chavez Estrella MD [facility] US PROCEDURES Final Result * (ABNORMAL) Urinalysis Complete (08/26/2024 2:00 PM EST) Color Urine Yellow [facility] Appearance Urine Clear [facility] PH 6.5 5.0 - 9.0 [facility] Glucose Urine UA Negative Negative mg/dL [facility] Urine Blood Trace(A) Negative [facility] Specific [place] - Urine 1.020 1.005 - 1.025 [facility] Urine Protein Negative Neg-Trace mg/dL [facility] Urine Ketones Negative Negative mg/dL [facility] Nitrite Urine Negative Negative [facility] Leukocyte Esterase Urine Small (1+)(A) Negative [facility] RBC Urine 3-5(A) 0 - 2 /HPF [facility] Urine WBC 6-10(A) 0 - 5 /HPF [facility] Urine Squamous Epithelial Cell 6-10 0 - 2 /HPF [facility] Urine Bacteria 2+ None Seen [facility] Hyaline Casts, Urine 0-2 0 - 2 /LPF [facility] Urine (Urine, Random) 08/26/2024 2:00 PM EST 08/26/2024 2:08 PM EST us Graciela German MD LAB URINE ORDERABLES Final Result [facility] [address] [place] [address] [phone] * XR Lumbar Spine 2-3 Views (08/10/2024 9:49 AM EST) Anatomical Region Laterality Modality Spine, L-spine Radiographic Zoya ging 08/10/2024 9:49 AM EST Narrative 08/12/2024 9:01 AM EST ? [facility] ?[address] ?[place] [address] ?XRay Report ? Signed ? Patient: Nedra Hill ?MR# ?? : [id number] ? : 1985 ?Acct:[id number] ? Age/Sex: 39 / F ?ADM Date: 01/25/25 ? Loc: HO.XRAY ? Attending Dr: Graciela German MD ? Ordering Physician: Graciela German MD ?? Date of Service: 08/10/24 ?? Procedure(s): XR lumbar spine 2-3V ?? Accession Number(s): [id number] ? cc: Graciela German MD; Chavez Tinajero [...] MD in OV> ?08/12/24 0858 ? DD/ ? TD/TT: 08/10/2455 ? Injection Molding Supervisor: ? Procedure Note Claudia, Khushboo - 08/12/[address] [address] XRay Report Signed Patient: Nedra HillMR# : [id number] : 1985Acct:[id number] Age/Sex: 39 / FADM Date: 08/10/24 Loc: [place] Attending Dr: Graciela German MD Ordering Physician: Graciela German MD Date of Service: 08/10/24 Procedure(s): XR lumbar spine 2-3V Accession Number(s): [id number] cc: Graciela German MD; Chavez Tinajero MD [...] 08/12/24 0858 DD/ 0949 TD/TT: 08/10/24 0955 Injection Molding Supervisor: Graciela German MD IMG XR PROCEDURES Edited Re sult - Final * Mammography (10/18/2022 10:46 AM EDT) Mammogram Bi-rads 2 Anatomical Region Laterality Modality Other Narrative 10/18/2022 10:46 AM EDT Routine annual bilateral mammography, beginning age 40, or earlier as clinical risk factors warrant. Historical Provider HEALTH MAINTENANCE Final Result * THINPREP TIS PAP AND HPV mRNA E6/E7 WITH REFLEX TO HPV 16,18/45 (11/09/2021 12:48 PM EDT) Clinical Information: None given [facility] COMMENT SEE COMMENT [facility] [...] has been evaluated with computer assisted technology. [facility] Threading Machine Feeder Automatic: SEE COMMENT [facility] Comment: YP, CT(ASCP) CT screening location: [address] ??[address] HPV nRNA E6/E7 Not Detected Not Detected [facility] Comment: Methodology: Manager Contracting-Mediated Amplification This assay detects E6/E7 viral messenger RNA (mRNA) from 14 high-risk HPV types (16,18,31,33,35,39,45,51,52,56,58,59,66,68). ? The analytical performance characteristics of this assay have been determined by [employer]. The modifications have not been cleared or approved by the FDA. This assay has been validated pursuant to the CLIA regulations and is used for clinical purposes. ?? For additional information, please refer to http://education.[employer]/faq/IVZ568t4 (This link if provided for information/ educational purposes only.) Interpretation/Re sult: Negative for intraepithelial lesion or malignancy. [facility] LMP: 10/03/21 [facility] Prev. BX: NONE GIVEN [facility] Prev. PAP: 04/2018 [facility] SOURCE: None given [facility] Statement Of Adequacy: SEE COMMENT [facility] Comment: Satisfactory for evaluation. Endocervical/transformation zone component absent. 11/09/2021 12:4 8 PM EDT Sri Ndiaye CNM LAB PATHOLOGY ORDERABLES Final Result Performing Organization Address [facility] Co de Phone Number [facility] [address] [place] [address], * HEPATITIS C ANTIBODY RFLX (08/09/2019 11:23 AM EST) HEPATITIS C ANTIBODY NONREACTIVE NONREACTIVE [facility] Comment: Antibodies to HCV not detected; does not exclude early acute HCV infection. 08/09/2019 11:2 3 AM EST Historical Provider MD HISTORICAL/NON ORDERABLE LABS Final Result Performing Organization Address [facility] Co de Phone Number [facility] [address] [place] [address], * HIV AB/AG (08/09/2019 11:23 AM EST) [facility] Signature HIV AG/AB NONREACTIVE NR [facility] LAB [...] detection of this assay. ?? The [employer] Machine Operator HIV Ag/Ab Combo assay result and supplemental assay results should be interpreted in conjunction with the patient's clinical presentation, history and other laboratory results. ??If the results are inconsistent with clinical evidence, additional testing is suggested to confirm the result. 08/09/2019 11:2 3 AM EST Historical Provider HISTORICAL/NON ORDERABLE LABS Final Result [facility] [address] from Last 3 Months or Most Recently Relevant to Health Maintenance Insurance [facility] Care Teams Padder Cushion Relationship Specialty Start Date End Date Chavez Tinajero MD [address] [place] [phone] PCP - General Internal Medicine 12/15/19
--- OUTSIDE RECORDS SUMMARY | 2024-11-08 16:28 | XMS_ITS | Encounter Summary ---
Author Organization [employer] Address [address] [facility] 7t [place] [address] Care Team Providers Care Take Out Waiter Name Role Phone Chavez Tinajero MD Primary Care Prov ider Encounter Details Date Type Department Care Team ([facility] st Contact Info) Description 08/15/2024 Telephone [facility] CHC MED & PEDS [address] [place], [place] [phone] Chavez Tinajero MD [address] [place] [address] Social History Tobacco Use Types Packs/Day Years [...] 08/15/2024 11:40 AM EST Tc from [facility] received a call from pcp office and is returning the call. documented in this encounter Plan of Treatment Upcoming Encounters Date Type Department Care Team (Late st Contact Info) Description 01/27/2025 1:45 PM EDT Office Visit [facility] MED & PEDS [address] [place] [address] Chavez Tinajero MD [address] [place] [address] documented as of this encounter Visit Diagnoses Not on filedocumented in this encounter Additional Health Concerns Assessment Noted Time PHQ-9 Depression Total Score: 3 08/08/19 25 12:51 PM EST documented as of this encounter Care Teams Take Out Waiter Relationship Specialty Start Date End Date Chavez Tinajero MD [address] [place] [address] PCP - General Internal Medicine 12/15/19 documented as of this encounter
--- OUTSIDE RECORDS SUMMARY | 2024-11-08 16:28 | XMS_ITS | Encounter Summary ---
Author Organization [employer] Address [address] [place] [address] Care Team Providers Care Primary School Teacher Librarian Name Role Phone Chavez Tinajero MD Primary Care Prov ider Reason for Visit * Reason Onset Date Comments Lab Orders 11/06/2024 Encounter Details Date Type Department Care Team ([facility] st Contact Info) Description 11/06/2024 Telephone [facility] MEDICINE [address] [place] [address] Chavez Tinajero MD [address] [place] [address] Lab Orders Social History Tobacco Use Types Packs/Day Years [...] encounter Miscellaneous Notes * Telephone Encounter - Jayashree Keller RN - 11/06/2024 2:31 PM EDT TC to pt. Pt stated needed TB test prior to employment. T-Spot test ordered, advised pt on locations test can be done. Pt stated would go to [facility] for labs. * Telephone Encounter - Glenny Lewis - 11/06/2024 1:56 PM EDT Tc from pt requesting lab order for TB test. Please return call when order is sent as needed soon [phone] documented in this encounter Plan of Treatment Upcoming Encounters Date Type Department Care Team (Late st Contact Info) Description 01/27/2025 1:45 PM EDT Office Visit [facility] CHC MED & PEDS [address] [place] [address] Chavez Tinajero MD [address] [place] [address] Scheduled Orders Name Type Priority Associated Diagnoses Orde r Schedule T-SPOT??.TB Lab Routine Encounter for screening for respiratory tuberculosis Expected: 11/06/2024 (Approximate), Expires: 11/06/2025 documented as of this encounter Visit Diagnoses Diagnosis Encounter for screening for respiratory tuberculosis documented in this encounter Additional Health Concerns Assessment Noted Time PHQ-9 Depression Total Score: 3 08/08/19 25 12:51 PM EST documented as of this encounter Care Teams Primary School Teacher Librarian Relationship Specialty Start Date End Date Chavez Tinajero MD [address] [place] [address] PCP - General Internal Medicine 12/15/19 documented as of this encounter
--- OUTSIDE RECORDS SUMMARY | 2024-11-08 16:28 | XMS_ITS | Encounter Summary ---
Author Organization [employer] Address [address] [place] [address] [address] [place] [address] Care Team Providers Care Cushion Sewer Name Role Phone Chavez Tinajero MD Primary Care Prov ider Encounter Details Date Type Department Care Team ([facility] Contact Info) Description 09/09/2022 Telephone [facility] MED & PEDS [address] [place], [place] [phone] Dilma Wade, CRISTOFER [address] [place] [address] Social History Tobacco Use Types Packs/Day Years [...] as of this encounter Plan of Treatment Upcoming Encounters Date Type Department Care Team ([facility] Contact Info) Description 01/27/2025 1:45 PM EDT Office Visit [facility] MED & PEDS [address] [place], [place] [phone] Chavez Tinajero MD [address] [place] [address] documented as of this encounter Visit Diagnoses Not on filedocumented in this encounter Care Teams Cushion Sewer Relationship Specialty Start Date End Date Chavez Tinajero MD [address] [place] [address] PCP - General Internal Medicine 12/15/19 documented as of this encounter
--- OUTSIDE RECORDS SUMMARY | 2024-11-08 16:28 | XMS_ITS | Clinical Summary ---
Author Organization [facility] Address [address] [place] [address] Care Team Providers Care C Application Developer Name Role Phone Unavailable Primary Care Provider [...]
--- OUTSIDE RECORDS SUMMARY | 2024-11-08 16:28 | XMS_ITS | Encounter Summary ---
Author Organization [employer] Address [address] [place] [address] Care Team Providers Care Secondary Teacher Name Role Phone Chavez Tinajero MD Primary Care Prov ider Reason for Referral * Imaging (Routine) - Closed Specialty Diagnoses / Procedures Referred By Contac t Referred To Contact Radiology Diagnoses History of kidney stones Procedures US RENAL BI Chavez Tinajero MD [address] [place] [address] Phone: tel: fax: [address] Phone: tel: fax: Referral ID Status Reason Start Date Expiration Date Visits Re quested Visits Authorized [id number] Closed 08/30/2024 08/30/2025 1 1 Encounter Details Date Type Department Care Team (Late st Contact Info) Description 08/30/2024 Orders Only [facility] CHC MED & PEDS [address] [place] [address] Chavez Tinajero MD [address] [place], [place] [phone] History of kidney stones (Primary Dx) Social [...] Description 01/27/2025 1:45 PM EDT Office Visit [facility] CHC MED & PEDS [address] [place] [address] Chavez Tinajero MD [address] [place] [address] documented as of this encounter Procedures Procedure Name Priority Date/Time Associated Diagnosis Comments US RENAL BI Routine 09/13/2024 2:29 PM EST History of kidney stones documented in this encounter Results * US RENAL BI (09/13/2024 2:29 PM EST) Anatomical Region Laterality Modality Abdomen Ultrasound 09/13/2024 2:29 PM EST Narrative 09/16/2024 7:31 AM EST ? [facility] ?[address] ?[place], [place] [address] ? Ultrasound Report ? Signed ? Patient: Nedra Hill ?MR# ?? : [id number] ? : 1985 ?Acct:[id number] ? Age/Sex: 39 / F ?ADM Date: 09/13/24 ? Loc: HO.US ? Attending Dr: Chavez Estrella MD ? Ordering Physician: Chavez Tinajero MD ?? Date of Service: 09/13/24 ?? Procedure(s): US renal BI ?? Accession Number(s): [id number] ? cc: Chavez Tinajero MD ? EXAMINATION: [...] ??Faustino Price MD ??09/16/2024 07:28 AM EST ?? RP ? Dictated By: ?Faustino Price MD ? Signed By: ?<Electronically signed by Faustino Price MD in OV> ?09/16/24727 ? DD/ 142 ? TD/TT: 09/13/24 1438 ? Transportation Dispatcher: ? Procedure Note Donotuseinterpreter, Image - 09/16/[address] [address] Ultrasound Report Signed Patient: Nedra HillMR# : [id number] : 1985Acct:[id number] Age/Sex: 39 / FADM Date: 09/13/24 Loc: HO.US Attending Dr: Chavez Estrella MD Ordering Physician: Chavez Tinajero MD Date of Service: 09/13/24 Procedure(s): US renal BI Accession Number(s): [id number] cc: Chavez Tinajero MD EXAMINATION: US KIDNEY [...] 09/16/24 0728 DD/ 1429 TD/TT: 09/13/24 1438 Transportation Dispatcher: us Chavez Estrella MD IMG US PROCEDURES Final Result documented in this encounter Visit Diagnoses Diagnosis History of kidney stones- Primary documented in this encounter Additional Health Concerns Assessment Noted Time PHQ-9 Depression Total Score: 3 08/08/19 25 12:51 PM EST documented as of this encounter Care Teams Secondary Teacher Relationship Specialty Start Date End Date Chavez Tinajero MD [address] [place] [address] PCP - General Internal Medicine 12/15/19 documented as of this encounter
--- OUTSIDE RECORDS SUMMARY | 2024-11-08 16:28 | XMS_ITS | Encounter Summary ---
Author Organization [employer] Address [address] [facility] 7 [place] [address] Care Team Providers Care Direct Marketing Manager Name Role Phone Chavez Tinajero MD Primary Care Prov ider Encounter Details Date Type Department Care Team ([facility] st Contact Info) Description 08/14/2024 Orders Only [facility] CHC MED & PEDS [address] [place], [place] [phone] Graciela German MD [address] [place] [address] Microscopic hematuria (Primary Dx) Social History Tobacco [...] 1:45 PM EDT Office Visit [facility] MED & PEDS [address] [place], [place] [phone] GargChavez Thibodeaux MD [address] [place], [place] [phone] documented as of this encounter Procedures Procedure Name Priority Date/Time Associated Diagnosis Comments URINALYSIS, COMPLETE Routine 08/26/2024 2:00 PM EST Microscopic hematuria documented in this encounter Results * (ABNORMAL) Urinalysis Complete (08/26/2024 2:00 PM EST) Color Urine Yellow [facility] Appearance Urine Clear [facility] PH 6.5 5.0 - 9.0 [facility] Glucose Urine UA Negative Negative mg/dL [facility] Urine Blood Trace(A) Negative [facility] Specific [place] - Urine 1.020 1.005 - 1.025 [facility] Urine Protein Negative Neg-Trace mg/dL [facility] Urine Ketones Negative Negative mg/dL [facility] Nitrite Urine Negative Negative [facility] Leukocyte Esterase Urine Small (1+)(A) Negative [facility] RBC Urine 3-5(A) 0 - 2 /HPF [facility] Urine WBC 6-10(A) 0 - 5 /HPF [facility] Urine Squamous Epithelial Cell 6-10 0 - 2 /HPF [facility] Urine Bacteria 2+ None Seen [facility] Hyaline Casts, Urine 0-2 0 - 2 /LPF [facility] Urine (Urine, Random) 08/26/2024 2:00 PM EST 08/26/2024 2:08 PM EST us Graciela German MD LAB URINE ORDERABLES Final Result Performing Organization Address City/State/[facility] Co de Phone Number [facility] [address] [place] [address] [phone] documented in this encounter Visit Diagnoses Diagnosis Microscopic hematuria- Primary documented in this encounter Additional Health Concerns Assessment Noted Time PHQ-9 Depression Total Score: 3 08/08/19 25 12:51 PM EST documented as of this encounter Care Teams Direct Marketing Manager Relationship Specialty Start Date End Date Chavez Tinajero MD [address] [place] [phone] PCP - General Internal Medicine 12/15/19 documented as of this encounter
--- OUTSIDE RECORDS SUMMARY | 2024-11-08 16:28 | XMS_ITS | Encounter Summary ---
Author Organization [employer] Address [address] [place] [address] Care Team Providers Care Chrome Tanner Name Role Phone Chavez Tinajero MD Primary Care Prov ider Reason for Referral * Consultation (Routine) - Authorized Specialty Diagnoses / Procedures Referred By Theresa zhao Referred To Contact Urology Diagnoses History of kidney stones Graciela German MD [address] [place] [phone] Phone: tel: fax: [facility] [address] [place] [address] Phone: tel: fax: Referral ID Status Reason Start Date Expiration Date Visits Requested Visits Authorized [id number] Authorized Specialty Services Required 08/29/2024 08/29/2025 1 1 Encounter Details Date Type Department Care Team (Late st Contact Info) Description 08/29/2024 Orders Only [facility] CHC MED & PEDS [address] [place] [address] Graciela German MD [address] [place] [address] History of kidney stones (Primary Dx) Social [...] Upcoming Encounters Date Type Department Care Team ([facility] st Contact Info) Description 01/27/2025 1:45 PM EDT Office Visit [facility] MED & PEDS [address] [place] [address] Chavez Tinajero MD [address] [place] [address] Scheduled Referrals Name Type Priority Associated Diagnoses [...] documented as of this encounter Care Teams Chrome Tanner Relationship Specialty Start Date End Date Chavez Tinajero MD [address] [place] [phone] PCP - General Internal Medicine 12/15/19 documented as of this encounter
--- OUTSIDE RECORDS SUMMARY | 2024-11-08 16:28 | XMS_ITS | Encounter Summary ---
Author Organization [employer] Address [address] [facility] 7 [place] [address] Care Team Providers Care Radio Mechanic Name Role Phone Chavez Tinajero MD Primary Care Prov ider Encounter Details Date Type Department Care Team ([facility] Contact Info) Description 01/09/2023 Abstract [facility] CHC MED & PEDS [address] [place], [place] [phone] Chavez Tinajero MD [address] [place] [address] Social History Tobacco Use Types Packs/Day Years [...] Encounters Date Type Department Care Team (Late Contact Info) Description 01/27/2025 1:45 PM EDT Office Visit [facility] CHC MED & PEDS [address] [place] [address] Chavez Tinajero MD [address] [place] [address] documented as of this encounter Procedures Procedure [...] documented as of this encounter Care Teams Radio Mechanic Relationship Specialty Start Date End Date Chavez Tinajero MD [address] [place] [address] PCP - General Internal Medicine 12/15/19 documented as of this encounter
[2024-11-11 18:28] LABS: TS Negative Control Passed; TS Panel A 0; TS Panel B 0; TS Positive Control Passed; TSpotTB Negative (Negative)
== END 2024-11-08 16:27 | disposition home or self-care (01) ==
LOC: HO.LAB 16:26
PROVIDERS: PCP Internal Medicine; Visit Provider Internal Medicine
DX: Z11.1 Encounter for screening for respiratory tuberculosis (principal)
CPT/HCPCS: 36415; 86481

== ENCOUNTER 2025-02-03 08:58 | Outpatient (REF) | payer OTHER, SELFPAY ==
--- OUTSIDE RECORDS SUMMARY | 2025-02-03 09:10 | XMS_ITS | Encounter Summary ---
Author Organization [employer] Address [address] [place] [address] 7 [place] [address] Care Team Providers Care Accounting Professional Name Role Phone Chavez Tinajero MD Primary Care Prov ider Encounter Details Date Type Department Care Team ([facility] Contact Info) Description 01/09/2023 Abstract [facility] CHC MED & PEDS [address] [place], [place] [phone] Chavez Tinajero MD [address] [place] [address] Social History Tobacco Use Types Packs/Day Years [...] Department Care Team (Late Contact Info) Description 03/31/2025 3:30 PM EDT Telemedicine [facility] CHC MED & PEDS [address] [place] [address] Chavez Tinajero MD [address] [place] [address] documented as of this encounter Procedures Procedure [...] documented as of this encounter Care Teams Accounting Professional Relationship Specialty Start Date End Date Chavez Tinajero MD [address] [place] [address] PCP - General Internal Medicine 12/15/19 documented as of this encounter
--- OUTSIDE RECORDS SUMMARY | 2025-02-03 09:10 | XMS_ITS | Clinical Summary ---
Author Organization [facility] Address [address] [place] [address] Care Team Providers Care Automotive Electrician Name Role Phone Unavailable Primary Care Provider [...] (P ap Smear) 2007 Influenza Vaccine (#1) 2025 Pneumococcal Vaccine Aged Out No long er eligible based on patient's age to complete this topic RSV Ped < 20 months Aged Out No longe r eligible based on patient's age to complete this topic
[2025-02-03 14:08] LABS: MANUAL DIFF FLAG NO
[2025-02-03 14:15] LABS: Hematocrit 38.2 % (37.0-47.0); Hemoglobin 12.5 g/dl (12.0-16.0); Imm Gran Abs Auto 0.01 X10*3/uL (0.00-0.03); Imm Gran Pct Auto 0.2 % (0.0-0.4); Lymphocytes Absolute Auto 1.3 X10*3/uL (1.2-4.9); Mean Corpuscular HGB Conc 32.7 g/dl (31.0-35.0); Mean Corpuscular Hemoglobin 28.2 pg (27.0-33.0); Mean Corpuscular Volume 86.2 fL (80.0-98.0); NRBC Abs Auto 0.000 X10*3/uL (0.0-0.012); NRBC Pct Auto 0.0 /100WBC (0.0-0.2); Platelet Count 368 X10*3/uL (160-400); Red Blood Count 4.43 X10*6/uL (4.20-5.50); White Blood Count 6.0 X10*3/uL (4.8-10.8)
[2025-02-03 14:29] LABS: Alanine Aminotransferase 14 U/L (0-31); Albumin Level 4.4 g/dL (3.5-5.0); Alkaline Phosphatase 48 U/L (39-117); Anion Gap 11 (12-20); Aspartate Amino Transferase 19 U/L (5-31); Blood Urea Nitrogen 16 mg/dL (9-16); Calcium 9.1 mg/dL (8.4-10.2); Carbon Dioxide 26 mmol/L (22-29); Chloride 108 mmol/L (96-108); Cholesterol 160 mg/dL (<200); Estimated Glomerular Filt Rate > 60; HDL Cholesterol 54 mg/dL (>40); Potassium 4.7 mmol/L (3.3-5.1); Sodium 140 mmol/L (135-145); Total Protein 7.8 g/dL (6.5-8.0); Triglycerides 83 mg/dL (<150)
[2025-02-03 14:42] LABS: Hemoglobin A1C 168.2799 umol/L; Total Hemoglobin (HGBA1C) 4355.0433 umol/L
== END 2025-02-03 08:59 | disposition home or self-care (01) ==
LOC: HO.CHCLDS 08:58
PROVIDERS: Visit Provider Internal Medicine
DX: Z13.1 Encounter for screening for diabetes mellitus (principal); Z13.6 Encounter for screening for cardiovascular disorders; Z87.442 Personal history of urinary calculi
CPT/HCPCS: 36415; 80053; 80061; 83036; 84443; 85025

== ENCOUNTER 2025-02-13 13:19 | Outpatient (REF) | payer OTHER, SELFPAY ==
--- NOTE | ~2025-02-13 | US_ITS ---
CLINICAL HISTORY: N20.0 - Calculus of kidney US Renal Comparison: 06/12/2024 Findings: Right kidney normal size and echotexture, 11.1 cm length. Left kidney normal size and echotexture, 10.7 cm length. There are bilateral renal parenchymal calculi. No hydronephrosis of either kidney. Normal color Doppler IMPRESSION: 1. No acute findings. Nonobstructing renal parenchymal calculi. This document has been electronically signed by: Romel Dunham MD on 02/14/2025 09:02:46
--- OUTSIDE RECORDS SUMMARY | 2025-02-13 13:30 | XMS_ITS | Clinical Summary ---
Author Organization [facility] Address [address] [place] [address] Care Team Providers Care Hydro Technician Name Role Phone Unavailable Primary Care Provider [...]
== END 2025-02-13 13:20 | disposition home or self-care (01) ==
LOC: HO.US 13:19
PROVIDERS: PCP Internal Medicine; Visit Provider Nurse Practitioner Family
DX: N20.0 Calculus of kidney (principal)
CPT/HCPCS: 76775

== ENCOUNTER → 2025-02-13 13:20 | Outpatient (BNV) | payer OTHER, SELFPAY | PROVIDERS: PCP Internal Medicine; Visit Provider Specialist | DX: N20.0 Calculus of kidney (principal) | CPT/HCPCS: 76775 ==

== ENCOUNTER 2025-03-13 14:35 | Outpatient (AMB) | payer OTHER, SELFPAY ==
--- NOTE | 2025-03-13 14:43 | MHC.OFFVIS ---
Intake Visit Reasons: US FOLLOW UP Intake Note: Patient is present for US F/U Urology Medication:NONE Antibiotic Allergy:VANCOMYCIN Blood Thinner:NONE Solid Waste Landfill Technician Required: No Allergies vancomycin (VANCOMYCIN) Allergy (Intermediate, Verified 03/13/25 16:04) ITCHING/REDNESS (RED KIRSTIN SYNDROME), itching Medication List - Last Reconciled 03/13/25 by COLETTE Segal No Known Home Meds HPI Comments Details: Nedra is a 40-year-old female patient of Dr.Betancourt Estrella who was accompanied by her mom at today's office visit. She presents to the office today for follow-up of her nephrolithiasis. In discussion with the patient today she reports having followed up with her PCP most recently over the last 3 months has she has been experiencing menorrhagia, abdominal cramping/pain, and bilateral flank pain at which time a renal ultrasound was ordered due to patient's history of nephrolithiasis. These results were reviewed and communicated with the patient today. 02/07 bilateral kidneys are normal in size and echotexture. There are bilateral renal parenchymal calculi otherwise no hydronephrosis noted bilaterally. She reports over the last 2-3 months she has been having episodes of abnormal vaginal bleeding. She discusses having an upcoming appointment today at 3:30 for a pelvic ultrasound. She is currently on her menses. She does have a history of nephrolithiasis requiring surgical intervention in the past with Dr. Pereira. In office urinalysis results reviewed with the patient today negative leukocytes, negative nitrates, 3+ microscopic hematuria. We did discussed potential causes of microscopic hematuria, abdominal discomfort, and bilateral flank pain. We did discussed importance of adequate hydration relation to nephrolithiasis as well as overall health and well-being. She does report issues with her bowels. She reports at times she has diarrhea however other times she has constipation. She denies urinary urgency, urinary frequency, incontinence, nocturia, hematuria, dysuria, foul smelling urine, changes to urinary stream, fever, and or chills. We did discuss further workup of nephrolithiasis to include Litholink and labs. All questions were answered. She otherwise offers no other issues or concerns at this time PREVIOUS OFFICE NOTE: Nephrolithiasis Recurrent stone former Presentation 01/06 via emergency department Distal left ureteric stone Underwent ureteroscopy Stone intervention - 01/06 left [facility] Imaging - 01/06 CT distal left ureteric stone bilateral punctate stones Stone composition - 01/06 calcium oxalate monohydrate 80% Investigations - 01/06 calcium 9.5, prior low vitamin-D [facility] [place] [facility] History Arrhythmia Kidney stones Surgical History History of tonsillectomy H/O lithotripsy History of surgery Hx of cholecystectomy Social History Household Members: Family Housing: House Do you presently have visiting nurse or other home services: No Alcohol intake: current Alcohol intake frequency: holidays/special occasions only Patient Tobacco Use Status: Never used Tobacco Current occupational status: employed 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 Review of Systems Const All systems reviewed & are unremarkable except as noted in HPI and below Physical Exam Const General: cooperative, healthy appearing, comfortable, no acute distress, well developed, alert and awake Nutritional Appearance: overweight Orientation/consciousness: patient oriented x3 Limitations: no limitations HEENT Head: Yes normal to inspection, Yes normocephalic and Yes atraumatic Ears: hearing grossly normal bilaterally Eyes General: appearance normal, both eyes and all related structures Neck Neck: Yes normal visual inspection and Yes trachea midline Chest Chest palpation & inspection: normal inspection of the chest Resp Effort & Inspection: normal respiratory effort and able to speak in complete sentences Cardio Rate: regular rate GI Inspection: Yes normal to inspection General: Yes no CVA tenderness Back/Spine/Pelvis Back: no CVA tenderness Skin General skin exam: no rashes or lesions noted Neuro General: patient oriented x3 Extrem General: Yes normal to inspection Psych Appearance: grossly normal and well kempt Mental Status: mental status grossly normal Speech and movement: Normal speech and movement present and Clear speech present Affect: normal affect Attitude: cooperative Thought process: Normal thought process present Thought content: Normal thought content present Insight: Fair insight present (Psych) Judgement: Fair judgement present (Psych) Results AMB Urinalysis, Automated UA Leukoctes 0 Tim/uL Last Edit by SHELLEY Orr on 03/13/25 15:22 UA Nitrite Negative Last Edit by SHELLEY Orr on 03/13/25 15:22 UA Urobilinogen 0.2 mg/dL Last Edit by Calderon Licea [facility] on 03/13/25 15:22 UA Protein 0 mg/dL Last Edit by Calderon Licea [facility] on 03/13/25 15:22 UA pH 6.0 Last Edit by Calderon Licea [facility] on 03/13/25 15:22 UA Blood 200 Haroldo/uL Last Edit by Calderon Licea [facility] on 03/13/25 15:22 UA Specific [place] 1.005 Last Edit by Calderon Licea [facility] on 03/13/25 15:22 UA Ketone Negative Last Edit by Calderon Licea [facility] on 03/13/25 15:22 UA Bilirubin 0 mg/dL Last Edit by Calderon Licea [facility] on 03/13/25 15:22 UA Glucose 0 mg/dL Last Edit by Calderon iLcea [facility] on 03/13/25 15:22 Results Reviewed Results Reviewed: Laboratory Last Values Urine pH (Auto) 6.0 03/13/25 15:22 Specific [place] (Auto) 1.005 03/13/25 15:22 Urine Protein (Auto) 0 mg/dL 03/13/25 15:22 Glucose (UA)(Auto) 0 mg/dL 03/13/25 15:22 Urine Ketones (Auto) Negative 03/13/25 15:22 Urine Blood (Auto) 200 Haroldo/uL 03/13/25 15:22 Urine Nitrite (Auto) Negative 03/13/25 15:22 Urine Bilirubin (Auto) 0 mg/dL 03/13/25 15:22 Urine Urobilinogen (Auto) 0.2 mg/dL 03/13/25 15:22 Leukocyte Esterase (Auto) 0 Tim/uL 03/13/25 15:22 Date of Service: 02/13/25 Procedure(s): US renal BI US Renal Comparison: 06/12/2024 Findings: Right kidney normal size and echotexture, 11.1 cm length. Left kidney normal size and echotexture, 10.7 cm length. There are bilateral renal parenchymal calculi. No hydronephrosis of either kidney. Normal color Doppler IMPRESSION: 1. No acute findings. Nonobstructing renal parenchymal calculi. Assessment & Plan Assessment & Plan (1) Nephrolithiasis: Code(s): N20.0 - Calculus of kidney Category: Medical Plan In office urinalysis results reviewed with the patient today; as noted above; will send for urine cytology. Most recent renal imaging results reviewed with the patient today; as noted above. We did discussed potential causes of abdominal discomfort, flank pain, and menorrhagia. Will refer to theater education teacher for further assessment evaluation. We did discussed correlation of bowel issues in relation to lower urinary tract symptoms. We did discussed further metabolic workup of nephrolithiasis to include Litholink and labs We discussed the importance of adequate hydration relation to nephrolithiasis We discussed adding 1 oz of lemon juice to water daily. All questions were answered. Follow-up in 3-4 months; or sooner with any issues, concerns, and or questions. Orders: Orders Urine Cytology Today R31.29 - Other microscopic hematuria AMB Urinalysis Automated Today Z13.9 - Encounter for screening, unspecified Referrals DIRECTOR EPIDEMIOLOGY Referral N92.0 - Excessive and frequent menstruation with regular cycle Patient Instructions: The patient had an opportunity to ask questions regarding the treatment plan. All questions were answered. Physical exam, labs, and imaging were discussed and reviewed in detail. As well as risks, benefits, and discussion of treatment choices. No major barriers to understanding were identified. The patient expressed understanding and agreement with the above treatment plan. The patient was made aware they should contact our office by phone for worsening of their current condition, the appearance of new symptoms, or with any questions or concerns. Compliance is encouraged with any medications and follow up testing that is ordered. It is a privilege to be allowed the opportunity to participate in? your urological care.? Again, if you have any questions or concerns If you have any questions or concerns please do not hesitate to contact me. The office is [phone]. This note is constructed using voice recognition software. While every effort has been made to ensure accuracy seedling puller errors may have been included. Yours sincerely, COLETTE Segal Coding Level of Care Code Est Pt Level 3 (05090) Diagnoses Nephrolithiasis N20.0
--- OUTSIDE RECORDS SUMMARY | 2025-03-13 15:13 | XMS_ITS | Encounter Summary ---
Author Organization [employer] Address [address] [facility] 7 [place] [address] Care Team Providers Care Armed Guard Name Role Phone Chavez Tinajero MD Primary Care Prov ider Encounter Details Date Type Department Care Team ([facility] st Contact Info) Description 08/15/2024 Telephone [facility] CHC MED & PEDS [address] [place], [place] [phone] Chavez Tinajero MD [address] [place] [address] Social History Tobacco Use Types Packs/Day Years [...] - 08/15/2024 11:40 AM EST [facility] from [facility] received a call from pcp office and is returning the call. documented in this encounter Plan of Treatment Upcoming Encounters Date Type Department Care Team (Late st Contact Info) Description 03/31/2025 3:30 PM EDT Telemedicine [facility] MED & PEDS [address] [place] [address] Chavez Tinajero MD [address] [place] [address] documented as of this encounter Visit Diagnoses Not on filedocumented in this encounter Additional Health Concerns Assessment Noted Time PHQ-9 Depression Total Score: 3 08/08/19 25 12:51 PM EST documented as of this encounter Care Teams Armed Guard Relationship Specialty Start Date End Date Chavez Tinajero MD [address] [place] [address] PCP - General Internal Medicine 12/15/19 documented as of this encounter
--- OUTSIDE RECORDS SUMMARY | 2025-03-13 15:13 | XMS_ITS | Encounter Summary ---
Author Organization [employer] Address [address] [place] [address] Care Team Providers Care Machine Setup Operator Name Role Phone Chavez Tinajero MD Primary Care Prov ider Reason for Visit * Reason Onset Date Comments Med Refill 02/28/2025 Encounter Details Date Type Department Care Team ([facility] st Contact Info) Description 02/28/2025 Refill [facility] CHC MED & PEDS [address] [place], [place] [phone] Chavez Tinajero MD [address] [place] [address] Class 2 obesity due to excess calories without serious comorbidity with body mass index (BMI) of 35.0 to 35.9 in adult Social History Tobacco Use Types Packs/Day Years [...] housing situation today? I have katheryn fisher 01/20/[address] you li ve. Do you have problems with any of the following? None of the above 01/20/2025 Food Insecurity Answer Date Recorded Within the past 12 months, y ou worried that your food would run out before you got money to buy more: Never True 01/20/2025 Within the past 12 months,th e food you bought just didn't last and you didn't have enough money to get more: Never True 01/2025 Transportation Answer Date Recorded In the past 12 months, has l ack of transportation kept you from medical appts, meetings, work or from getting things needed for daily living? No 01/20/2025 Utilities Answer Date Recorded In the past 12 months, has t he electric, gas, oil or water company threatened to shut off services in your home? No 01/20/2025 Depression Answer Date Recorded Patient Health Questionnaire-2 Score 2 08/08/2024 Internet Access Answer Date Recorded Internet Access Q1 Yes 01/20/2025 Internet Access Q2 Not on file 01/20/2025 Comments Unknown Sex and Gender Information Value Date Recorded Sex Assigned at Female 05/16/2022 10:19 AM EDT Legal Sex Female 10:19 AM EDT Gender Identity Female 05/16/2022 10:19 AM EDT Sexual Orientation Straight 05/16/2022 10 :19 AM EDT documented as of this encounter Plan of Treatment Upcoming Encounters Date Type Department Care Team (Late st Contact Info) Description 03/31/2025 3:30 PM EDT Telemedicine [facility] MED & PEDS [address] [place] [address] Chavez Tinajero MD [address] [place] [address] documented as of this encounter Visit Diagnoses Diagnosis Class 2 obesity due to excess calories without serious comorbidity with body mass index (BMI) of 35.0 to 35.9 in adult documented in this encounter Additional Health Concerns Assessment Noted Time PHQ-9 Depression Total Score: 3 08/08/19 25 12:51 PM EST documented as of this encounter Care Teams Machine Setup Operator Relationship Specialty Start Date End Date Chavez Tinajero MD [address] [place] [address] PCP - General Internal Medicine 12/15/19 documented as of this encounter
--- OUTSIDE RECORDS SUMMARY | 2025-03-13 15:13 | XMS_ITS | Encounter Summary ---
Author Organization [employer] Address [address] [place] [address] Care Team Providers Care Irrigator Head Name Role Phone Chavez Tinajero MD Primary Care Prov ider Reason for Referral * Imaging (Routine) - Closed Specialty Diagnoses / Procedures Referred By Contac t Referred To Contact Radiology Diagnoses History of kidney stones Procedures US RENAL BI Chavez Tinajero MD [address] [place] [address] Phone: tel: fax: [address] Phone: tel: fax: Referral ID Status Reason Start Date Expiration Date Visits Re quested Visits Authorized [id number] Closed 08/30/2024 08/30/2025 1 1 Encounter Details Date Type Department Care Team (Late st Contact Info) Description 08/30/2024 Orders Only [facility] MED [facility] PEDS [address] [place] [address] Chavez Tinajero MD [address] [place], [place] [phone] History of kidney stones (Primary Dx) Social [...] Info) Description 03/31/2025 3:30 PM EDT Telemedicine [facility]ED[facility] [address] [place] [address] Chavez Tinajero MD [address] [place] [address] documented as of this encounter Procedures Procedure Name Priority Date/Time Associated Diagnosis Comments US RENAL BI Routine 09/13/2024 2:29 PM EST History of kidney stones documented in this encounter Results * US RENAL BI (09/13/2024 2:29 PM EST) Anatomical Region Laterality Modality Abdomen Ultrasound 09/13/2024 2:29 PM EST Narrative 09/16/2024 7:31 AM EST [address] [address] Ultrasound Report Signed Patient: Nedra Hill MR# : [id number] : 1985 Acct:[id number] Age/Sex: 39 / F ADM Date: 09/13/24 Loc: HO.US Attending Dr: Chavez Estrella MD Ordering Physician: Chavez Tinajero MD Date of Service: 09/13/24 Procedure(s): US renal BI Accession Number(s): [id number] cc: Chavez Tinajero MD EXAMINATION: US KIDNEY [...] signed by Faustino Price MD in OV> 09/16/24727 DD/ 1429 TD/TT: 09/13/24 1438 Customs Entry Clerk: Procedure Note Donotuseinterpreter, Image - 09/16/[address] [address] Ultrasound Report Signed Patient: Nedra HillMR# : [id number] : 1985Acct:[id number] Age/Sex: 39 / FADM Date: 09/13/24 Loc: HO.US Attending Dr: Chavez Estrella MD Ordering Physician: Chavez Tinajero MD Date of Service: 09/13/24 Procedure(s): US renal BI Accession Number(s): [id number] cc: Chavez Tinajero MD EXAMINATION: US KIDNEY [...] by: Faustino Price MD 09/16/2024 07:28 AM [facility] Dictated By: Faustino Price MD Signed By: <Electronically signed by Faustino Price MD in OV> 09/16/24727 DD/ 1429 TD/TT: 09/13/24 1438 Customs Entry Clerk: Chavez Estrella MD IM US PROCEDURES Final Result documented in this encounter Visit Diagnoses Diagnosis History of kidney stones- Primary documented in this encounter Additional Health Concerns Assessment Noted Time PHQ-9 Depression Total Score: 3 08/08/19 25 12:51 PM EST documented as of this encounter Care Teams Irrigator Head Relationship Specialty Start Date End Date Chavez Tinajero MD [address] [place] [address] PCP - General Internal Medicine 12/15/19 documented as of this encounter
--- OUTSIDE RECORDS SUMMARY | 2025-03-13 15:13 | XMS_ITS | Encounter Summary ---
Author Organization [employer] Address [address] [place] [address] 7 [place] [address] Care Team Providers Care Handstitching Machine Collar Feller Name Role Phone Chavez Tinajero MD Primary Care Prov ider Encounter Details Date Type Department Care Team ([facility] st Contact Info) Description 08/14/2024 Orders Only [facility] MED & PEDS [address] [place], [place] [phone] Graciela German MD [address] [place] [address] Microscopic hematuria (Primary Dx) Social History Tobacco [...] Info) Description 03/31/2025 3:30 PM EDT Telemedicine [facility] MED & PEDS [address] [place], [place] [phone] GargChavez Thibodeaux MD [address] [place], [place] [phone] documented as of this encounter Procedures Procedure Name Priority Date/Time Associated Diagnosis Comments URINALYSIS, COMPLETE Routine 08/26/2024 2:00 PM EST Microscopic hematuria documented in this encounter Results * (ABNORMAL) Urinalysis Complete (08/26/2024 2:00 PM EST) Color Urine Yellow [facility] Appearance Urine Clear [facility] PH 6.5 5.0 - 9.0 [facility] Glucose Urine UA Negative Negative mg/dL [facility] Urine Blood Trace(A) Negative [facility] Specific [place] - Urine 1.020 1.005 - 1.025 [facility] Urine Protein Negative Neg-Trace mg/dL [facility] Urine Ketones Negative Negative mg/dL [facility] Nitrite Urine Negative Negative [facility] Leukocyte Esterase Urine Small (1+)(A) Negative [facility] RBC Urine 3-5(A) 0 - 2 /HPF [facility] Urine WBC 6-10(A) 0 - 5 /HPF [facility] Urine Squamous Epithelial Cell 6-10 0 - 2 /HPF [facility] Urine Bacteria 2+ None Seen [facility] Hyaline Casts, Urine 0-2 0 - 2 /LPF [facility] Urine (Urine, Random) 08/26/2024 2:00 PM EST 08/26/2024 2:08 PM EST us Graciela German MD LAB URINE ORDERABLES Final Result Performing Organization Address City/State/[facility] Co de Phone Number [facility] [address] [place] [address] [phone] documented in this encounter Visit Diagnoses Diagnosis Microscopic hematuria- Primary documented in this encounter Additional Health Concerns Assessment Noted Time PHQ-9 Depression Total Score: 3 08/08/19 25 12:51 PM EST documented as of this encounter Care Teams Handstitching Machine Collar Feller Relationship Specialty Start Date End Date Chavez Tinajero MD [address] [place] [address] PCP - General Internal Medicine 12/15/19 documented as of this encounter
--- OUTSIDE RECORDS SUMMARY | 2025-03-13 15:13 | XMS_ITS | Encounter Summary ---
Author Organization [employer] Address [address] [place] [address] Care Team Providers Care Artificial Flowers Supervisor Name Role Phone Chavez Tinajero MD Primary Care Prov ider Encounter Details Date Type Department Care Team ([facility] Contact Info) Description 09/09/2022 Telephone [facility] MED & PEDS [address] [place], [place] [phone] Dilma Wade RN [address] [place] [phone] Social History Tobacco Use Types Packs/Day Years [...] Upcoming Encounters Date Type Department Care Team ([facility] Contact Info) Description 03/31/2025 3:30 PM EDT Telemedicine [facility] MED & PEDS [address] [place], [place] [phone] Chavez Tinajero MD [address] [place] [address] documented as of this encounter Visit Diagnoses Not on filedocumented in this encounter Care Teams Artificial Flowers Supervisor Relationship Specialty Start Date End Date Chavez Tinajero MD [address] [place] [address] PCP - General Internal Medicine 12/15/19 documented as of this encounter
--- OUTSIDE RECORDS SUMMARY | 2025-03-13 15:13 | XMS_ITS | Encounter Summary ---
Author Organization [employer] Address [address] [place] [address] [address] [place] [address] Care Team Providers Care Director Of Catering Sales Name Role Phone Chavez Tinajero MD Primary Care Prov ider Encounter Details Date Type Department Care Team ([facility] Contact Info) Description 01/09/2023 Abstract [facility] CHC MED & PEDS [address] [place], [place] [phone] Chavez Tinajero MD [address] [place] [address] Social History Tobacco Use Types Packs/Day Years [...] Info) Description 03/31/2025 3:30 PM EDT Telemedicine [facility] CH[facility] MED & PEDS [address] [place] [address] Chavez Tinajero MD [address] [place] [address] documented as of this encounter Procedures Procedure [...] documented as of this encounter Care Teams Director Of Catering Sales Relationship Specialty Start Date End Date Chavez Tinajero MD [address] [place] [address] PCP - General Internal Medicine 12/15/19 documented as of this encounter
--- OUTSIDE RECORDS SUMMARY | 2025-03-13 15:13 | XMS_ITS | Encounter Summary ---
Author Organization [employer] Address [address] [place] [address] Care Team Providers Care Research Aide Name Role Phone Chavez Tinajero MD Primary Care Prov ider Reason for Referral * Imaging (Routine) - Authorized Specialty Diagnoses / Procedures Referred By Contac t Referred To Contact Radiology Diagnoses Pelvic pain Procedures US Pelvis Transvaginal Chavez Tinajero MD [address] [place] [address] Phone: tel: fax: [address] Phone: tel: fax: Referral ID Status Reason Start Date Expiration Date V isits Requested Visits Authorized [id number] Authorized 03/10/2025 03/10/2026 1 1 * Imaging (Routine) - Authorized Specialty Diagnoses / Procedures Referred By Contac t Referred To Contact Radiology Diagnoses Pelvic pain Procedures Us Pelvis complete Chavez Tinajero MD [address] [place] [address] Phone: tel: fax: [address] Phone: tel: fax: Referral ID Status Reason Start Date Expiration Date V isits Requested Visits Authorized [id number] Authorized 03/10/2025 03/10/2026 1 1 Encounter Details Date Type Department Care Team (Late st Contact Info) Description 03/10/2025 Orders Only [facility] MED & PEDS [address] [place] [address] Chavez Tinajero MD [address] [place] [address] Pelvic pain (Primary Dx) Social History Tobacco Use Types [...] 03/31/2025 3:30 PM EDT Telemedicine [facility] MED & PEDS [address] [place] [address] Chavez Tinajero MD [address] [place] [address] Scheduled Orders Name Type Priority Associated Diagnoses Orde r Schedule Us Pelvis complete Imaging Routine Pelvic pain Expected: 03/10/2025, Expires: 03/10/2026 US Pelvis Transvaginal Imaging Routine Pelvic pain Expected: 03/10/2025, Expires: 03/10/2026 documented as of this encounter Visit Diagnoses Diagnosis Pelvic pain- Primary documented in this encounter Additional Health Concerns Assessment Noted Time PHQ-9 Depression Total Score: 3 08/08/19 25 12:51 PM EST documented as of this encounter Care Teams Research Aide Relationship Specialty Start Date End Date Chavez Tinajero MD [address] [place] [address] PCP - General Internal Medicine 12/15/19 documented as of this encounter
--- OUTSIDE RECORDS SUMMARY | 2025-03-13 15:13 | XMS_ITS | Clinical Summary ---
Author Organization [employer] Address [address] [place] [address] 7 [place] [address] Care Team Providers Care Client Services Director Name Role Phone Chavez Tinajero MD Primary Care Prov ider Allergies No known active allergies Medications omeprazole (PriLOSEC) [address] capsule take 1 capsule (20MG) by oral route every day before a meal 08/17/19 19 Active copper (Paragard) IUD Activ e acetaminophen (Tylenol) 500 MG tablet Take 2 tablets by mouth in the morning and 2 tablets at noon and 2 tablets in the evening and 2 tablets before bedtime. 10/03/19 20 Active celecoxib (CeleBREX) 200 MG capsuleIndicati ons:Acute left-sided low back pain without sciatica TAKE 1 CAPSULE BY MOUTH 2 TIMES DAILY. 60 capsule 09/06/19 25 Active topiramate (Topamax) 50 MG tablet Take 1 tablet (50 mg) by mouth Once per day. 60 tablet 1 01/28/20 25 025 Active phentermine 15 MG capsuleIndicati ons:Class 2 obesity due to excess calories without serious comorbidity with body mass index (BMI) of 35.0 to 35.9 in adult TAKE 1 CAPSULE BY MOUTH BEFORE BREAKFAST 30 capsule 03/03/20 25 Active phentermine 15 MG capsuleIndicati ons:Class 2 obesity due to excess calories without serious comorbidity with body mass index (BMI) of 35.0 to 35.9 in adult Take 1 capsule (15 mg) by mouth before breakfast. 30 capsule 01/28/20 25 025 Discontinued Active Problems Problem Noted Date Diagnosed Date Class 2 obesity due to exces s calories without serious comorbidity with body mass index (BMI) of 35.0 to 35.9 in adult 01/27/2025 Assessment & Plan (01/27/2025 3:04 PM EDT): Will start on phentermine and topamax, follow up in 2 months Hematuria 01/27/2025 Pelvic pain 01/27/2025 Interstitial cystitis 01/27/2025 Assessment & Plan (01/27/2025 3:07 PM EDT): Provided with a list of food to avoid, call back if not improving Neck pain 10/18/2023 Assessment & Plan (11/24/2023 [...] of kidney stones 01/10/2023 Assessment & Plan (01/27/2025 2:58 PM EDT): Missed last urology appointment, she will reschedule, follow up urology reccomendations Assessment & Plan (04/17/2023 4:32 PM EDT): [...] Encounters Date Type Department Care Team Description 03/10/2025 Orders Only [facility] [address] [place] [address] Chavez Tinajero MD Pelvic pain (Primary Dx) 03/10/2025 Telephone [facility] [address] [place] [address] Chavez Tinajero MD 02/28/2025 Refill [facility] [address] [place] [address] Chavez Tinajero MD Class 2 obesity due to excess calories without serious comorbidity with body mass index (BMI) of 35.0 to 35.9 in adult 02/25/2025 Refill [facility] [address] [place] [address] Chavez Tinajero MD Class 2 obesity due to excess calories without serious comorbidity with body mass index (BMI) of 35.0 to 35.9 in adult 02/17/2025 Telephone [facility] [address] [place] [address] Chavez Tinajero MD Prior Authorization 02/13/2025 Orders Only [facility] External Provider, [facility] 01/27/2025 1:45 PM EDT Office Visit [facility] [address] [place] [address] Chavez Tinajero MD Encounter for screening mammogram for malignant neoplasm of breast (Primary Dx); Hematuria, unspecified type; History of kidney stones; Class 2 obesity due to excess calories without serious comorbidity with body mass index (BMI) of 35.0 to 35.9 in adult; Pelvic pain; Interstitial cystitis 01/27/2025 Travel 01/20/2025 Patient Outreach [facility] [address] [place] [address] Chavez Tinajero MD Pre-visit Planning (SDOH screening negative and Tobacco screening negative) from Last 3 Months Immunizations Immunization Administration Dates Next Due Hep B, adult [...] Sign Reading Time Taken Comments Blood Pressure 121/68 01/27/2025 1:56 PM EDT Pulse 68 01/27/2025 1:56 PM EDT Temperature 37.1 C (98.7 F) 01/27/2025 1:56 PM EDT Respiratory Rate 16 01/27/2025 1:56 PM EDT Oxygen Saturation 98% 08/08/2024 11:18 AM EST Inhaled Oxygen Concentration - - Weight 91.2 kg (201 lb) 01/27/2025 1:56 PM EDT Height 160 cm (5' 3 ) 01/27/2025 1:56 PM EDT Body Mass Index 35.61 01/27/2025 1:56 PM EDT Plan of Treatment Upcoming Encounters Date Type Department Care Team (Late st Contact Info) Description 03/31/2025 3:30 PM EDT Telemedicine [facility] [address] [place] [address] Chavez Tinajero MD [address] [place] [address] Health Maintenance Due Date Last Done Comments Disability Screening 1986 Alcohol/Substance Use Screening 1998 Family Planning (PISQ) 2001 HPV Vaccines (1 - 3-dose series) 2001 Mammogram 10/19/2023 10/18/2022, 10/18/2022, 09/14/2020 COVID-19 Vaccine (1 - 2023-2 5 season) 2024 DTaP/Tdap/Td Vaccines (2 - T d or Tdap) 06/20/2024 06/20/2014 Influenza Vaccine (#1) 2025 8, 05/08/2014 Depression Screening 08/08/2025 08/08/2024, 08/08/2024 SDOH Screening 01/20/2026 01/20/2025 Tobacco Screening 01/20/2026 01/20/2025 Diabetes: Hemoglobin A1C 02/03/2026 02/03/2025 Cervical Cancer Screening 11/09/2026 HPV/Cotest 11/09/2026 11/09/2021 Pap Smear 11/09/2026 11/09/2021 Lipid Panel 02/03/2030 02/03/2025 Zoster Vaccines (1 of 2) 01/17/2036 RSV [...] patient's age to complete this topic Meningococcal B Vaccine Aged Out No l onger eligible based on patient's age to complete this topic Meningococcal Vaccine Aged Out No daisy lasha eligible based on patient's age to complete this topic Pneumococcal Vaccine: Pediatrics (0 to 5 Years) and At-Risk Patients (6 to 49) Years Aged Out No longer eligible b ased on patient's age to complete this topic RSV under 20 months Aged Out No longe r eligible based on patient's age to complete this topic Rotavirus Vaccines Aged Out No longer eligible based on patient's age to complete this topic Procedures Procedure Name Priority Date/Time Associated Diagnosis Comments US RENAL COMPLETE Routine 02/14/2025 9:0 2 AM EDT HEMOGLOBIN A1C Routine 02/03/2025 9:02 AM EDT History of kidney stones TSH W/REFLEX TO FT4 Routine 02/03/2025 9 :02 AM EDT History of kidney stones LIPID PANEL, STANDARD Routine 02/03/2025 9:02 AM EDT History of kidney stones COMPREHENSIVE METABOLIC PANEL Routine 02/03/2025 9:02 AM EDT History of kidney stones CBC WITH AUTO DIFFERENTIAL Routine 02/03/2025 9:02 AM EDT History of kidney stones POCT URINALYSIS DIPSTICK Routine 01/27/2025 2:11 PM EDT Hematuria, unspecified type HM MAMMOGRAPHY Routine 10/18/2022 10:46 AM EDT THINPREP IMAGING PAP AND HPV MRNA E6/E7 WITH REFLEX TO HPV 16,18/45 Routine 11/09/2021 12:48 PM EDT ZZZ HISTORICAL HEPATITIS C ANTIBODY RFLX Routine 08/09/2019 11:23 AM EST ZZZ HISTORICAL HIV AB/AG Routine 08/09/2019 11:23 AM EST from Last 3 Months or Most Recently Relevant to Health Maintenance Results * US Renal Complete (02/14/2025 9:02 AM EDT) Anatomical Region Laterality Modality Kidney Ultrasound 02/14/2025 9:02 AM EDT Narrative 02/14/2025 9:03 AM EDT [address] [address] Ultrasound Report Signed Patient: Nedra Hill MR# : [id number] : 1985 Acct:[id number] Age/Sex: 40 / F ADM Date: 02/13/25 Loc: HO.US Attending Dr: Juanita ALVARENGA Ordering Physician: Juanita Flores Date of Service: 02/13/25 Procedure(s): US renal BI Accession Number(s): [id number] cc: Chavez Tinajero MD; Juanita Flores CLINICAL HISTORY: N20.0 - Calculus of kidney US Renal Comparison: 06/12/2024 Findings: Right kidney normal size and echotexture, 11.1 cm length. Left kidney normal size and echotexture, 10.7 cm length. There are bilateral renal parenchymal calculi. No hydronephrosis of either kidney. Normal color Doppler IMPRESSION: 1. No acute findings. Nonobstructing renal parenchymal calculi. This document has been electronically signed by: Romel Dunham MD on 02/14/2025 09:02:46 Dictated By: Romel Dunham MD Signed By: <Electronically signed by Romel Dunham MD in OV> 02/14/25902 DD/ 1 TD/TT: 02/14/25901 Electromechanisms Design Drafter: Procedure Note Donotuseinterpreter, Image - 02/14/2025 [place] [address] Ultrasound Report Signed Patient: Nedra Hill# : [id number] : 1985Acct:[id number] Age/Sex: 40 / FADM Date: 02/13/25 Loc: .US Attending Dr: Juanita ALVARENGA Ordering Physician: Juanita Flores Date of Service: 02/13/25 Procedure(s): US renal BI Accession Number(s): [id number] cc: Chavez Tinajero MD; Juanita Flores CLINICAL HISTORY: N20.0 - Calculus of kidney US Renal Comparison: 06/12/2024 Findings: Right kidney normal size and echotexture, 11.1 cm length. Left kidney normal size and echotexture, 10.7 cm length. There are bilateral renal parenchymal calculi. No hydronephrosis of either kidney. Normal color Doppler IMPRESSION: 1. No acute findings. Nonobstructing renal parenchymal calculi. This document has been electronically signed by: Romel Dunham MD on 02/14/2025 09:02:46 Dictated By: Romel Dunham MD Signed By: <Electronically signed by Romel Dunham MD in OV> 02/14/25902 DD/ 1 TD/TT: 02/14/25901 Electromechanisms Design Drafter: [facility] External Provider IMG US PROCEDURES Final Result * TSH W/Reflex to FT4 (02/03/2025 9:02 AM EDT) TSH reflex Free T4 1.09 0.32 - 4.0 uIU/mL [facility] Blood Venous blood specimen / Unknown 02/03/2025 9:02 AM EDT 02/03/2025 2:03 PM EDT Chavez Estrella MD LAB BLOOD ORDERABL ES Final Result [facility] [address] [place] [phone] * CBC auto differential (02/03/2025 9:02 AM EDT) White Blood Count 6.0 4.8 - 10.8 X10*3/uL [facility] Red Blood Count 4.43 4.20 - 5.50 X10*6/uL [facility] Hemoglobin 12.5 12.0 - 16.0 g/dl [facility] Hematocrit 38.2 37.0 - 47.0 % [facility] Mean Corpuscular Volume 86.2 80.0 - 98.0 fL [facility] Mean Corpuscular Hemoglobin 28.2 27.0 - 33.0 pg [facility] Mean Corpuscular HGB Conc 32.7 31.0 - 35.0 g/dl [facility] Red Cell Distribution Width 13.8 11.0 - 16.0 % [facility] Platelet Count 368 160 - 400 X10*3/uL [facility] Mean Platelet Volume 9.5 9.4 - 12.3 fL [facility] Neutrophils Percent Auto 68.6 45 - 73 % [facility] Imm Gran Pct Auto 0.2 0.0 - 0.4 % [facility] Lymphocytes Percent Auto 21.7 20 - 40 % [facility] Monocytes Percent Auto 7.2 2 - 11 % [facility] Eosinophils Percent Auto 2.0 0 - 4 % [facility] Basophils Percent Auto 0.3 0 - 2 % [facility] NRBC Pct Auto 0.0 0.0 - 0.2 /100WBC [facility] Neutrophils Absolute Auto 4.1 2.0 - 8.3 x10*3/uL [facility] Imm Gran Abs Auto 0.01 0.00 - 0.03 X10*3/uL [facility] Lymphocytes Absolute Auto 1.3 1.2 - 4.9 X10*3/uL [facility] Monocytes Absolute Auto 0.4 0.1 - 1.2 X10*3/uL [facility] Eosinophils Absolute Auto 0.1 0.0 - 0.4 X10*3/uL [facility] Basophils Absolute Auto 0.0 0.0 - 0.2 X10*3/uL [facility] NRBC Abs Auto 0.000 0.0 - 0.012 X10*3/uL [facility] Blood Venous blood specimen / Unknown 02/03/2025 9:02 AM EDT 02/03/2025 2:03 PM EDT us Chavez Estrella MD LAB BLOOD ORDERABL ES Final Result [facility] [address] [place] [address] [phone] * Hemoglobin A1c (02/03/2025 9:02 AM EDT) Hemoglobin A1c 5.7 <6.0 % [facility] Comment:Hemoglobin A1C Refer ence Range Adults: 4.8 - 6.0 % Non diabetic: < 6.0 % Goal: < 7.0 %Additional Action Suggested: > 8.0 %Note: Hemoglobin A1c results are invalid for patients with abnormal amounts of HbF. Blood transfusions may impact the HbA1c concentration in the patient sample. Estimated Average Glucose 117 mg/dL [facility] Comment:eAG = Estimated ave rage glucose which is %A1C expressed asaverage glucose, using the formula of the [id number] Glucose study (ADAG), Diabetes Care, Vol.31,#8,Feb. 2007 Blood Venous blood specimen / Unknown 02/03/2025 9:02 AM EDT 02/03/2025 2:03 PM EDT us Chavez Estrella MD LAB BLOOD ORDERABL ES Final Result [facility] [address] [place] [phone] * Lipid Panel, Standard (02/03/2025 9:02 AM EDT) Triglycerides 83 <150 mg/dL [facility] Comment:Desirable Triglyceri de: less than 150 mg/dLBorderline High Triglyceride 150-199 mg/dLHigh Triglyceride: 200-499 mg/dLVery High Triglyceride: greater than or equal to 5OO mg/dL Cholesterol 160 <200 mg/dL [facility] Comment:Desirable Cholestero l: less than 200 mg/dLBorderline High Cholesterol: 200-239 mg/dLHigh Cholesterol: greater than 239 mg/dL LDL Cholesterol Calculated 90 <100 mg/dL [facility] Comment:Desirable LDL: less than 100 mg/dLNear Optimal/Above Optimal LDL: 110- 129 mg/dLBorderline High LDL: 130-159 mg/dLHigh LDL: 160-189 mg/dLVery High LDL: greater than or equal to 190 mg/dL HDL Cholesterol 54 >40 mg/dL [facility] Comment:Desirable HDL: great er than 40 mg/dL Note: This HDL assay may give artificially low results in patients with liver disease. Blood Venous blood specimen / Unknown 02/03/2025 9:02 AM EDT 02/03/2025 2:03 PM EDT us Chavez Estrella MD LAB BLOOD ORDERABL ES Final Result [facility] [address] [place] [address] [phone] * (ABNORMAL) Comprehensive Metabolic Panel (02/03/2025 9:02 AM EDT) Sodium 140 135 - 145 mmol/L [facility] Potassium 4.7 3.3 - 5.1 mmol/L [facility] Chloride 108 96 - 108 mmol/L [facility] Carbon Dioxide 26 22 - 29 mmol/L [facility] Anion Gap 11(L) 12 - 20 [facility] Urea Nitrogen (BUN) 16 9 - 16 mg/dL [facility] Creatinine, Serum 0.86 0.5 - 1.4 mg/dL [facility] Estimated Glomerular Filt Rate >60 [facility] Comment:Chronic Kidney Disea se: Estimated GFR < 60 mL/min/1.81t5Ulxolb Kidney Disease: Estimated GFR < 15 mL/min/1.73m2 Glucose 97 60 - 115 mg/dL [facility] Calcium 9.1 8.4 - 10.2 mg/dL [facility] Bilirubin, Total 0.3 0.0 - 1.0 mg/dL [facility] Aspartate Amino Transferase 19 5 - 31 U/L [facility] Alanine Aminotransferase 14 0 - 31 U/L [facility] Total Protein 7.8 6.5 - 8.0 g/dL [facility] Albumin Level 4.4 3.5 - 5.0 g/dL [facility] Alkaline Phosphatase 48 39 - 117 U/L [facility] Blood Venous blood specimen / Unknown 02/03/2025 9:02 AM EDT 02/03/2025 2:03 PM EDT us Chavez Estrella MD LAB BLOOD ORDERABL ES Final Result [facility] [address] [place] [address] [phone] * (ABNORMAL) POCT Urinalysis (01/27/2025 2:11 PM EDT) Color, UA Yellow Clarity, UA Clear Glucose, UA Negative Bilirubin, UA Negative Ketones, UA Negative Spec Grav, UA 1.030 Blood, UA Positive(A) Negative, None Detected Comment:moderate pH, UA 5.5 Protein, UA Negative Urobilinogen, UA 0.2 Leukocytes, UA Negative Negative, Rare, Trace Nitrite, UA Negative Negative, None Detected Appearance, UA clear QC Media Lot # [id number] Lot# Expiration Date Urine 01/27/2025 2:11 PM EDT Chavez Estrella MD POINT OF CARE TEST ENTER/EDIT ORDERABLES Final Result * Hm Mammography (10/18/2022 10:46 AM EDT) Mammogram Bi-rads 2 Anatomical Region Laterality Modality Other Narrative 10/18/2022 10:46 AM EDT Routine annual bilateral mammography, beginning age 40, or earlier as clinical risk factors warrant. Juan Provider HEALTH MAINTENANCE Final Result * THINPREP TIS PAP AND HPV mRNA E6/E7 WITH REFLEX TO HPV 16,18/45 (11/09/2021 12:48 PM EDT) Clinical Information: None given [facility] COMMENT SEE COMMENT [facility] Comment: EXPLANATORY NOTE: The Pap is a screening test for cervical cancer. It is not a diagnostic test and is subject to false negative and false positive results. It is most reliable when a satisfactory sample, regularly obtained, is submitted with relevant clinical findings and history, and when the Pap result is evaluated along with historic and current clinical information. COMMENT: This Pap test has been evaluated with computer assisted technology. [facility] Mine Wedge Sawyer: SEE COMMENT [facility] Comment: YP, CT(ASCP) CT screening location: [address] [address] HPV nRNA E6/E7 Not Detected Not Detected [facility] Comment: Methodology: Materials Planner/Production Planner-Mediated Amplification This assay detects E6/E7 viral messenger RNA (mRNA) from 14 high-risk HPV types (16,18,31,33,35,39,45,51,52,56,58,59,66,68). The analytical performance characteristics of this assay have been determined by [employer]. The modifications have not been cleared or approved by the FDA. This assay has been validated pursuant to the CLIA regulations and is used for clinical purposes. For additional information, please refer to http://education.Brightfish/faq/EXX031d3 (This link if provided for information/ educational purposes only.) Interpretation/Re sult: Negative for intraepithelial lesion or malignancy. [facility] LMP: 10/03/21 [facility] Prev. BX: NONE GIVEN [facility] Prev. PAP: 04/2018 [facility] SOURCE: None given [facility] Statement Of Adequacy: SEE COMMENT [facility] Comment: Satisfactory for evaluation. Endocervical/transformation zone component absent. 11/09/2021 12:4 8 PM EDT Sri Ndiaye CNM LAB PATHOLOGY ORDERABLES Final Result Performing Organization Address [facility] de Phone Number [facility] [address] * HEPATITIS C ANTIBODY RFLX (08/09/2019 11:23 AM EST) HEPATITIS C ANTIBODY NONREACTIVE NONREACTIVE [facility] Comment: Antibodies to HCV not detected; does not exclude early acute HCV infection. 08/09/2019 11:2 3 AM EST Historical Provider MD HISTORICAL/NON ORDERABLE LABS Final Result Performing Organization Address [facility] Co de Phone Number [facility] [address] * HIV AB/AG (08/09/2019 11:23 AM EST) HIV AG/AB NONREACTIVE NR [facility] Comment: HIV-1 p24 Ag and/or HIV-1/HIV-2 Ab not detected. A test result that is nonreactive does not exclude the possibility of exposure to or infection with HIV-1 and/or HIV-2. Nonreactive results in this assay for individuals with prior exposure to HIV-1 and/or HIV-2 may be due to antigen and antibody levels that are below the limit of detection of this assay. The [employer] HIV Ag/Ab Combo assay result and supplemental assay results should be interpreted in conjunction with the patient's clinical presentation, history and other laboratory results. If the results are inconsistent with clinical evidence, additional testing is suggested to confirm the result. 08/09/2019 11:2 3 AM EST us Historical Provider HISTORICAL/NON ORDERABLE LABS Final Result Performing Organization Address City/State/[facility] Co vt Phone Number [facility] [address] from Last 3 Months or Most Recently Relevant to Health Maintenance Insurance [facility] Care Teams Client Services Director Relationship Specialty Start Date End Date Chavez Tinajero MD [address] [place] [phone] PCP - General Internal Medicine 12/15/19
--- OUTSIDE RECORDS SUMMARY | 2025-03-13 15:13 | XMS_ITS | Encounter Summary ---
Author Organization [employer] Address [address] [place] [address] Care Team Providers Care Liquor Tester Name Role Phone Chavez iTnajero MD Primary Care Prov ider Reason for Referral * Consultation (Routine) - Authorized Specialty Diagnoses / Procedures Referred By Theresa zhao Referred To Contact Urology Diagnoses History of kidney stones Graciela German MD [address] [place] [address] Phone: tel: fax: [facility] [address] [place] [address] Phone: tel: fax: Referral ID Status Reason Start Date Expiration Date Visits Requested Visits Authorized [id number] Authorized Specialty Services Required 08/29/2024 08/29/2025 1 1 Encounter Details Date Type Department Care Team (Late st Contact Info) Description 08/29/2024 Orders Only [facility] [address] [place] [address] Graciela German MD [address] [place] [address] History of kidney stones (Primary Dx) Social [...] Upcoming Encounters Date Type Department Care Team ([facility] st Contact Info) Description 03/31/2025 3:30 PM EDT Telemedicine [facility] [address] [place] [address] Chavez Tinajero MD [address] [place] [address] Scheduled Referrals Name Type Priority Associated Diagnoses [...] documented as of this encounter Care Teams Liquor Tester Relationship Specialty Start Date End Date Chavez Tinajero MD [address] [place] [phone] PCP - General Internal Medicine 12/15/19 documented as of this encounter
--- OUTSIDE RECORDS SUMMARY | 2025-03-13 15:13 | XMS_ITS | Encounter Summary ---
Author Organization [email or web address] Address [address] [facility] 7 [place] [address] Care Team Providers Care Boil Off Worker Name Role Phone Chavez Tinajero MD Primary Care Prov ider Encounter Details Date Type Department Care Team ([facility] st Contact Info) Description 03/10/2025 Telephone [facility] [address] [place], [place] [phone] Chavez Tinajero MD [address] [place] [address] Social History Tobacco Use Types Packs/Day Years [...] your housing situation today? I have katheryn fihser 01/20/[address] you li [...] encounter Miscellaneous Notes * Telephone Encounter - Racheal Alvarado RN - 03/10/2025 11:00 AM EDT TC to [facility] central scheduling. They state that the order needs to state US pelvic complete and transvaginal . Message sent to provider to have this updated. [employer] reply will be sent to pt. Order updated * Telephone Encounter - Jaclyn Arevalo - 03/10/2025 8:50 AM EDT Tc from pt stating she was advised by [facility] need the ultrasound referral to be updated. They want it to say pelvic in order for them to schedule appointment. documented in this encounter Plan of Treatment Upcoming Encounters Date Type Department Care Team (Late st Contact Info) Description 03/31/2025 3:30 PM EDT Telemedicine [facility] [address] [place], [place] [phone] Chavez Tinajero MD [address] [place], [place] [phone] documented as of this encounter Visit Diagnoses Not on filedocumented in this encounter Additional Health Concerns Assessment Noted Time PHQ-9 Depression Total Score: 3 08/08/19 25 12:51 PM EST documented as of this encounter Care Teams Boil Off Worker Relationship Specialty Start Date End Date Chavez Tinajero MD [address] [place] [phone] PCP - General Internal Medicine 12/15/19 documented as of this encounter
--- OUTSIDE RECORDS SUMMARY | 2025-03-13 15:13 | XMS_ITS | Clinical Summary ---
Author Organization [facility] Address [address] [place] [address] Care Team Providers Care Formula Clerk Name Role Phone Unavailable Primary Care Provider [...]
== END 2025-03-13 16:17 | disposition home or self-care (01) ==
LOC: HO.HUSH 14:36
PROVIDERS: PCP Internal Medicine; Visit Provider Nurse Practitioner Family
DX: N20.0 Calculus of kidney (principal); Z13.9 Encounter for screening, unspecified
CPT/HCPCS: 99213

== ENCOUNTER 2025-03-13 15:22 | Outpatient (REF) | payer OTHER, SELFPAY ==
--- NOTE | ~2025-03-13 | US_ITS ---
EXAMINATION: US PELVIS CLINICAL INFORMATION: Pelvic pain COMPARISON: None available. TECHNIQUE: Ultrasound of the pelvis is performed using both transabdominal and transvaginal transducers along with Doppler. Transvaginal imaging is performed due to inadequate visualization transabdominally. FINDINGS: Uterus: The uterus is anteverted and measures 8.6 x 5.0 x 5.5 cm. The double wall endometrial thickness is 5 mm. IUD is present in the upper endometrial canal The uterus is smooth in contour with 2 heterogeneous regions consistent with leiomyoma. Anterior fundal subserosal-intramural: 1.2 x 1.0 x 1.3 cm. Posterior mid body intramural: 1.7 x 1.7 x 1.6 cm. Neither was seen on the prior. Adnexa: Both ovaries are visualized. There is normal color flow to the adnexa. There is no ovarian torsion. There is no pelvic ascites or fluid collection. Right ovary measures 2.1 x 1.4 x 1.7 cm. Left ovary measures 1.9 x 1.3 x 1.6 cm. US/US pelvic and transvaginal IMPRESSION: 2 small uterine leiomyomas are identified on the current exam that were not seen previously. IUD is appropriately positioned. Electronically signed by: Ariel Singh MD 03/13/2025 04:07 PM EDT
== END 2025-03-13 15:23 | disposition home or self-care (01) ==
LOC: HO.US 15:22
PROVIDERS: PCP Internal Medicine; Visit Provider Internal Medicine
DX: R10.2 Pelvic and perineal pain (principal)
CPT/HCPCS: 76830; 76856

== ENCOUNTER → 2025-03-13 15:26 | Outpatient (BNV) | payer OTHER, SELFPAY | PROVIDERS: PCP Internal Medicine; Visit Provider Radiology Diagnostic Radiology | DX: R10.2 Pelvic and perineal pain (principal); D25.9 Leiomyoma of uterus, unspecified | CPT/HCPCS: 76830; 76856 ==

== ENCOUNTER 2025-03-13 15:31 | Outpatient (REF) | payer OTHER, SELFPAY | END 2025-03-13 15:32 | disposition home or self-care (01) | LOC: HO.LAB 15:31 | PROVIDERS: Visit Provider Nurse Practitioner Family | DX: R31.29 Other microscopic hematuria (principal) | CPT/HCPCS: 81003; 88112 ==

== ENCOUNTER 2025-04-03 08:12 | Outpatient (REF) | payer OTHER, SELFPAY ==
--- OUTSIDE RECORDS SUMMARY | 2025-03-31 15:30 | XMS_ITS | Encounter Summary ---
Author Organization [employer] Address [address] [place] [address] 7 [place] [address] Care Team Providers Care Ring Sorter Name Role Phone Chavez Tinajero MD Primary Care Prov ider Encounter Details Date Type Department Care Team ([facility] st Contact Info) Description 03/31/2025 3:30 PM EDT Telemedicine [facility] CHC MED & PEDS [address] [place] [address] Chavez Tinajero MD [address] [place] [address] Bloating (Primary Dx) Social History Tobacco Use Types [...] Type Priority Associated Diagnoses Orde r Schedule Helicobacter pylori Antigen, EIA, Stool Lab Routine Bloating Expected: 03/31/2025, Expires: 03/31/2026 documented as of this encounter Visit Diagnoses Diagnosis Bloating- Primary Flatulence, eructation, and gas pain documented in this encounter Additional Health Concerns Assessment Noted Time PHQ-9 Depression Total Score: 3 08/08/19 25 12:51 PM EST documented as of this encounter Care Teams Ring Sorter Relationship Specialty Start Date End Date Chavez Tinajero MD [address] [place] [address] PCP - General Internal Medicine 12/15/19 documented as of this encounter
--- OUTSIDE RECORDS SUMMARY | 2025-04-03 08:59 | XMS_ITS | Encounter Summary ---
Author Organization [employer] Address [address] [place] [address] [place] [address] Care Team Providers Care Electron Gun Assembler Name Role Phone Chavez Tinajero MD Primary Care Prov ider Reason for Visit * Reason Comments Med Change Request Encounter Details Date Type Department Care Team ([facility] Contact Info) Description 04/01/2025 Refill [facility] CHC MED & PEDS [address] [place], [place] [phone] Chavez Tinajero MD [address] [place] [address] Social History Tobacco Use Types Packs/Day Years [...] your housing situation today? I have katheryn sing 01/20/[address] you li [...] documented as of this encounter Care Teams Electron Gun Assembler Relationship Specialty Start Date End Date Chavez Tinajero MD [address] [place] [phone] PCP - General Internal Medicine 12/15/19 documented as of this encounter
--- OUTSIDE RECORDS SUMMARY | 2025-04-03 08:59 | XMS_ITS | Encounter Summary ---
Author Organization [employer] Address [address] [place] [address] Care Team Providers Care Ux Design Manager Name Role Phone Chavez Tinajero MD Primary Care Prov ider Reason for Referral * Consultation (Routine) - Authorized Specialty Diagnoses / Procedures Referred By Theresa zhao Referred To Contact Urology Diagnoses History of kidney stones Graciela German MD [address] [place] [address] Phone: tel: fax: [facility] [address] [place] [address] Phone: tel: fax: Referral ID Status Reason Start Date Expiration Date Visits Requested Visits Authorized [id number] Authorized Specialty Services Required 08/29/2024 08/29/2025 1 1 Encounter Details Date Type Department Care Team (Late st Contact Info) Description 08/29/2024 Orders Only [facility] CHC MED & PEDS [address] [place] [address] Graciela German MD [address] [place] [address] History of kidney stones (Primary Dx) Social [...] documented as of this encounter Care Teams Ux Design Manager Relationship Specialty Start Date End Date Chavez Tinajero MD [address] [place] [address] PCP - General Internal Medicine 12/15/19 documented as of this encounter
--- OUTSIDE RECORDS SUMMARY | 2025-04-03 08:59 | XMS_ITS | Encounter Summary ---
Author Organization [employer] Address [address] [place] [address] Care Team Providers Care Washer Meat Name Role Phone Chavez Tinajero MD Primary Care Prov ider Encounter Details Date Type Department Care Team ([facility] st Contact Info) Description 09/09/2022 Telephone [facility] CHC MED & PEDS [address] [place], [place] [phone] Dilma Wade RN [address] [place] [address] Social History Tobacco Use Types Packs/Day Years [...] on filedocumented in this encounter Care Teams Washer Meat Relationship Specialty Start Date End Date Chavez Tinajero MD [address] [place], [place] [phone] PCP - General Internal Medicine 12/15/19 documented as of this encounter
--- OUTSIDE RECORDS SUMMARY | 2025-04-03 08:59 | XMS_ITS | Encounter Summary ---
Author Organization [employer] Address [address] [place] [address] [place] [address] Care Team Providers Care Hotel Service Supervisor Name Role Phone Chavez Tinajero MD Primary Care Prov ider Encounter Details Date Type Department Care Team ([facility] st Contact Info) Description 01/09/2023 Abstract [facility] MED & PEDS [address] [place], [place] [phone] Chavez Tinajero MD [address] [place] [address] Social History Tobacco Use Types Packs/Day Years [...] documented as of this encounter Care Teams Hotel Service Supervisor Relationship Specialty Start Date End Date Chavez Tinajero MD [address] [place] [address] PCP - General Internal Medicine 12/15/19 documented as of this encounter
--- OUTSIDE RECORDS SUMMARY | 2025-04-03 08:59 | XMS_ITS | Clinical Summary ---
Author Organization [facility] Address [address] [place] [address] Care Team Providers Care Antique Furniture Reproducer Name Role Phone Unavailable Primary Care Provider [...]
--- OUTSIDE RECORDS SUMMARY | 2025-04-03 08:59 | XMS_ITS | Encounter Summary ---
Author Organization [employer] Address [address] [place] [address] [place] [address] Care Team Providers Care Body And Frame Man Name Role Phone Chavez Tinajero MD Primary Care Prov ider Reason for Visit * Reason Comments Med Change Request Encounter Details Date Type Department Care Team ([facility] Contact Info) Description 03/20/2025 Refill [facility] MED & PEDS [address] [place], [place] [phone] Chavez Tinajero MD [address] [place] [address] Social History Tobacco Use Types Packs/Day Years [...] documented as of this encounter Care Teams Body And Frame Man Relationship Specialty Start Date End Date Chavez Tinajero MD [address] [place] [address] PCP - General Internal Medicine 12/15/19 documented as of this encounter
--- OUTSIDE RECORDS SUMMARY | 2025-04-03 08:59 | XMS_ITS | Encounter Summary ---
Author Organization [employer] Address [address] [place] [address] Care Team Providers Care Flue Dust Laborer Name Role Phone Chavez Tinajero MD Primary Care Prov ider Reason for Visit * Reason Onset Date Comments Med Refill 02/28/2025 Encounter Details Date Type Department Care Team ([facility] st Contact Info) Description 02/28/2025 Refill [facility] CHC MED & PEDS [address] [place], [place] [phone] Chavez Tinajero MD [address] [place] [address] Class 2 obesity due to excess calories [...] documented as of this encounter Care Teams Flue Dust Laborer Relationship Specialty Start Date End Date Chavez Tinajero MD [address] [place] [address] PCP - General Internal Medicine 12/15/19 documented as of this encounter
--- OUTSIDE RECORDS SUMMARY | 2025-04-03 08:59 | XMS_ITS | Encounter Summary ---
Author Organization [employer] Address [address] [facility] [address] [place] [address] Care Team Providers Care Level Vial Setter Name Role Phone Chavez Tinajero MD Primary Care Prov ider Encounter Details Date Type Department Care Team (Latest Contact Info) Description 03/31/2025 Travel Social History Tobacco Use Types Packs/Day [...] documented as of this encounter Care Teams Level Vial Setter Relationship Specialty Start Date End Date Chavez Tinajero MD [address] [place] [address] PCP - General Internal Medicine 12/15/19 documented as of this encounter
--- OUTSIDE RECORDS SUMMARY | 2025-04-03 09:00 | XMS_ITS | Clinical Summary ---
Author Organization [employer] Address [address] [place] [address] 7 [place] [address] Care Team Providers Care Safety Specialist Name Role Phone Chavez Tinajero MD [...] TIMES DAILY. 60 capsule 09/06/19 25 Active phentermine 15 MG capsuleIndicati ons:Class 2 obesity due to excess calories without serious comorbidity with body mass index (BMI) of 35.0 to 35.9 in adult TAKE 1 CAPSULE BY MOUTH BEFORE BREAKFAST 30 capsule 03/03/20 25 Active topiramate 50 MG tablet Take 1 tablet (50 mg) by mouth Once per day. 180 tablet 04/01/20 25 Active topiramate (Topamax) 50 MG tablet Take 1 tablet (50 mg) by mouth Once per day. 60 tablet 1 01/28/20 25 025 Discontinued Active Problems Problem [...] Encounters Date Type Department Care Team Description 04/01/2025 Refill [facility] [address] [place] [address] Chavez Tinajero MD 03/31/2025 3:30 PM EDT Telemedicine [facility] [address] [place] [address] Chavez Tinajero MD Bloating (Primary Dx) 03/31/2025 Travel 03/28/2025 Telephone [facility] [address] [place] [address] Chavez Tinajero MD Chart Prep 03/20/2025 Refill [facility] [address] [place] [address] Chavez Tinajero MD 03/10/2025 Orders Only [facility] [address] [place] [address] Chavez Tinajero MD Pelvic pain (Primary Dx) 03/10/2025 Telephone [facility] [address] [place] [address] Chavez Tinajero MD 02/28/2025 Refill [facility] [address] [place] [address] Chavez Tinajero MD Class 2 obesity due to excess calories without serious comorbidity with body mass index (BMI) of 35.0 to 35.9 in adult 02/25/2025 Refill [facility] [address] [place] [address] Chavez Tinajero MD Class 2 obesity due to excess calories without serious comorbidity with body mass index (BMI) of 35.0 to 35.9 in adult 02/17/2025 Telephone [facility] [address] [place] [address] Chavez Tinajero MD Prior Authorization 02/13/2025 Orders Only [facility] External Provider, [employer] 01/27/2025 1:45 PM EDT Office Visit [facility] [address] [place] [address] Chavez Tinajero MD Encounter for screening mammogram for malignant neoplasm of breast (Primary Dx); Hematuria, unspecified type; History of kidney stones; Class 2 obesity due to excess calories without serious comorbidity with body mass index (BMI) of 35.0 to 35.9 in adult; Pelvic pain; Interstitial cystitis 01/27/2025 Travel 01/20/2025 Patient Outreach [facility] [address] [place] [address] Chavez Tinajero MD Pre-visit Planning (SDOH screening [...] 01/27/2025 1:56 PM EDT Plan of Treatment Health Maintenance Due Date Last Done Comments Family Planning (PISQ) 2001 HPV Vaccines (1 - 3-dose series) 2001 Mammogram 10/19/2023 10/18/2022, 10/18/2022, 09/14/2020 DTaP/Tdap/Td Vaccines (2 - T d or Tdap) 06/20/2024 06/20/2014 COVID-19 Vaccine ( - 2023-2 5 season) 2025 Influenza Vaccine (#1) 2025 8, 05/08/2014 Depression Screening 08/08/2025 08/08/2024, 08/08/2024 SDOH Screening 01/20/2026 01/20/2025 Tobacco Screening 01/20/2026 01/20/2025 Diabetes: Hemoglobin A1C 02/03/2026 02/03/2025 Alcohol/Substance Use Screening 03/31/2026 03/31/2025 Disability Screening 03/31/2026 03/31/2025 Cervical Cancer Screening 11/09/2026 HPV/Cotest 11/09/2026 11/09/2021 [...] Name Priority Date/Time Associated Diagnosis Comments US PELVIS TRANSVAGINAL Routine 3:33 PM EDT Pelvic pain US PELVIS COMPLETE Routine 03/13/2025 Pelvic pain US RENAL COMPLETE Routine 02/14/2025 9:0 2 [...] Relevant to Health Maintenance Results * US Pelvis Transvaginal (03/13/2025 3:33 PM EDT) Anatomical Region Laterality Modality Pelvis Ultrasound 03/13/2025 3:33 PM EDT Narrative 03/13/2025 4:09 PM EDT [address] [address] Ultrasound Report Signed Patient: Nedra Hill MR# : [id number] : 1985 Acct:[id number] Age/Sex: 40 / F ADM Date: 03/13/25 Loc: HO.US Attending Dr: Chavez Estrella MD Ordering Physician: Chavez Tinajero MD Date of Service: 03/13/25 Procedure(s): US pelvic and transvaginal Accession Number(s): [id number] cc: Chavez Tinajero MD EXAMINATION: US PELVIS CLINICAL INFORMATION: Pelvic pain COMPARISON: None available. TECHNIQUE: Ultrasound of the pelvis is performed using both transabdominal and transvaginal transducers along with Doppler. Transvaginal imaging is performed due to inadequate visualization transabdominally. FINDINGS: Uterus: The uterus is anteverted and measures 8.6 x 5.0 x 5.5 cm. The double wall endometrial thickness is 5 mm. IUD is present in the upper endometrial canal The uterus is smooth in contour with 2 heterogeneous regions consistent with leiomyoma. Anterior fundal subserosal-intramural: 1.2 x 1.0 x 1.3 cm. Posterior mid body intramural: 1.7 x 1.7 x 1.6 cm. Neither was seen on the prior. Adnexa: Both ovaries are visualized. There is normal color flow to the adnexa. There is no ovarian torsion. There is no pelvic ascites or fluid collection. Right ovary measures 2.1 x 1.4 x 1.7 cm. Left ovary measures 1.9 x 1.3 x 1.6 cm. US/US pelvic and transvaginal IMPRESSION: 2 small uterine leiomyomas are identified on the current exam that were not seen previously. IUD is appropriately positioned. Electronically signed by: Ariel Singh MD 03/13/2025 04:07 PM EDT Dictated By: Ariel Singh MD Signed By: <Electronically signed by Ariel Singh MD in OV> 03/13/25 1607 DD/ 1533 TD/TT: 03/13/25 [address]: Procedure Note Donotuseinterpreter, Image - 03/13/2025 [place] [address] Ultrasound Report Signed Patient: Nedra HillMR# : [id number] : 1985Acct:[id number] Age/Sex: 40 / FADM Date: 03/13/25 Loc: HO.US Attending Dr: Chavez Estrella MD Ordering Physician: Chavez Tinajero MD Date of Service: 03/13/25 Procedure(s): US pelvic and transvaginal Accession Number(s): [id number] cc: Chavez Tinajero MD EXAMINATION: US PELVIS CLINICAL INFORMATION: Pelvic pain COMPARISON: None available. TECHNIQUE: Ultrasound of the pelvis is performed using both transabdominal and transvaginal transducers along with Doppler. Transvaginal imaging is performed due to inadequate visualization transabdominally. FINDINGS: Uterus: The uterus is anteverted and measures 8.6 x 5.0 x 5.5 cm. The double wall endometrial thickness is 5 mm. IUD is present in the upper endometrial canal The uterus is smooth in contour with 2 heterogeneous regions consistent with leiomyoma. Anterior fundal subserosal-intramural: 1.2 x 1.0 x 1.3 cm. Posterior mid body intramural: 1.7 x 1.7 x 1.6 cm. Neither was seen on the prior. Adnexa: Both ovaries are visualized. There is normal color flow to the adnexa. There is no ovarian torsion. There is no pelvic ascites or fluid collection. Right ovary measures 2.1 x 1.4 x 1.7 cm. Left ovary measures 1.9 x 1.3 x 1.6 cm. US/US pelvic and transvaginal IMPRESSION: 2 small uterine leiomyomas are identified on the current exam that were not seen previously. IUD is appropriately positioned. Electronically signed by: Ariel Singh MD 03/13/2025 04:07 PM EDT RP Dictated By: Ariel Singh MD Signed By: <Electronically signed by Ariel Singh MD in OV> 03/13/25 1607 DD/ 1533 TD/TT: 03/13/25 [address]: us Chavez Estrella MD IMG US PROCEDURES Final Result * Us Pelvis complete (03/13/2025) Anatomical Region Laterality Modality Pelvis Ultrasound us Chavez Estrella MD IMG US PROCEDURES Final Result * US Renal Complete (02/14/2025 9:02 AM EDT) Anatomical Region Laterality Modality Kidney Ultrasound 02/14/2025 9:02 AM EDT Narrative 02/14/2025 9:03 AM EDT [place] [address] Ultrasound Report Signed Patient: Nedra Hill MR# : [id number] : 1985 Acct:[id number] Age/Sex: 40 / F ADM Date: 02/13/25 Loc: HO.US Attending Dr: Juanita ALVARENGA Ordering Physician: Juanita Flores Date of Service: 02/13/25 Procedure(s): US renal BI Accession Number(s): [id number] cc: Chavez Tinajero MD; Juanita Flores CLINICAL [...] in OV> 02/14/25902 DD/ 1 TD/TT: 02/14/[address]: Procedure Note Donotesterinterpreter, Image - 02/14/2025 [place] [address] Ultrasound Report Signed Patient: Nedra Hill# : [id number] : 1985Acct:[id number] Age/Sex: 40 / FADM Date: 02/13/25 Loc: HO.US Attending Dr: Juanita ALVARENGA Ordering Physician: Juanita Flores Date of Service: 02/13/25 Procedure(s): US renal BI Accession Number(s): [id number] cc: Chavez Tinajero MD; Juanita Flores CLINICAL [...] in OV> 02/14/25902 DD/ 1 TD/TT: 02/14/[address]: us [employer] External Provider IMG US PROCEDURES Final Result * TSH W/Reflex to FT4 (02/03/2025 9:02 AM EDT) TSH reflex Free T4 1.09 0.32 - 4.0 uIU/mL [facility] Blood Venous blood specimen / Unknown 02/03/2025 9:02 AM EDT 02/03/2025 2:03 PM EDT us Chavez Estrella MD LAB BLOOD ORDERABL ES Final Result [facility] [address] [place] [address] [phone] * CBC auto differential (02/03/2025 9:02 AM EDT) White Blood Count 6.0 4.8 - 10.8 X10*3/uL [facility] Red Blood Count 4.43 4.20 - 5.50 X10*6/uL [facility] Hemoglobin 12.5 12.0 - 16.0 g/dl [facility] Hematocrit 38.2 37.0 - 47.0 % [facility] Mean Corpuscular Volume 86.2 80.0 - 98.0 fL [facility] Mean Corpuscular Hemoglobin 28.2 27.0 - 33.0 pg [facility] Mean Corpuscular HGB Conc 32.7 31.0 - 35.0 g/dl [facility] Red Cell Distribution Width 13.8 11.0 - 16.0 % [facility] Platelet Count 368 160 - 400 X10*3/uL [facility] Mean Platelet Volume 9.5 9.4 - 12.3 fL [facility] Neutrophils Percent Auto 68.6 45 - 73 % [facility] Imm Gran Pct Auto 0.2 0.0 - 0.4 % [facility] Lymphocytes Percent Auto 21.7 20 - 40 % [facility] Monocytes Percent Auto 7.2 2 - 11 % [facility] Eosinophils Percent Auto 2.0 0 - 4 % [facility] Basophils Percent Auto 0.3 0 - 2 % [facility] NRBC Pct Auto 0.0 0.0 - 0.2 /100WBC [facility] Neutrophils Absolute Auto 4.1 2.0 - 8.3 x10*3/uL [facility] Imm Gran Abs Auto 0.01 0.00 - 0.03 X10*3/uL [facility] Lymphocytes Absolute Auto 1.3 1.2 - 4.9 X10*3/uL [facility] Monocytes Absolute Auto 0.4 0.1 - 1.2 X10*3/uL [facility] Eosinophils Absolute Auto 0.1 0.0 - 0.4 X10*3/uL [facility] Basophils Absolute Auto 0.0 0.0 - 0.2 X10*3/uL [facility] NRBC Abs Auto 0.000 0.0 - 0.012 X10*3/uL [facility] Blood Venous blood specimen / Unknown 02/03/2025 9:02 AM EDT 02/03/2025 2:03 PM EDT Chavez Estrella MD LAB BLOOD ORDERABL ES Final Result Performing Organization Address [facility]/ZIP Co de Phone Number [facility] [address] [place] [phone] * Hemoglobin A1c (02/03/2025 9:02 AM EDT) Hemoglobin A1c 5.7 <6.0 % [facility] Comment:Hemoglobin A1C Refer ence Range Adults: 4.8 - 6.0 % Non diabetic: < 6.0 % Goal: < 7.0 %Additional Action Suggested: > 8.0 %Note: Hemoglobin A1c results are invalid for patients with abnormal amounts of HbF. Blood transfusions may impact the HbA1c concentration in the patient sample. Estimated Average Glucose 117 mg/dL [facility] Comment:eAG = Estimated ave rage glucose which is %A1C expressed asaverage glucose, using the formula of the N7D-[id number] Glucose study (ADAG), Diabetes Care, Vol.31,#8,Feb. 2007 Blood Venous blood specimen / Unknown 02/03/2025 9:02 AM EDT 02/03/2025 2:03 PM EDT Chavez Estrella MD LAB BLOOD ORDERABL ES Final Result [facility] [address] [place] [address] [phone] * Lipid Panel, Standard (02/03/2025 9:02 AM EDT) Triglycerides 83 <150 mg/dL [facility] Comment:Desirable Triglyceri de: less than 150 mg/dLBorderline High Triglyceride 150-199 mg/dLHigh Triglyceride: 200-499 mg/dLVery High Triglyceride: greater than or equal to 5OO mg/dL Cholesterol 160 <200 mg/dL [facility] Comment:Desirable Cholestero l: less than 200 mg/dLBorderline High Cholesterol: 200-239 mg/dLHigh Cholesterol: greater than 239 mg/dL LDL Cholesterol Calculated 90 <100 mg/dL [facility] Comment:Desirable LDL: less than 100 mg/dLNear Optimal/Above Optimal LDL: 110- 129 mg/dLBorderline High LDL: 130-159 mg/dLHigh LDL: 160-189 mg/dLVery High LDL: greater than or equal to 190 mg/dL HDL Cholesterol 54 >40 mg/dL [facility] Comment:Desirable HDL: great er than 40 mg/dL Note: This HDL assay may give artificially low results in patients with liver disease. Blood Venous blood specimen / Unknown 02/03/2025 9:02 AM EDT 02/03/2025 2:03 PM EDT us Chavez Estrella MD LAB BLOOD ORDERABL ES Final Result [facility] [address] [place] [address] [phone] * (ABNORMAL) Comprehensive Metabolic Panel (02/03/2025 9:02 AM EDT) Sodium 140 135 - 145 mmol/L [facility] Potassium 4.7 3.3 - 5.1 mmol/L [facility] Chloride 108 96 - 108 mmol/L [facility] Carbon Dioxide 26 22 - 29 mmol/L [facility] Anion Gap 11(L) 12 - 20 [facility] Urea Nitrogen (BUN) 16 9 - 16 mg/dL [facility] Creatinine, Serum 0.86 0.5 - 1.4 mg/dL [facility] Estimated Glomerular Filt Rate >60 [facility] Comment:Chronic Kidney Disea se: Estimated GFR < 60 mL/min/1.59f3Obuwgx Kidney Disease: Estimated GFR < 15 mL/min/1.73m2 Glucose 97 60 - 115 mg/dL [facility] Calcium 9.1 8.4 - 10.2 mg/dL [facility] Bilirubin, Total 0.3 0.0 - 1.0 mg/dL [facility] Aspartate Amino Transferase 19 5 - 31 U/L [facility] Alanine Aminotransferase 14 0 - 31 U/L [facility] Total Protein 7.8 6.5 - 8.0 g/dL [facility] Albumin Level 4.4 3.5 - 5.0 g/dL [facility] Alkaline Phosphatase 48 39 - 117 U/L [facility] Blood Venous blood specimen / Unknown 02/03/2025 9:02 AM EDT 02/03/2025 2:03 PM EDT Chavez Estrella MD LAB BLOOD ORDERABL ES Final Result [facility] [address] [place] [address] [phone] * (ABNORMAL) POCT Urinalysis (01/27/2025 2:11 [...] PM EDT) Clinical Information: None given [facility] COMMENT SEE COMMENT [facility] Comment: EXPLANATORY NOTE: The Pap [...] has been evaluated with computer assisted technology. [facility] [facility] Paymaster Of Purses: SEE COMMENT [facility] Comment: YP, CT(ASCP) CT screening location: [place] [address] HPV nRNA E6/E7 Not Detected Not Detected [facility] Comment: Methodology: Locomotive Repairer Diesel-Mediated Amplification This assay detects E6/E7 viral messenger RNA (mRNA) from 14 high-risk HPV types (16,18,31,33,35,39,45,51,52,56,58,59,66,68). The analytical performance characteristics of this assay have been determined by [employer]. The modifications have not been cleared or approved by the FDA. This assay has been validated pursuant to the CLIA regulations and is used for clinical purposes. For additional information, please refer to http://education.Stupil/faq/NOM152j9 (This link if provided for information/ educational purposes only.) Interpretation/Re sult: Negative for intraepithelial lesion or malignancy. [facility] LMP: 10/03/21 [facility] Prev. BX: NONE GIVEN [facility] Prev. PAP: 04/2018 [facility] SOURCE: None given [facility] Statement Of Adequacy: SEE COMMENT [facility] Comment: Satisfactory for evaluation. Endocervical/transformation zone component absent. 11/09/2021 12:4 8 PM EDT Sri [facility] PATHOLOGY ORDERABLES Final Result Performing Organization Address [facility] Phone Number [facility] [address] [place] [address], * HEPATITIS C ANTIBODY RFLX (08/09/2019 11:23 AM EST) HEPATITIS C ANTIBODY NONREACTIVE NONREACTIVE [facility] Comment: Antibodies to HCV not detected; does not exclude early acute HCV infection. 08/09/2019 11:2 3 AM EST Historical Provider HISTORICAL/NON ORDERABLE LABS Final Result Performing Organization Address [facility] [address] [place] [address], * HIV AB/AG (08/09/2019 11:23 AM EST) [...] of detection of this assay. [employer] Operator HIV Ag/Ab Combo assay result and supplemental assay results should be interpreted in conjunction with the patient's clinical presentation, history and other laboratory results. If the results are inconsistent with clinical evidence, additional testing is suggested to confirm the result. 08/09/2019 11:2 3 AM EST Historical Provider HISTORICAL/NON ORDERABLE LABS Final Result [facility] [address] from Last 3 Months or Most Recently Relevant to Health Maintenance [place] [address] , [address] [place] [phone] [facility] Care Teams Safety Specialist Relationship Specialty Start Date End Date Chavez Tinajero MD [address] [place] [phone] PCP - General Internal Medicine 12/15/19
--- OUTSIDE RECORDS SUMMARY | 2025-04-03 09:00 | XMS_ITS | Encounter Summary ---
Author Organization [employer] Address [address] [place] [address] 7 [place] [address] Care Team Providers Care General Scrap Worker Name Role Phone Chavez Tinajero MD Primary Care Prov ider Encounter Details Date Type Department Care Team ([facility] st Contact Info) Description 08/14/2024 Orders Only [facility] [address] [place], [place] [phone] Graciela German MD [address] [place] [address] Microscopic hematuria (Primary Dx) Social History Tobacco [...] (08/26/2024 2:00 PM EST) Color Urine Yellow [facility] Appearance Urine Clear [facility] PH 6.5 5.0 - 9.0 [facility] Glucose Urine UA Negative Negative mg/dL [facility] Urine Blood Trace(A) Negative [facility] Specific Dolphin - Urine 1.020 1.005 - 1.025 [facility] Urine Protein Negative Neg-Trace mg/dL [facility] Urine Ketones Negative Negative mg/dL [facility] Nitrite Urine Negative Negative [facility] Leukocyte Esterase Urine Small (1+)(A) Negative [facility] RBC Urine 3-5(A) 0 - 2 /HPF [facility] Urine WBC 6-10(A) 0 - 5 /HPF [facility] Urine Squamous Epithelial Cell 6-10 0 - 2 /HPF [facility] Urine Bacteria 2+ None Seen [facility] Hyaline Casts, Urine 0-2 0 - 2 /LPF [facility] Urine (Urine, Random) 08/26/2024 2:00 PM EST 08/26/2024 2:08 PM EST us Graciela German MD LAB URINE ORDERABLES Final Result [facility] [address] [place] [address] [phone] documented in this encounter Visit Diagnoses Diagnosis Microscopic hematuria- Primary documented in this encounter Additional Health Concerns Assessment Noted Time PHQ-9 Depression Total Score: 3 08/08/19 25 12:51 PM EST documented as of this encounter Care Teams General Scrap Worker Relationship Specialty Start Date End Date Chavez Tinajero MD [address] [place] [phone] PCP - General Internal Medicine 12/15/19 documented as of this encounter
--- OUTSIDE RECORDS SUMMARY | 2025-04-03 09:00 | XMS_ITS | Encounter Summary ---
Author Organization [employer] Address [address] [facility] 7 [place] [address] Care Team Providers Care Wrapper Off Name Role Phone Chavez Tinajero MD Primary Care Prov ider Encounter Details Date Type Department Care Team ([facility] st Contact Info) Description 08/15/2024 Telephone [facility] [address] [place], [place] [phone] Chavez Tinajero MD [address] [place] [address] Social History Tobacco Use Types Packs/Day Years [...] - 08/15/2024 11:40 AM EST Tc from [facility] received a call from pcp office and is returning the call. documented in this encounter Plan of Treatment Not on file documented as of this encounter Visit Diagnoses Not on filedocumented in this encounter Additional Health Concerns Assessment Noted Time PHQ-9 Depression Total Score: 3 08/08/19 25 12:51 PM EST documented as of this encounter Care Teams Wrapper Off Relationship Specialty Start Date End Date Chavez Tinajero MD [address] [place] [phone] PCP - General Internal Medicine 12/15/19 documented as of this encounter
--- OUTSIDE RECORDS SUMMARY | 2025-04-03 09:00 | XMS_ITS | Encounter Summary ---
Author Organization [employer] Address [address] [place] [address] Care Team Providers Care Boiler Fitter Name Role Phone Chavez Tinajero MD Primary Care Prov ider Reason for Referral * Imaging (Routine) - Closed Specialty Diagnoses / Procedures Referred By Contac t Referred To Contact Radiology Diagnoses History of kidney stones Procedures US RENAL BI Chavez Tinajero MD [address] [place] [address] Phone: tel: fax: [address] Phone: tel: fax: Referral ID Status Reason Start Date Expiration Date Visits Re quested Visits Authorized [id number] Closed 08/30/2024 08/30/2025 1 1 Encounter Details Date Type Department Care Team (Late st Contact Info) Description 08/30/2024 Orders Only [facility] [address] [place] [address] Chavze Tinajero MD [address] [place], [place] [phone] History of kidney stones (Primary Dx) Social [...] PM EST Narrative 09/16/2024 7:31 AM EST [address] [address] Ultrasound Report Signed Patient: Floressheryl MartinezNedra MR# : [id number] : 1985 Acct:[id number] Age/Sex: 39 / F ADM Date: 09/13/24 Loc: HO.US Attending Dr: Chavez Estrella MD Ordering Physician: Chavez Tinajero MD Date of Service: 09/13/24 Procedure(s): US renal BI Accession Number(s): [id number] cc: Chavez Tinajero MD EXAMINATION: US KIDNEY [...] 09/16/24 0728 DD/ 1429 TD/TT: 09/13/24 1438 Maintenance Machine Repairer: Procedure Note Donotuseinterpreter, Image - 09/16/2024 [place] [address] Ultrasound Report Signed Patient: Nedra HillMR# : [id number] : 1985Acct:[id number] Age/Sex: 39 / FADM Date: 09/13/24 Loc: HO.US Attending Dr: Chavez Estrella MD Ordering Physician: Chavez Tinajero MD Date of Service: 09/13/24 Procedure(s): US renal BI Accession Number(s): [id number] cc: Chavez Tinajero MD EXAMINATION: US KIDNEY [...] 09/16/24 0728 DD/ 1429 TD/TT: 09/13/24 1438 Maintenance Machine Repairer: Chavez Estrella MD IMG US PROCEDURES Final Result documented in this encounter Visit Diagnoses Diagnosis History of kidney stones- Primary documented in this encounter Additional Health Concerns Assessment Noted Time PHQ-9 Depression Total Score: 3 08/08/19 12:51 PM EST documented as of this encounter Care Teams Boiler Fitter Relationship Specialty Start Date End Date Chavez Tinajero MD [address] [place] [phone] PCP - General Internal Medicine 12/15/19 documented as of this encounter
[2025-04-03 09:05] LABS: Appearance Urine Clear; Glucose Urine UA Negative (Negative); PH 5.5 (5.0-9.0); Specific Gravity - Urine 1.020 (1.005-1.025); UMIC TRIGGER UA YES
== END 2025-04-03 08:13 | disposition home or self-care (01) ==
LOC: HO.LAB 08:12
PROVIDERS: PCP Internal Medicine; Visit Provider Nurse Practitioner Family
DX: N20.0 Calculus of kidney (principal); R14.0 Abdominal distension (gaseous)
CPT/HCPCS: 81001; 87086; 87338